=== PATIENT | female | born 1935 | race Caucasian/White ===

== ENCOUNTER → 2016-10-17 | Outpatient (CLI) | payer OTHER ==
[2016-10-17 13:06] LABS: URINE APPEARANCE CLEAR (CLEAR); URINE BILIRUBIN NEG (NEG); URINE COLOR YELLOW; URINE NITRITE POS (NEG); URINE PH 7.5 (4.5-7.5); URINE SPECIFIC GRAVITY 1.011 (1.000-1.030); UROBILINOGEN NEG (NEG)
[2016-10-17 13:13] LABS: MANUAL MICROSCOPIC REQUIRED? NO; REVIEW REQ? NO
[2016-10-17 13:14] LABS: SULFASALICYLIC ACID POS (NEG)
== END | disposition home or self-care (01) ==
LOC: C.LABOAKS 13:21
PROVIDERS: ATTEND Nurse Practitioner
DX: R30.0 Dysuria (principal)

== ENCOUNTER → 2016-11-21 | Outpatient (CLI) | payer OTHER ==
--- NOTE | 2016-11-29 08:48 | CODING QUERY MEDICAL NECESSITY ---
SUPPORTING DIAGNOSIS NEEDED A supporting diagnosis is required for the test/procedure performed on this patient in order for us to be reimbursed by the patient's insurance. Please provide a supporting diagnosis for the following test/procedure listed below next to the test name along with your signature. *If there is no additional diagnosis for this patient that would support the following test/procedure please document that below next to the test/procedure. Test(s)/Procedure(s) that require a supporting diagnosis: * VITAMIN B12 DIAGNOSIS: Provider Signature: Date: Thank you Barbara [place] [employer] Once completed, please kindly fax back to [phone] For questions please call [phone]
== END | disposition home or self-care (01) ==
LOC: C.LABOAKS 10:34
PROVIDERS: ATTEND Nurse Practitioner
DX: D64.9 Anemia, unspecified (principal); E53.8 Deficiency of other specified B group vitamins

== ENCOUNTER → 2017-03-21 | Outpatient (CLI) | payer OTHER ==
--- NOTE | 2017-03-21 11:24 | DIAGNOSTIC IMAGING REPORT ---
THORACIC SPINE 3 VIEWS ROUTINE CLINICAL HISTORY: 82 years-old Female presenting with M81.0 [id number], mid back pain. TECHNIQUE: 3 views of the thoracic spine were obtained. COMPARISON: None. FINDINGS: Dextrocurvature of the thoracolumbar junction. Normal thoracic kyphosis. Vertebral bodies maintain normal height and alignment. Intervertebral disc spaces preserved. No radiographic evidence of a compression fracture or subluxation. No advanced degenerative change in the thoracic spine. Atherosclerosis of the aorta. Visualized portion of the lungs clear. IMPRESSION: No radiographic evidence of a compression deformity or subluxation. No advanced degenerative change. Mild scoliosis. Electronically signed by: Zacarias Jain M.D. 03/21/2017 11:22 AM Dictated Date/Time: 03/21/2017 11:21 AM
[2017-03-22 17:53] LABS: ALBUMIN 4.1 G/DL (3.8-4.8); GAMMA GLOBULIN 1.2 G/DL (0.8-1.7); TOTAL PROTEIN 7.1 G/DL (6.2-8.3)
== END | disposition home or self-care (01) ==
LOC: C.LAB1850 10:40
PROVIDERS: ATTEND Internal Medicine Rheumatology
DX: M81.0 Age-related osteoporosis without current pathological fracture (principal); E55.9 Vitamin D deficiency, unspecified; E61.8 Deficiency of other specified nutrient elements

== ENCOUNTER → 2017-05-08 | Outpatient (CLI) | payer OTHER ==
[~2017-05-08] MED LIST: ACET-1311 PO; TRAM-10 PO
== END | disposition home or self-care (01) ==
LOC: C.LAB1850 11:55
PROVIDERS: ATTEND Internal Medicine Rheumatology
DX: E55.9 Vitamin D deficiency, unspecified (principal)

== ENCOUNTER 2017-05-10 17:48 | Emergency (ER) | payer OTHER ==
[~2017-05-10] VITALS: Ht 162.6 cm; Wt 58.1 kg
[2017-05-10 18:00] VITALS: TEMP 36.5; Ht 162.6 cm; Wt 58.1 kg
[2017-05-10] MEDS ORDERED: HYDROCODONE/ACETAMOPHEN 5/325MG TAB PO STA (18:18)
[2017-05-10] MEDS ORDERED: ACET-1311 PO (18:30)
[2017-05-10] MEDS ORDERED: TRAM-10 PO (18:30)
--- NOTE | 2017-05-10 19:30 | DIAGNOSTIC IMAGING REPORT ---
RIGHT HUMERUS 2 VIEWS CLINICAL HISTORY: Fall with right arm pain. FINDINGS: AP and lateral views of the right humerus are obtained. No prior studies are available for comparison at the time of dictation. The skeletal structures are osteopenic. There is an impacted fracture of the humeral head and neck. Small posteriorly distracted fragments are identified. Overlying soft tissue edema is noted. The remainder of the humerus appears intact. There is no evidence of shoulder dislocation. The elbow joint is grossly maintained. IMPRESSION: Osteopenia noting an impacted fracture of the right humeral head and neck. Electronically signed by: Raul Gramajo M.D. 05/10/2017 7:28 PM Dictated Date/Time: 05/10/2017 7:27 PM
--- NOTE | 2017-05-10 19:30 | DIAGNOSTIC IMAGING REPORT ---
CT SCAN OF THE LUMBAR SPINE WITHOUT IV CONTRAST CLINICAL HISTORY: Fall with low back pain. COMPARISON STUDY: No priors. TECHNIQUE: CT scan of the lumbar spine is performed from the lower thoracic spine to the sacrum. Images are reviewed in the axial, sagittal, and coronal planes. IV contrast was not administered for this examination. A dose lowering technique was utilized adhering to the principles of ALARA. The examination is degraded by scoliosis. CT DOSE: 752.89 mGy.cm FINDINGS: The skeletal structures are osteopenic. There is no evidence of fracture or malalignment involving the lumbar spine. Vertebral body height is maintained. Minimal anterolisthesis is seen at L4-L5. Alignment is otherwise preserved. There is moderate lumbar levocurvature centered at L3. The transverse and spinous processes are intact. There is no evidence of spondylolysis. No lytic or blastic lesion is seen. Anterior and lateral marginal osteophytes are seen throughout. Moderate facet arthropathy is seen in the lower lumbar region. There is moderate to advanced disc space narrowing seen at L1-L2, L2-L3, and L5-S1. Mild disc space narrowing is seen at the remaining lumbar levels. Posterior disc osteophyte complexes are seen at L1-L2, L2-L3, and L3-L4. These may contribute to multilevel acquired compromise of the central canal. There is no CT evidence of large disc herniation. The visualized sacrum and bony pelvis appear intact. There is fatty atrophy of the paraspinous musculature. There is asymmetric atrophy of the right iliopsoas musculature as compared to the left. Advanced atherosclerotic calcification is seen in the abdominal aorta. IMPRESSION: 1. There is no evidence of fracture or malalignment involving the lumbar spine. 2. Osteopenia with advanced spondylotic change and scoliosis as above. Dictated: 05/10/2017 7:13 PM Transcribed: 05/10/2017 7:29 PM [email or web address] Electronically signed by: Raul Gramajo M.D. 05/10/2017 7:29 PM Dictated Date/Time: 05/10/2017 7:13 PM
--- NOTE | 2017-05-10 19:50 | EMERGENCY ROOM VISIT NOTE ---
ED Visit Note First contact with patient: 18:08 The patient was seen and examined with Julianna Valles PA-C. I agree with the history, physical and findings. Please see the note for disposition and details.
--- NOTE | 2017-05-10 20:01 | EMERGENCY ROOM VISIT NOTE ---
History First contact with patient: 18:08 Chief Complaint: FALL Stated Complaint: FALL/ BACK & R ARM PAIN / OAKS History of Present Illness The patient is a 82 year old female who presents to the Emergency Room via ambulance from the [facility] with complaints of falling and injuring her right arm and low back. The patient states that she got her feet caught in the carpet and fell landing on her low back and on her right arm. The patient denies any head injury or loss of consciousness. The patient denies any dizziness or visual changes. The patient is not on any blood thinners. The patient denies any neck or upper back pain. The patient denies any known stone tingling in her lower legs. Patient denies a loss of bowel or bladder control. The patient denies any saddle anesthesia. The patient points to the mid upper arm as he area pain. The patient denies any elbow or wrist pain. Review of Systems 10 system review was performed and was negative unless stated otherwise history of present illness. Past Medical/Surgical History Alzheimer's dementia, GERD, carotid artery disease, osteoporosis, osteoarthritis , acute glaucoma, hypertension Social History Smoking Status: Never Smoker Housing Status: [facility] Current/Historical Medications Scheduled PRN Tramadol (Ultram), 1 TAB PO TID PRN for Pain Miscellaneous Medications Acetaminophen (Tylenol), 325 MG PO Physical Exam Vital Signs Date Time Temp Pulse Resp B/P (MAP) Pulse Ox O2 Delivery O2 Flow Rate FiO2 05/10/17 18:28 82 05/10/17 18:00 36.5 77 22 170/82 96 Room Air Physical Exam GENERAL: 82-year-old white female appears in no acute distress. MENTAL Status: Patient is alert. The patient appears to be demented. She asked the same questions repeatedly. She does not remember what we tell her. HEAD: Atraumatic, nontender to palpation. EYES: PERRLA. EOMs intact. EARS: Canals clear. TMs without hemotympanum a.m. NECK: Supple, no lymphadenopathy noted. No carotid bruits noted. LUNGS: Clear auscultation without wheezes rales or rhonchi. CARDIAC: Regular rate and rhythm without murmur. Pulses is full and equal throughout. NEURO: Grossly intact LUMBAR SPINE: No gross bony deformity noted. The patient is tender to palpation over the lower lumbar spinous processes. She is also tender to palpation in the paravertebral region at this level. Range of motion was not assessed. Muscle strength is 5 out of 5 bilateral lower extremities and symmetrical. RIGHT HUMERUS: No gross bony deformity noted. The patient is tender to palpation over the mid to proximal humerus. She is non-tender to palpation over the shoulder joint as well as the elbow joint. Elbow has full range of motion. Computer Forensic Examiner strength is 5 out of 5 as compared to the left. Medical Decision & Procedures ER Provider Diagnostic Interpretation: CT SCAN OF THE LUMBAR SPINE WITHOUT IV CONTRAST CLINICAL HISTORY: Fall with low back pain. COMPARISON STUDY: No priors. TECHNIQUE: CT scan of the lumbar spine is performed from the lower thoracic spine to the sacrum. Images are reviewed in the axial, sagittal, and coronal planes. IV contrast was not administered for this examination. A dose lowering technique was utilized adhering to the principles of ALARA. The examination is degraded by scoliosis. CT DOSE: 752.89 mGy.cm FINDINGS: The skeletal structures are osteopenic. There is no evidence of fracture or malalignment involving the lumbar spine. Vertebral body height is maintained. Minimal anterolisthesis is seen at L4-L5. Alignment is otherwise preserved. There is moderate lumbar levocurvature centered at L3. The transverse and spinous processes are intact. There is no evidence of spondylolysis. No lytic or blastic lesion is seen. Anterior and lateral marginal osteophytes are seen throughout. Moderate facet arthropathy is seen in the lower lumbar region. There is moderate to advanced disc space narrowing seen at L1-L2, L2-L3, and L5-S1. Mild disc space narrowing is seen at the remaining lumbar levels. Posterior disc osteophyte complexes are seen at L1-L2, L2-L3, and L3-L4. These may contribute to multilevel acquired compromise of the central canal. There is no CT evidence of large disc herniation. The visualized sacrum and bony pelvis appear intact. There is fatty atrophy of the paraspinous musculature. There is asymmetric atrophy of the right iliopsoas musculature as compared to the left. Advanced atherosclerotic calcification is seen in the abdominal aorta. IMPRESSION: 1. There is no evidence of fracture or malalignment involving the lumbar spine. 2. Osteopenia with advanced spondylotic change and scoliosis as above. Dictated: 05/10/2017 7:13 PM Transcribed: 05/10/2017 7:29 PM [email or web address] Electronically signed by: Raul Gramajo M.D. 05/10/2017 7:29 PM Dictated Date/Time: 05/10/2017 7:13 PM The status of this report is Signed. Draft = Not yet reviewed or approved by Radiologist. Signed = Reviewed and approved by Radiologist. <AttendingPhy></AttendingPhy> <FamilyPhy>Zacarias Almanza M.D.</FamilyPhy> < PrimaryPhy>Zacarias Almanza M.D.</PrimaryPhy> <UnitNumber>[id number]</UnitNumber> < VisitNumber>[id number]</VisitNumber> <PatientName>CURT BEDOLLA</PatientName > <DateOfBirth>1935</DateOfBirth> <Location>[facility]</Location> <ServiceDate> 05/10/17</ServiceDate> <MNE>ESINDI</MNE> <OrderingPhy>Patsy Chavez PA-C</ OrderingPhy> <OrderingPhyMNE>f rep ord dr fontaine</OrderingPhyMNE> <DictatingPhyMNE> f rep dict dr fontaine</DictatingPhyMNE> <CCListMNE>f rep ct zhen</CCListMNE> < AdmittingPhyMNE>f pt admit dr fontaine</AdmittingPhyMNE> <AttendingPhyMNE>f pt attend dr fontaine</AttendingPhyMNE> <ConsultingPhyMNE>f pt consult dr fontaine</ConsultingPhyMNE> <FamilyPhyMNE>f pt fam dr fontaine</FamilyPhyMNE> <OtherPhyMNE>f pt other dr fontaine</OtherPhyMNE> < PrimaryPhyMNE>f pt prim care dr fontaine</PrimaryPhyMNE> <ReferringPhyMNE>f pt referring dr fontaine</ReferringPhyMNE> RIGHT HUMERUS 2 VIEWS CLINICAL HISTORY: Fall with right arm pain. FINDINGS: AP and lateral views of the right humerus are obtained. No prior studies are available for comparison at the time of dictation. The skeletal structures are osteopenic. There is an impacted fracture of the humeral head and neck. Small posteriorly distracted fragments are identified. Overlying soft tissue edema is noted. The remainder of the humerus appears intact. There is no evidence of shoulder dislocation. The elbow joint is grossly maintained. IMPRESSION: Osteopenia noting an impacted fracture of the right humeral head and neck. Electronically signed by: Raul Gramajo M.D. 05/10/2017 7:28 PM Dictated Date/Time: 05/10/2017 7:27 PM The status of this report is Signed. Draft = Not yet reviewed or approved by Radiologist. Signed = Reviewed and approved by Radiologist. Medications Administered Medications (Trade) Dose Ordered Sig/[place] Route Start Time Stop Time Status Last Admin Dose Admin Acetaminophen/ Hydrocodone Bitart (Ayr 5/325 Tab) 1 tab NOW STAT PO 05/10/17 18:18 05/10/17 18:22 DC 05/10/17 18:30 1 TAB ED Course The patient was evaluated. The patient was given Ayr 5/325 mg one tablet by mouth for pain. CT of the lumbar spine was ordered and interpreted by the radiologist as above without any acute fractures.. X-ray of the right humerus was ordered and interpreted by the radiologist as above with impacted fracture of the humeral neck and head. The patient was independently evaluated by Dr Garay who agreed with treatment plan. The patient was placed in an arm sling and discharged back to the [facility] in stable condition.. Medical Decision The patient had a ground-level fall and did not strike her head and did not complain of any head pain or neck pain therefore CT of the head and neck were not performed. The patient pointed directly to her right humerus as the area of pain into her lower back. Therefore x-rays of the humerus was ordered as well as a CT of the low back due to the patient's history of osteoporosis. The patient will be placed in an arm sling and will follow-up with orthopedics on an outpatient basis. [place] Drug Monitoring Program Search Results: patient reviewed within database Medication Reconcilliation Current Medication List: was personally reviewed by pa Blood Pressure Screening Patient's blood pressure: Elevated blood pressure Blood pressure disposition: Elevated BP felt to be situational Impression Primary Impression: Fall Additional Impressions: Fracture, humerus, anatomical neck Lumbar contusion Departure Information Dispostion Home / Self-Care Condition GOOD Referrals Zacarias Almanza M.D. (PCP) Forms HOME CARE DOCUMENTATION FORM, IMPORTANT VISIT INFORMATION Patient Instructions Humerus , [email or web address] Additional Instructions Keep arm in sling until evaluated by orthopedics. Call [facility] tomorrow for follow-up appointment. Tylenol as needed for pain. Take the tramadol the ER already prescribed on an as-needed basis for more severe pain. Problem Qualifiers Primary Impression: Fall Encounter type: initial encounter Qualified Codes: W19.XXXA - Unspecified fall, initial encounter
[2017-05-10 20:54] VITALS: BP 149/71; PULSE 82; O2SAT 100
== END 2017-05-10 20:57 | disposition home or self-care (01) ==
LOC: EDBD 17:48 → C.EDA 17:50
DX: S49.91XA Unspecified injury of right shoulder and upper arm, initial encounter (principal); S42.291A Other displaced fracture of upper end of right humerus, initial encounter for closed fracture; S30.0XXA Contusion of lower back and pelvis, initial encounter; Y92.129 Unspecified place in nursing home as the place of occurrence of the external cause; W18.09XA Striking against other object with subsequent fall, initial encounter; G30.9 Alzheimer's disease, unspecified; F02.80 Dementia in other diseases classified elsewhere, unspecified severity, without behavioral disturbance, psychotic disturbance, mood disturbance, and anxiety; K21.9 Gastro-esophageal reflux disease without esophagitis; I25.10 Atherosclerotic heart disease of native coronary artery without angina pectoris; M81.0 Age-related osteoporosis without current pathological fracture; I10 Essential (primary) hypertension; M19.90 Unspecified osteoarthritis, unspecified site

== ENCOUNTER 2017-05-31 07:49 | Emergency (ER) | payer OTHER ==
[~2017-05-31] VITALS: Ht 162.6 cm; Wt 52.3 kg
[2017-05-31 08:06] VITALS: Ht 162.6 cm; Wt 52.3 kg
[2017-05-31] MEDS ORDERED: ACET-1256 PO (08:18)
[2017-05-31] MEDS ORDERED: ERGO500037 PO (08:18)
[2017-05-31] MEDS ORDERED: AMLO-114 PO (08:18)
[2017-05-31] MEDS ORDERED: MCRK/10 PO (08:18)
[2017-05-31] MEDS ORDERED: DONE10TA12 PO (08:18)
[2017-05-31] MEDS ORDERED: ASPI81TA28 PO (08:18)
[2017-05-31] MEDS ORDERED: SENN-91 PO (08:18)
[2017-05-31] MEDS ORDERED: TRAM-10 PO (08:18)
[2017-05-31] MEDS ORDERED: CALC500T67 PO (08:18)
[2017-05-31] MEDS ORDERED: CYAN10005 PO (08:18)
[2017-05-31] MEDS ORDERED: CHOLCAP5 PO (08:18)
[2017-05-31] MEDS ORDERED: DOCU100C31 PO (08:18)
[2017-05-31 08:45] LABS: BASO % 0.2 %; BASO ABS # 0.02 K/uL (0-0.2); EOS % 0.3 %; EOS ABS # 0.04 K/uL (0-0.5); HEMATOCRIT 38.9 % (37-47); HEMOGLOBIN 13.5 g/dL (12.0-16.0); IG# 0.06 K/uL (0.00-0.02); LYMPH % 10.7 %; LYMPH ABS # 1.23 K/uL (1.2-3.4); MEAN CELL VOLUME 96.5 fL (80-100); MEAN CORPUSCULAR HEMOGLOBIN 33.5 pg (25-34); MEAN CORPUSCULAR HGB CONC 34.7 g/dl (32-36); MEAN PLATELET VOLUME 8.6 fL (7.4-10.4); MONO % 13.1 %; MONO ABS # 1.51 K/uL (0.11-0.59); NEUT % 75.2 %; NEUT ABS # 8.67 K/uL (1.4-6.5); PLATELET COUNT 410 K/uL (130-400); RED CELL DISTRIBUTION WIDTH CV 13.5 % (11.5-14.5); RED CELL DISTRIBUTION WIDTH SD 47.4 fL (36.4-46.3); WHITE BLOOD COUNT 11.53 K/uL (4.8-10.8)
[2017-05-31 08:52] LABS: INR 1.1 (0.9-1.1); PTT PATIENT 34.9 SECONDS (21.0-31.0)
--- NOTE | 2017-05-31 08:53 | DIAGNOSTIC IMAGING REPORT ---
R HAND MIN 3 VIEWS ROUTINE HISTORY: 82 years-old Female hand swelling/pain acute right hand pain and swelling COMPARISON: None available TECHNIQUE: 4 views of the right hand FINDINGS: The bones appear very demineralized. Chondrocalcinosis is noted about several of the metacarpophalangeal joints and also within the region of the TFCC. Scapholunate interval measures in the upper limits of normal, 3 mm. There is no acute fracture or dislocation identified. Remote fracture deformity of the mid shaft fifth metacarpal. There is mild to moderate soft tissue swelling about the hand, notably seen within the dorsal hand and also about the wrist volarly. No opaque foreign body identified. Multifocal degenerative changes are noted with severe first carpometacarpal, triscaphe and moderate to severe metacarpophalangeal and interphalangeal degenerative changes throughout. Chronic remodeling changes are seen most notably within the DIP and PIP joints. No evidence of erosive arthropathy. IMPRESSION: 1. No acute fracture or dislocation. 2. Osteoporotic appearance of the bones with multifocal degenerative changes and chondrocalcinosis as above. 3. Scapholunate interval measures in the upper limits of normal. 4. Mild to moderate soft tissue swelling about the hand and wrist. 5. Remote fracture deformity of the fifth metacarpal. The above report was generated using voice recognition software. It may contain grammatical, syntax or spelling errors. Electronically signed by: Alex Carlson M.D. 05/31/2017 8:51 AM Dictated Date/Time: 05/31/2017 8:47 AM
--- NOTE | 2017-05-31 09:04 | DIAGNOSTIC IMAGING REPORT ---
CHEST ONE VIEW PORTABLE CLINICAL HISTORY: EVALUATE WEAKNESS dyspnea COMPARISON STUDY: None FINDINGS: Prominent parenchymal markings primarily in the upper lobe regions and left base. Diaphragms are smooth. No significant cardiac enlargement. Mild ectasia of the thoracic aorta. Old fracture right humeral neck. 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 Mild superimposed inflammatory process is not entirely excluded in the absence of prior exams. The above report was generated using voice recognition software. It may contain grammatical, syntax or spelling errors. Electronically signed by: Jacob Chavez M.D. 05/31/2017 9:03 AM Dictated Date/Time: 05/31/2017 9:02 AM
--- NOTE | 2017-05-31 09:05 | DIAGNOSTIC IMAGING REPORT ---
HEAD WITHOUT CONTRAST (CT) CLINICAL HISTORY: 82 years-old Female with EVALUATE WEAKNESS. Acute weakness status post fall TECHNIQUE: Multiple axial CT images of the head were obtained without contrast. A dose lowering technique was utilized adhering to the principles of ALARA. CT DOSE: 614.27 mGy.cm COMPARISON: None. FINDINGS: No acute intracranial hemorrhage, midline shift, intracranial mass, hydrocephalus, territorial ischemia or abnormal extra-axial collection. Moderate atrophy with ex vacuo ventriculomegaly. Multifocal patchy and confluent areas of decreased attenuation are seen within the subcortical, deep and periventricular white matter suggesting chronic microvascular ischemic changes. The calvarium is intact. The mastoid air cells, and middle ear cavities are clear. Small air-fluid level of the left sphenoid sinus compatible with acute sinusitis. Remaining paranasal sinuses appear generally clear. Soft tissues and orbits are unremarkable. IMPRESSION: 1. No acute intracranial abnormality or calvarial fracture. 2. Mild acute left sphenoid sinus disease. The above report was generated using voice recognition software. It may contain grammatical, syntax or spelling errors. Electronically signed by: Alex Carlson M.D. 05/31/2017 9:03 AM Dictated Date/Time: 05/31/2017 9:00 AM
[2017-05-31 09:16] LABS: ALBUMIN 2.8 gm/dl (3.4-5.0); ALT/SGPT 26 U/L (12-78); BLOOD UREA NITROGEN 8 mg/dl (7-18); CALCIUM 8.1 mg/dl (8.5-10.1); CARBON DIOXIDE 26 mmol/L (21-32); CREATININE 0.38 mg/dl (0.60-1.20); GLUCOSE 93 mg/dl (70-99); LIPASE 144 U/L (73-393); SODIUM 126 mmol/L (136-145)
[2017-05-31 09:24] LABS: ALKALINE PHOSPHATASE 110 U/L (45-117); AST/SGOT 21 U/L (15-37); TOTAL PROTEIN 6.4 gm/dl (6.4-8.2)
[2017-05-31] MEDS ORDERED: CEFTRIAXONE SOD INJ 1 GM ADDVIAL IV STA (09:26)
[2017-05-31 10:35] VITALS: O2SAT 92
[2017-05-31] MEDS ORDERED: CEPH500C PO (11:07)
--- NOTE | 2017-05-31 11:07 | EMERGENCY ROOM VISIT NOTE ---
History Report prepared by Maria Del Carmen: Blanka Guerrero Under the Supervision of: Dr. Freddie Garay M.D. 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 She presents to the ED by EMS. The fall was not witnessed. Positive right hand pain. Negative chest pain, SOB, neck pain, back pain, arm pain, leg pain. The history is somewhat limited secondary to the patient's Alzheimer's. 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 Review of Systems Limited secondary to patient's Alzheimer's. Past Medical & Surgical Medical Problems: (1) Acute glaucoma (2) Alzheimer's dementia (3) Carotid artery disease (4) GERD (gastroesophageal reflux disease) (5) Hypertension (6) Osteoarthritis (7) Osteoporosis Family History Noncontributory secondary to age. Social History Smoking Status: Never Smoker Housing Status: custodial Current/Historical Medications Scheduled Amlodipine (Norvasc), 10 MG PO QAM Aspirin (Aspirin Ec), 81 MG PO QAM Calcium Carbonate-Vitamin D (Oyst-Juan Diego-D 500), 1 TAB PO QAM Cephalexin Monohydrate (Keflex), 500 MG PO QID Cholecalciferol (Vitamin D3), 5,000 UNITS PO QAM Cyanocobalamin (Vitamin B-12), 1,000 MCG PO QAM Donepezil Hydrochloride (Aricept), 10 MG PO HS Ergocalciferol (Vitamin D 04151 Unit), 50,000 UNIT PO WK Potassium Chloride (K-Tabs), 10 MEQ PO BID Sennosides-Docusate Sodium (Senna S), 1 TAB PO DAILY Scheduled PRN Acetaminophen (Tylenol), 500 MG PO Q4H PRN for Pain or Fever Docusate Sodium (Docusate Sodium), 100 MG PO BID PRN for Constipation Tramadol (Ultram), 50 MG PO Q6H PRN for Pain Allergies Coded Allergies: SHO Inhibitors (Unverified Allergy, Mild, unknown, 05/10/17) Alendronate (Unverified Allergy, Mild, unknown, 05/10/17) Amoxicillin (Unverified Allergy, Mild, unknown, 05/10/17) Clavulanic Acid (Unverified Allergy, Mild, unknown, 05/10/17) Diclofenac (Unverified Allergy, Mild, unknown, 05/10/17) Pravastatin (Unverified Allergy, Mild, unknown, 05/10/17) Rosuvastatin (Unverified Allergy, Mild, unknown, 05/10/17) Statins (Unverified Allergy, Mild, unknown, 05/10/17) Ezetimibe (Unverified Allergy, Unknown, unknown, 05/10/17) Physical Exam Vital Signs Date Time Temp Pulse Resp B/P (MAP) Pulse Ox O2 Delivery O2 Flow Rate FiO2 05/31/17 11:37 36.8 91 24 122/93 95 05/31/17 11:06 91 24 95 05/31/17 11:01 122/93 05/31/17 10:36 87 20 91 05/31/17 10:35 92 Nasal Cannula 2.0 05/31/17 10:31 123/72 05/31/17 10:29 86 19 92 05/31/17 10:01 127/73 05/31/17 09:59 81 21 93 05/31/17 09:31 109/59 05/31/17 09:29 64 18 91 05/31/17 09:24 93 19 93 05/31/17 09:00 121/67 05/31/17 08:59 127/68 05/31/17 08:30 117/78 05/31/17 08:24 90 15 91 05/31/17 08:19 89 17 93 Room Air 05/31/17 08:06 94 Room Air 05/31/17 08:04 97 05/31/17 08:00 123/70 05/31/17 07:57 36.8 90 18 130/69 94 Room Air Physical Exam GENERAL: Awake, alert, well-appearing, NAD HENT: Normocephalic, atraumatic. EYES: Anisocoria right greater than left. Normal conjunctiva. Sclera non- icteric. NECK: Supple. No nuchal rigidity. FROM. RESPIRATORY: CTAB, no rhonchi, wheezing, crackles CARDIAC: RRR, no MRG ABDOMEN: Soft, NTND, BS+ MSK: RUE hand exam is limited secondary to pain. Patient has some swelling and redness over the dorsum of the right hand. Sensation intact. Blanching erythema over that area. No pain in the neck, back, chest, abdomen, LUE, and b/l LE. NEURO: GCS 15, CN 2-12 intact, moves all 4s on command SKIN: No rash or jaundice noted. Medical Decision & Procedures ER Provider Diagnostic Interpretation: Xray results as stated below per my and radiologist interpretation. Radiology results as stated below per my review and radiologist interpretation: CHEST ONE VIEW PORTABLE CLINICAL HISTORY: EVALUATE WEAKNESS dyspnea COMPARISON STUDY: None FINDINGS: Prominent parenchymal markings primarily in the upper lobe regions and left base. Diaphragms are smooth. No significant cardiac enlargement. Mild ectasia of the thoracic aorta. Old fracture right humeral neck. 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 Mild superimposed inflammatory process is not entirely excluded in the absence of prior exams. The above report was generated using voice recognition software. It may contain grammatical, syntax or spelling errors. Electronically signed by: Jacob Chavez M.D. 05/31/2017 9:03 AM Dictated Date/Time: 05/31/2017 9:02 AM R HAND MIN 3 VIEWS ROUTINE HISTORY: 82 years-old Female hand swelling/pain acute right hand pain and swelling COMPARISON: None available TECHNIQUE: 4 views of the right hand FINDINGS: The bones appear very demineralized. Chondrocalcinosis is noted about several of the metacarpophalangeal joints and also within the region of the TFCC. Scapholunate interval measures in the upper limits of normal, 3 mm. There is no acute fracture or dislocation identified. Remote fracture deformity of the mid shaft fifth metacarpal. There is mild to moderate soft tissue swelling about the hand, notably seen within the dorsal hand and also about the wrist volarly. No opaque foreign body identified. Multifocal degenerative changes are noted with severe first carpometacarpal, triscaphe and moderate to severe metacarpophalangeal and interphalangeal degenerative changes throughout. Chronic remodeling changes are seen most notably within the DIP and PIP joints. No evidence of erosive arthropathy. IMPRESSION: 1. No acute fracture or dislocation. 2. Osteoporotic appearance of the bones with multifocal degenerative changes and chondrocalcinosis as above. 3. Scapholunate interval measures in the upper limits of normal. 4. Mild to moderate soft tissue swelling about the hand and wrist. 5. Remote fracture deformity of the fifth metacarpal. The above report was generated using voice recognition software. It may contain grammatical, syntax or spelling errors. Electronically signed by: Alex Carlson M.D. 05/31/2017 8:51 AM Dictated Date/Time: 05/31/2017 8:47 AM HEAD WITHOUT CONTRAST (CT) CLINICAL HISTORY: 82 years-old Female with EVALUATE WEAKNESS. Acute weakness status post fall TECHNIQUE: Multiple axial CT images of the head were obtained without contrast. A dose lowering technique was utilized adhering to the principles of ALARA. CT DOSE: 614.27 mGy.cm COMPARISON: None. FINDINGS: No acute intracranial hemorrhage, midline shift, intracranial mass, hydrocephalus, territorial ischemia or abnormal extra-axial collection. Moderate atrophy with ex vacuo ventriculomegaly. Multifocal patchy and confluent areas of decreased attenuation are seen within the subcortical, deep and periventricular white matter suggesting chronic microvascular ischemic changes. The calvarium is intact. The mastoid air cells, and middle ear cavities are clear. Small air-fluid level of the left sphenoid sinus compatible with acute sinusitis. Remaining paranasal sinuses appear generally clear. Soft tissues and orbits are unremarkable. IMPRESSION: 1. No acute intracranial abnormality or calvarial fracture. 2. Mild acute left sphenoid sinus disease. The above report was generated using voice recognition software. It may contain grammatical, syntax or spelling errors. Electronically signed by: Alex Carlson M.D. 05/31/2017 9:03 AM Dictated Date/Time: 05/31/2017 9:00 AM Laboratory Results 05/31/17 08:30 Red Blood Count 4.03, Mean Corpuscular Volume 96.5, Mean Corpuscular Hemoglobin 33.5, Mean Corpuscular Hemoglobin Concent 34.7, Mean Platelet Volume 8.6, Neutrophils (%) (Auto) 75.2, Lymphocytes (%) (Auto) 10.7, Monocytes (%) (Auto) 13.1, Eosinophils (%) (Auto) 0.3, Basophils (%) (Auto) 0.2, Neutrophils # (Auto ) 8.67, Lymphocytes # (Auto) 1.23, Monocytes # (Auto) 1.51, Eosinophils # (Auto ) 0.04, Basophils # (Auto) 0.02 05/31/17 08:30 Test 05/31/17 08:30 White Blood Count 11.53 K/uL (4.8-10.8) Red Blood Count 4.03 M/uL (4.2-5.4) Hemoglobin 13.5 g/dL (12.0-16.0) Hematocrit 38.9 % (37-47) Mean Corpuscular Volume 96.5 fL (80-100) Mean Corpuscular Hemoglobin 33.5 pg (25-34) Mean Corpuscular Hemoglobin Concent 34.7 g/dl (32-36) Platelet Count 410 K/uL (130-400) Mean Platelet Volume 8.6 fL (7.4-10.4) Neutrophils (%) (Auto) 75.2 % Lymphocytes (%) (Auto) 10.7 % Monocytes (%) (Auto) 13.1 % Eosinophils (%) (Auto) 0.3 % Basophils (%) (Auto) 0.2 % Neutrophils # (Auto) 8.67 K/uL (1.4-6.5) Lymphocytes # (Auto) 1.23 K/uL (1.2-3.4) Monocytes # (Auto) 1.51 K/uL (0.11-0.59) Eosinophils # (Auto) 0.04 K/uL (0-0.5) Basophils # (Auto) 0.02 K/uL (0-0.2) RDW Standard Deviation 47.4 fL (36.4-46.3) RDW Coefficient of Variation 13.5 % (11.5-14.5) Immature Granulocyte % (Auto) 0.5 % Immature Granulocyte # (Auto) 0.06 K/uL (0.00-0.02) Prothrombin Time 11.2 SECONDS (9.0-12.0) Prothromb Time International Ratio 1.1 (0.9-1.1) Activated Partial Thromboplast Time 34.9 SECONDS (21.0-31.0) Partial Thromboplastin Ratio 1.3 Anion Gap 11.0 mmol/L (3-11) Est Creatinine Clear Calc Drug Dose 94.2 ml/min Estimated GFR () 114.3 Estimated GFR (Non- 98.7 BUN/Creatinine Ratio 21.1 (10-20) Calcium Level 8.1 mg/dl (8.5-10.1) Magnesium Level 2.5 mg/dl (1.8-2.4) Total Bilirubin 0.7 mg/dl (0.2-1) Direct Bilirubin 0.2 mg/dl (0-0.2) Aspartate Amino Transf (AST/SGOT) 21 U/L (15-37) Alanine Aminotransferase (ALT/SGPT) 26 U/L (12-78) Alkaline Phosphatase 110 U/L (45-117) Total Creatine Kinase 33 U/L (26-192) Troponin I < 0.015 ng/ml (0-0.045) Pro-B-Type Natriuretic Peptide 232 pg/ml (0-1800) Total Protein 6.4 gm/dl (6.4-8.2) Albumin 2.8 gm/dl (3.4-5.0) Lipase 144 U/L (73-393) Thyroid Stimulating Hormone (TSH) 1.130 uIu/ml (0.300-4.500) Laboratory results reviewed by me Medications Administered Medications (Trade) Dose Ordered Sig/[place] Route Start Time Stop Time Status Last Admin Dose Admin Ceftriaxone Sodium (Rocephin Inj) 1 gm NOW STAT IV 05/31/17 09:26 05/31/17 09:28 DC 05/31/17 09:38 1 GM ECG Indication: other (fall) Rate (beats per minute): 92 Rhythm: sinus rhythm Findings: 1st degree AV block, Q waves (Anterior, Inferior), left axis deviation, other (prolonged NV, normal QRS) Comparison ECG Date: no prior available Change: Patient's electrocardiogram interpreted by me. ED Course 0753: The patient was evaluated in room A2. A complete history and physical exam was performed. 0959: I reevaluated the patient. I updated her son-in-law on the results. manager of application development will speak with them. 1119: I reevaluated the patient. Discussed results and discharge instructions: He verbalized understanding and agreement. The patient is ready for discharge. 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 Differential diagnosis: Etiologies such as vasovagal event, infection, hypoglycemia, electrolyte abnormalities, cardiac sources, intracerebral event, toxicologic, neurologic, cellulitis, sprain, strain, fracture as well as others were entertained. Patient seen and evaluated at bedside. Concern for fall at shelter. Patient h/ o Alzheimer's so somewhat limited hx. Patient has had two falls in last month or two. Recent humerus frx. Patient w/ mild hand swelling and pain. Unsure if related to fall. Patient had blood work, EKG, trop, CT brain, CXR, UA completed. WBC 11. Kidney function WNL. Patient w/ mild hyponatremia. Not volume overloaded. Do not believe related to HF, ARF, or liver dysfunction. Less likely primary polydispia. Patient CXR neg acute. Hand film neg acute for frx/d/l. CT brain neg. EKG w/o overt abnormality. Trop neg. Patient likely UTI and given hand cellulitis will place on Keflex QID which should cover for both. Patient had family member at bedside. Concern about recent falls. They discussed additional care. Sounds as though the shelter recommends 24H care, which they cannot provide. Son in law and shelter pending discussion for increased care. Patient looks and feels well. No acute complaints. Given Rocephin for UTI and should help w/ cellulitis given same class of abx. Deemed suitable and safe for outpatient f/u and trx. Did state she should have repeat blood work to review Na. Patient d/c'ed to home. Medication Reconcilliation Current Medication List: was personally reviewed by me Blood Pressure Screening Patient's blood pressure: Elevated blood pressure Blood pressure disposition: Referred to PCP Impression Primary Impression: UTI (urinary tract infection) Additional Impressions: Cellulitis of hand Fall Hyponatremia Scribe Attestation The scribe's documentation has been prepared under my direction and personally reviewed by me in its entirety. I confirm that the note above accurately reflects all work, treatment, procedures, and medical decision making performed by me. Departure Information Dispostion Home / Self-Care Prescriptions Cephalexin Monohydrate (Keflex) 500 Mg Cap 500 MG PO QID for 7 Days, #28 CAP Prov: Freddie Garay M.D. 05/31/17 Referrals Zacarias Almanza M.D. (PCP) Patient Instructions Cellulitis - [facility], ED Mechanical Fall, ED UTI Cystitis Female, My [facility] Additional Instructions Please return to the emergency department if you have worsening or recurrent symptoms not amenable to at-home treatment. Please call for a follow-up appointment with her primary care physician. Please take your medications as prescribed. If you have other concerns and/or complaints please feel free to also call your primary care physician's office or return the ED for further evaluation, management, and treatment. You were found to have an elevated blood pressure today (>120 sytolic or >90 diastolic). Per medicare guidelines, you need to follow up with this blood pressure screening with your Primary Care Physician (PCP). For a new PCP call [phone]. You received narcotic or benzodiazepene medication while in the emergency room today. This is an addictive medication that may cause drowziness as well as constipation. Do not drive, operate heavy machinery, or drink alcohol under the influence of this medication. You may take 200 mg Ibuprofen every 6 hours as needed for pain with food for no more than 2 consecutive days. You may take tylenol 650 mg every 6 hours as needed for pain. You may take motrin and tylenol separately or at the same time. Take your medications as prescribed. If taking an antibiotic consider taking a probiotic and/or eating yogurt, but at the least, please take with food as it can cause upset stomach. If culture results are not available at discharge, if they are positive for concern of infection, you will be informed of the results as soon as they are available. You have been examined and treated today on an emergency basis only. This is not a substitute for, or an effort to provide, complete comprehensive medical care. It is impossible to recognize and treat all injuries or illnesses in a single emergency department visit. It is therefore important that you follow up closely with [facility], your PCP, and/or your specialist(s). Call as soon as possible for an appointment. Thank you for your time and consideration. I look forward to speaking with you again soon. Please don't hesitate to call us if you have any questions. Problem Qualifiers Primary Impression: UTI (urinary tract infection) Urinary tract infection type: acute cystitis Hematuria presence: with hematuria Qualified Codes: N30.01 - Acute cystitis with hematuria Additional Impressions: Fall Encounter type: initial encounter Qualified Codes: W19.XXXA - Unspecified fall, initial encounter
[2017-05-31 11:37] VITALS: BP 122/93; PULSE 91; TEMP 36.8; O2SAT 95
== END 2017-05-31 11:39 | disposition home or self-care (01) ==
LOC: EDBD 07:49 → C.EDA 07:51
DX: N39.0 Urinary tract infection, site not specified (principal); L03.113 Cellulitis of right upper limb; E87.1 Hypo-osmolality and hyponatremia; W19.XXXA Unspecified fall, initial encounter; G30.9 Alzheimer's disease, unspecified; F02.80 Dementia in other diseases classified elsewhere, unspecified severity, without behavioral disturbance, psychotic disturbance, mood disturbance, and anxiety; K21.9 Gastro-esophageal reflux disease without esophagitis; I25.10 Atherosclerotic heart disease of native coronary artery without angina pectoris; M81.0 Age-related osteoporosis without current pathological fracture; M19.90 Unspecified osteoarthritis, unspecified site; H40.9 Unspecified glaucoma; I10 Essential (primary) hypertension; Z79.899 Other long term (current) drug therapy; Z79.82 Long term (current) use of aspirin

== ENCOUNTER → 2017-06-05 | Outpatient (CLI) | payer OTHER ==
[~2017-06-05] MED LIST changes: +ACET-1256 PO; -ACET-1311 PO; +AMLO-114 PO; +ASPI81TA28 PO; +CALC500T67 PO; +CEPH500C PO; +CHOLCAP5 PO; +CYAN10005 PO; +DOCU100C31 PO; +DONE10TA12 PO; +ERGO500037 PO; +MCRK/10 PO; +SENN-91 PO
[2017-06-05 13:05] LABS: BLOOD UREA NITROGEN 6 mg/dl (7-18); CALCIUM 8.5 mg/dl (8.5-10.1); CARBON DIOXIDE 29 mmol/L (21-32); CREATININE 0.46 mg/dl (0.60-1.20); GLUCOSE 88 mg/dl (70-99); POTASSIUM 3.8 mmol/L (3.5-5.1); SODIUM 134 mmol/L (136-145)
== END | disposition home or self-care (01) ==
LOC: C.LABOAKS 15:13
PROVIDERS: ATTEND Nurse Practitioner
DX: E87.1 Hypo-osmolality and hyponatremia (principal)

== ENCOUNTER → 2017-06-07 | Outpatient (CLI) | payer OTHER | END | disposition home or self-care (01) | LOC: C.MAMM 10:35 | PROVIDERS: ATTEND Internal Medicine Rheumatology | DX: M81.0 Age-related osteoporosis without current pathological fracture (principal); S32.030A Wedge compression fracture of third lumbar vertebra, initial encounter for closed fracture; X58.XXXA Exposure to other specified factors, initial encounter ==

== ENCOUNTER 2017-11-25 04:06 | Emergency (ER) | payer OTHER ==
[~2017-11-25] VITALS: Ht 165.1 cm; Wt 50.5 kg
[2017-11-25 04:06] VITALS: Ht 165.1 cm; Wt 50.5 kg
[~2017-11-25 04:06] MED LIST changes: -AMLO-114 PO; +AMLO10TA3 PO; -CEPH500C PO
[2017-11-25] MEDS ORDERED: POTA1CAP53 PO (04:29)
[2017-11-25] MEDS ORDERED: DICL1GEL12 TD (04:33)
--- NOTE | 2017-11-25 05:53 | EMERGENCY ROOM VISIT NOTE ---
History Report prepared by Maria Del Carmen: Cheri Acuña Under the Supervision of: Dr. Onel Alicia M.D. First contact with patient: 04:39 Chief Complaint: BACK PAIN Stated Complaint: BACK PAIN History of Present Illness The patient is an 82 year old female who presents to the Emergency Room with complaints of intermittent back pain starting this morning. Per nursing staff, the patient is unsure why she is here, but she has dementia. The patient states that she has pain when she moves. She notes that she doesn't remember hurting it. The patient denies leg pain and abdominal pain. Source of History: patient Onset: this morning Position: back Timing: intermittent Modifying Factors (Worsening): movement Associated Symptoms: No abdominal pain Note: The patient denies leg pain. Review of Systems See HPI for pertinent positives & negatives. A total of 10 systems reviewed and were otherwise negative. Past Medical & Surgical Medical Problems: (1) Acute glaucoma (2) Alzheimer's dementia (3) Carotid artery disease (4) GERD (gastroesophageal reflux disease) (5) Hypertension (6) Osteoarthritis (7) Osteoporosis Family History No pertinent family history Social History Smoking Status: Former Smoker Marital Status: Housing Status: longterm Occupation Status: retired Current/Historical Medications Scheduled Amlodipine (Norvasc), 10 MG PO QAM Aspirin (Aspirin Ec), 81 MG PO QAM Calcium Carbonate-Vitamin D (Oyst-Juan Diego-D 500), 1 TAB PO QAM Cholecalciferol (Vitamin D3), 5,000 UNITS PO QAM Cyanocobalamin (Vitamin B-12), 1,000 MCG PO QAM Donepezil Hydrochloride (Aricept), 10 MG PO HS Potassium Chloride (Klor-Con Sprinkle), 10 MEQ PO AMHS Sennosides-Docusate Sodium (Senna S), 1 TAB PO DAILY Scheduled PRN Acetaminophen (Tylenol), 500 MG PO Q4H PRN for Pain or Fever Diclofenac Sodium (Topical) (Voltaren 1% Top Gel), 1 APPLN TD Q6H PRN for Pain Allergies Coded Allergies: SHO Inhibitors (Unverified Allergy, Mild, unknown, 05/10/17) Alendronate (Unverified Allergy, Mild, unknown, 05/10/17) Amoxicillin (Unverified Allergy, Mild, unknown, 05/10/17) Clavulanic Acid (Unverified Allergy, Mild, unknown, 05/10/17) Diclofenac (Unverified Allergy, Mild, unknown, 05/10/17) Pravastatin (Unverified Allergy, Mild, unknown, 05/10/17) Rosuvastatin (Unverified Allergy, Mild, unknown, 05/10/17) Statins (Unverified Allergy, Mild, unknown, 05/10/17) Ezetimibe (Unverified Allergy, Unknown, unknown, 05/10/17) Physical Exam Vital Signs Date Time Temp Pulse Resp B/P (MAP) Pulse Ox O2 Delivery O2 Flow Rate FiO2 11/25/17 06:10 72 20 157/83 98 11/25/17 04:06 36.6 59 20 143/74 98 Room Air Physical Exam GENERAL: Patient is elderly appearing and severely demented. EYES: No scleral icterus, unremarkable pupils. ENT: Mucous membranes moist, no nasal congestion. NECK: No masses appreciated, no meningismus, trachea is midline. RESPIRATORY: No dyspnea. Clear to auscultation and equal bilaterally. No wheeze , no rhonchi. CARDIOVASCULAR: Regular rate and rhythm. No murmurs, rubs, gallops appreciated. GASTROINTESTINAL: Abdomen soft, nontender, no peritonitis. Bowel sounds positive. No masses appreciated. BACK: No midline tenderness, vague pain with palpation of the left CVA and lower lumbar. Pain with sitting up. EXTREMITIES: Normal motion all extremities, no cyanosis, no edema. NEUROLOGIC: Alert and oriented, no acute motor or sensory deficits, no focal weakness, cranial nerves grossly intact. SKIN: No rash, no jaundice, no diaphoresis. Medical Decision & Procedures ER Provider Diagnostic Interpretation: Radiology results and stated below per my review and radiologist interpretation: LUMBAR SPINE WITHOUT CT DOSE: HISTORY: Pain low back pain TECHNIQUE: Multiaxial CT images of the lumbar spine were performed and reformatted in the sagittal and coronal plane without the use of contrast. A dose lowering technique was utilized adhering to the principles of ALARA. COMPARISON: None. FINDINGS: Considerable degenerative disc change throughout. No evidence for an acute compression deformity. Degenerative change posterior elements. Osteopenia. IMPRESSION: Considerable degenerative change of the entire lumbar region. No acute bony abnormality. Mild scoliosis. The above report was generated using voice recognition software. It may contain grammatical, syntax or spelling errors. Electronically signed by: Jacob Chavez M.D. 11/25/2017 6:50 AM Dictated Date/Time: 11/25/2017 6:47 AM ABD/PELVIS WITHOUT FOR STONE CT DOSE: 297.71 mGy.cm HISTORY: Pain left flank pain TECHNIQUE: Multiaxial CT images of the abdomen and pelvis were performed without the use of intravenous and oral contrast according to the standard department stone protocol. A dose lowering technique was utilized adhering to the principles of ALARA. COMPARISON STUDY: None. FINDINGS: The lung bases are clear. The unenhanced liver, gallbladder, spleen, pancreas, and adrenal glands are unremarkable. No renal stones or hydronephrosis. No bowel wall thickening or obstruction. The pelvic organs are unremarkable. No suspicious lytic or blastic osseous lesions. No evidence for an obstructing urinary tract calculus. Nonobstructive bowel pattern. IMPRESSION: No acute process. The above report was generated using voice recognition software. It may contain grammatical, syntax or spelling errors. Electronically signed by: Jacob Chavez M.D. 11/25/2017 6:51 AM Dictated Date/Time: 11/25/2017 6:50 AM ED Course 0439: The patient was evaluated in room B12B. A complete history and physical exam was performed. 0507: I reevaluated the patient and she is back from CT. 0611: Reevaluated the patient. Discussed results and discharge instructions: She verbalized understanding and agreement. The patient is ready for discharge. Medical Decision Differential: Musculoskeletal, Disc Herniation, Fracture, Cord Compression, Discitis, Infectious, Aortic Pathology, Renal Colic, UTI/Pyelonephritis, Acute Exacerbation of Chronic Pain, Sciatica, Cauda Equina, amongst other pathologies entertained. 82 yr old female arrives for evaluation of left back pain. Vague TTP but does seem to bother her with movement. She is severely demented and thus story is quite limited other than what was passed on by EMS from longterm. UA clear. CT abdo/pelvis/lumbar without acute findings. No evidence rash on examination. She is stable, comfortable and in no distress. Discharged back to longterm as patient looks very well and I do not feel that she requires further work-up and to do so would require sedating patient given her agitation when she gets evaluated, but happy otherwise. Medication Reconcilliation Current Medication List: was personally reviewed by me Blood Pressure Screening Patient's blood pressure: Elevated blood pressure Blood pressure disposition: Elevated BP felt to be situational Impression Primary Impression: Left-sided back pain Additional Impression: Left low back pain Scribe Attestation The scribe's documentation has been prepared under my direction and personally reviewed by me in its entirety. I confirm that the note above accurately reflects all work, treatment, procedures, and medical decision making performed by me. Departure Information Dispostion Home / Self-Care Referrals Ena Wolfe, C.R.N.P. (PCP) Forms HOME CARE DOCUMENTATION FORM, IMPORTANT VISIT INFORMATION Patient Instructions My [facility] Additional Instructions CT Scanning of Abdomen, Pelvic, and Lumbar spine reveals no acute findings nor fractures. There is no evidence of kidney stone. Monitor for worsening pain, rashes, fevers, vomiting or other concerns. Follow up with Primary Care Provider in the next few days. Problem Qualifiers
[2017-11-25 06:10] VITALS: BP 157/83; PULSE 72; O2SAT 98
--- NOTE | 2017-11-25 06:51 | DIAGNOSTIC IMAGING REPORT ---
LUMBAR SPINE WITHOUT CT DOSE: HISTORY: Pain low back pain TECHNIQUE: Multiaxial CT images of the lumbar spine were performed and reformatted in the sagittal and coronal plane without the use of contrast. A dose lowering technique was utilized adhering to the principles of ALARA. COMPARISON: None. FINDINGS: Considerable degenerative disc change throughout. No evidence for an acute compression deformity. Degenerative change posterior elements. Osteopenia. IMPRESSION: Considerable degenerative change of the entire lumbar region. No acute bony abnormality. Mild scoliosis. The above report was generated using voice recognition software. It may contain grammatical, syntax or spelling errors. Electronically signed by: Jacob Chavez M.D. 11/25/2017 6:50 AM Dictated Date/Time: 11/25/2017 6:47 AM
--- NOTE | 2017-11-25 06:53 | DIAGNOSTIC IMAGING REPORT ---
ABD/PELVIS WITHOUT FOR STONE CT DOSE: 297.71 mGy.cm HISTORY: Pain left flank pain TECHNIQUE: Multiaxial CT images of the abdomen and pelvis were performed without the use of intravenous and oral contrast according to the standard department stone protocol. A dose lowering technique was utilized adhering to the principles of ALARA. COMPARISON STUDY: None. FINDINGS: The lung bases are clear. The unenhanced liver, gallbladder, spleen, pancreas, and adrenal glands are unremarkable. No renal stones or hydronephrosis. No bowel wall thickening or obstruction. The pelvic organs are unremarkable. No suspicious lytic or blastic osseous lesions. No evidence for an obstructing urinary tract calculus. Nonobstructive bowel pattern. IMPRESSION: No acute process. The above report was generated using voice recognition software. It may contain grammatical, syntax or spelling errors. Electronically signed by: Jacob Chavez M.D. 11/25/2017 6:51 AM Dictated Date/Time: 11/25/2017 6:50 AM
== END 2017-11-25 06:46 | disposition home or self-care (01) ==
LOC: EDBD 04:06 → C.EDB 04:07
DX: M54.5 Low back pain (principal); G30.9 Alzheimer's disease, unspecified; F02.80 Dementia in other diseases classified elsewhere, unspecified severity, without behavioral disturbance, psychotic disturbance, mood disturbance, and anxiety; I10 Essential (primary) hypertension; Z87.891 Personal history of nicotine dependence; Z79.82 Long term (current) use of aspirin; Z79.899 Other long term (current) drug therapy; Z88.0 Allergy status to penicillin; Z88.6 Allergy status to analgesic agent; Z88.1 Allergy status to other antibiotic agents; Z88.8 Allergy status to other drugs, medicaments and biological substances

== ENCOUNTER 2020-06-09 11:20 | Inpatient (IN) ==
[2020-06-09] MEDS ORDERED: MoRPHine SULFATE 2 MG/ML CARP IV PRN (11:27)
[2020-06-09] MEDS ORDERED: SODIUM CHLORIDE 0.9% 1000ML 1,000 ML IV SCH (11:30)
[2020-06-09 11:48] LABS: Basophils # (auto) 0.02 K/uL (0-0.2); Basophils % (auto) 0.1 %; Eosinophils # (auto) 0.01 K/uL (0-0.5); Eosinophils % (auto) 0.1 %; Hemoglobin 15.7 g/dL (12.0-16.0); Immature Granulocytes # (auto) 0.04 K/uL (0.00-0.02); Immature Granulocytes % (auto) 0.2 %; Mean Corpuscular Hemoglobin 33.5 pg (25-34); Mean Corpuscular Hgb Conc 34.1 g/dL (32-36); Mean Corpuscular Volume 98.3 fL (80-100); Mean Platelet Volume 9.9 fL (7.4-10.4); Monocytes # (auto) 1.03 K/uL (0.11-0.59); Neutrophils % (auto) 86.6 %; Platelet Count 259 K/uL (130-400); RDW Coefficient of Variation 13.4 % (11.5-14.5); RDW Standard Deviation 48.4 fL (36.4-46.3); Red Blood Count 4.68 M/uL (4.2-5.4)
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
[2020-06-09 12:01] LABS: Partial Thromboplastin Time 26.6 Seconds (21.0-31.0); Prothrombin Time 10.3 Seconds (9.0-12.0)
[2020-06-09 12:04] LABS: Albumin Level 3.7 gm/dl (3.4-5.0); BUN Creatinine Ratio 19.9 (10-20); Calcium 9.6 mg/dl (8.5-10.1); Creatinine Clr Calc Pharmacy 48.5 ml/min; Est GFR (African American) 94.3; Est GFR (Non-African American) 81.4; Potassium 3.8 mmol/L (3.5-5.1)
[2020-06-09 12:06] LABS: Albumin Globulin Ratio 0.8 (0.9-2); Bilirubin,Total 1.2 mg/dl (0.2-1); Globulin 4.5 gm/dl (2.5-4.0); Total Protein 8.2 gm/dl (6.4-8.2)
--- NOTE | 2020-06-09 12:11 | XRay Report ---
XR hip LT min 2V CLINICAL HISTORY: Fall. COMPARISON: Pelvis radiograph December 27, 2018. FINDINGS: Note is made of an acute displaced left femoral neck fracture. Superior displacement of th e distal component is noted. IMPRESSION: Acute displaced left femoral neck fracture. ACT 112: Negative or not required by law. Electronically signed by: Pola Newton M.D. 06/09/2020 12:09 PM
--- NOTE | 2020-06-09 12:28 | XRay Report ---
XR chest 1V portable HISTORY: Fall. Hip fracture. Preop. COMPARISON: Chest 12/27/2018. FINDINGS: No pneumothorax. No pleural effusions. Old, healed right humeral neck fracture. There are f ew old, healed right lower rib fractures. No acute fractures identified. The heart remains top normal in size. Diffuse interstitial thickening and biapical pleural thickening remains unchanged. This is likely chronic. No evidence for pulmonary edema. There is mild elevation the right hemidiaphragm, unc hanged. IMPRESSION: No change in the diffuse interstitial thickening and biapical pleural thickening. This is consistent with chronic fibrotic change. ACT 112: Negative or not required by law. Electronically signed by: Andrea Rosario M.D. 06/09/2020 12:27 PM
[2020-06-09 13:09] LABS: Appearance Urine Turbid (Clear); Bacteria Urine Automated 4+ (Negative); Bilirubin Urine Negative (Negative); Blood Urine 3+ (Negative); Color Urine Yellow; Epithelial Cell Urine Auto >30 /lpf (0-5); Glucose Urine UA Negative (Negative); Ketones Urine Trace (Negative); Leukocyte Esterase Urine Trace (Negative); Nitrite Urine Negative (Negative); Protein Urine Negative (Negative); RBC Urine Automated >30 /hpf (0-4); Urobilinogen Urine Negative (Negative)
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
[2020-06-09] MEDS ORDERED: NALOXONE HCL 0.4 MG/1 ML VIAL/CARP IV PRN (15:16)
[2020-06-09] MEDS ORDERED: bisacodyL 10 MG SUPP PR PRN (15:16)
[2020-06-09] MEDS ORDERED: IBUPROFEN 200 MG TAB PO PRN (15:16)
[2020-06-09] MEDS ORDERED: MAGNESIUM HYDROXIDE SUSP 30 ML UDC PO PRN (15:16)
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
[2020-06-09] MEDS: ACETAMINOPHEN 500 MG TAB PO SCH ×2 (15:42→20:21)
[2020-06-09] MEDS: HYDROmorphone INJ 0.5 MG/0.5 ML SYR IV PRN (16:09)
[2020-06-09] MEDS: NYSTATIN POWDER 15GM BTL EXT SCH ×2 (16:56→23:17)
--- NOTE | 2020-06-09 19:41 | Progress Notes ---
DATE: 06/09/2020 The patient was seen in conjunction with Barrera Wong. For further details, refer to his dictation. He and I saw and evaluated this patient and I am in agreement with plan. Lizeth is 85 and unfortunately fell down. I have noted her past medical history. This includes dementia. She does not provide any useful historical information. Her left leg is shortened and externally rotated. She cannot move her left leg. Log rolling is painful. There is no bruising or swelling. Posterior tibial is trace palpable. She can wiggle her toes and move her ankle slightly, but does not comply with a detailed neuromuscular exam. She can move both arms and her right knee without difficulty. Radiographs show a displaced transverse mid cervical fracture of the left femoral neck. I have reviewed her labs. Her white count is likely elevated due to stress response. I spoke with her son-in-law who has power of disability attorney. I discussed with him the treatment options, the risks, benefits, alternatives and recovery. We talked about operative and nonoperative methods of management. It is the family's wishes that the patient have surgery. We will plan on a cemented bipolar hemiarthroplasty tomorrow. She will be n.p.o. after midnight. We will need outpatient workup for osteoporosis. We will need to give her vitamin D. Hold any anticoagulation at this point. A telephone consent was obtained.
[2020-06-09] MEDS: DOCUSATE SODIUM/SENNA 50/8.6MG TAB PO SCH (20:21)
[2020-06-09] MEDS: DONEPEZIL HCL 10 MG TAB PO SCH (20:21)
[2020-06-10] MEDS: SODIUM CHLORIDE 0.9% 1000ML 1,000 ML IV SCH ×2 (03:53→18:27)
[2020-06-10] MEDS ORDERED: ceFAZolin 1000MG 1,000 MG/7.5 ML SYR IV SCH (06:00)
[2020-06-10] MEDS ORDERED: INFLUENZA ADMINISTRATION CHARGE ONE (06:00)
[2020-06-10] MEDS ORDERED: INFLUENZA VACCINE HIGH DOSE 65+ 0.7 ML SYR IM ONE (06:00)
--- NOTE | 2020-06-10 06:16 | Electrocardiogram Report ---
Test Reason : Blood Pressure : / mmHG Vent. Rate : 079 BPM Atrial Rate : 079 BPM P-R Int : 222 ms QRS Dur : 074 ms QT Int : 414 ms P-R-T Axes : 035 -34 065 degrees QTc Int : 474 ms Sinus rhythm with 1st degree A-V block Possible Left atrial enlargement Left axis deviation Inferior infarct (cited on or before 31-MAY-2017) Anteroseptal infarct (cited on or before 31-MAY-2017) Abnormal ECG When compared with ECG of 31-MAY-2017 08:16, Premature supraventricular complexes are no longer Present Confirmed by Aman Hardy ([id number]) on 06/10/2020 6:15:36 AM Referred By: REFERRED SELF Confirmed By:Aman Hardy
[2020-06-10 06:43] LABS: Basophils # (auto) 0.03 K/uL (0-0.2); Basophils % (auto) 0.2 %; Eosinophils # (auto) 0.47 K/uL (0-0.5); Eosinophils % (auto) 3.8 %; Hematocrit (blood only) 40.2 % (37-47); Hemoglobin 13.5 g/dL (12.0-16.0); Immature Granulocytes # (auto) 0.03 K/uL (0.00-0.02); Immature Granulocytes % (auto) 0.2 %; Lymphocytes # (auto) 1.81 K/uL (1.2-3.4); Lymphocytes % (auto) 14.8 %; Mean Corpuscular Hemoglobin 32.8 pg (25-34); Mean Corpuscular Hgb Conc 33.6 g/dL (32-36); Mean Corpuscular Volume 97.8 fL (80-100); Monocytes # (auto) 0.92 K/uL (0.11-0.59); Monocytes % (auto) 7.5 %; Neutrophils # (auto) 9.01 K/uL (1.4-6.5); Neutrophils % (auto) 73.5 %; Platelet Count 218 K/uL (130-400); RDW Coefficient of Variation 13.4 % (11.5-14.5); RDW Standard Deviation 48.2 fL (36.4-46.3); Red Blood Count 4.11 M/uL (4.2-5.4); White Blood Count 12.27 K/uL (4.8-10.8)
[2020-06-10 07:09] LABS: BUN Creatinine Ratio 19.2 (10-20); Calcium 8.8 mg/dl (8.5-10.1); Creatinine Clr Calc Pharmacy 72.2 ml/min; Est GFR (African American) 107.5; Est GFR (Non-African American) 92.7; Potassium 3.3 mmol/L (3.5-5.1)
[2020-06-10] MEDS: NYSTATIN POWDER 15GM BTL EXT SCH ×2 (09:57→18:11)
[2020-06-10] MEDS: ESCITALOPRAM OXALATE 10 MG TAB PO SCH (09:58)
[2020-06-10] MEDS: CALCIUM 600MG + VIT D 400 IU TAB PO SCH (09:58)
[2020-06-10] MEDS: ACETAMINOPHEN 500 MG TAB PO SCH ×3 (09:58→22:03)
[2020-06-10] MEDS: CHOLECALCIFEROL 1,000 UNITS 25 MCG TAB PO SCH (09:58)
[2020-06-10] MEDS: amLODIPine BESYLATE 5 MG TAB PO SCH (09:58)
[2020-06-10] MEDS: ASPIRIN 81 MG ECTAB PO SCH (09:58)
--- NOTE | 2020-06-10 13:13 | History & Physical Bridge Note ---
Date of Service June 10, 2020 History & Physical Bridge Note I have examined the patient, reviewed the History & Physical and in the interval since the performance of the History & Physical I have noted the following changes of clinical significance: no changes noted
--- NOTE | 2020-06-10 13:24 | Progress Notes ---
DATE: 06/10/2020 Lizeth is resting comfortably in bed. She denies anything is wrong with her and wants me to leave the room. She is awake and alert but not oriented. She is afebrile and her vital signs are stable. Her labs are noted. White count trending downward to 12,000. Hemoglobin is 13.5. She has a left femoral neck fracture, which is displaced. She is scheduled for a hemiarthroplasty later today. I marked her operative site. She has a 2+ dorsalis pedis pulse and could flex and extend her ankle and toes, although she did not comply with the strength exam. This was on the left foot.
[2020-06-10] MEDS ORDERED: ONDANSETRON INJ 2 MG/ML 2 ML VIAL IV PRN (13:32)
[2020-06-10] MEDS ORDERED: ePHEDrine sulfate 50 MG/ML AMP IV PRN (13:32)
[2020-06-10] MEDS ORDERED: fentaNYL citrate 100 MCG/2 ML VIAL IV PRN (13:32)
[2020-06-10] MEDS ORDERED: ATROPINE SULFATE 0.1 MG/ML 10ML SYR IV PRN (13:32)
--- NOTE | 2020-06-10 13:35 | Anesthesiology Consultation ---
Date of Service June 10, 2020 Assessment & Plan (1) Encounter for pre-operative examination: Chart Review Chart Review: Acceptable Risk for Surgery and Patient NOT seen in Pre Admission Testing Consults Requested none History Surgery Operation Date: 06/10/20 09:20 Proposed Procedures p Left Hip Saman Arthroplasty - Zacarias Lyons MD Height/Weight Height: 5 ft 3 in Weight: 47.8 kg Allergies Allergy/AdvReac Type Severity Reaction Status Date / Time SHO Inhibitors Allergy Mild unknown Unverified 06/09/20 13:14 alendronate sodium Allergy Mild unknown Unverified 04/14/19 14:50 amoxicillin Allergy Mild unknown Unverified 04/14/19 14:50 capsaicin Allergy Mild unknown Unverified 04/14/19 14:50 clavulanic acid Allergy Mild unknown Unverified 04/14/19 14:50 diclofenac Allergy Mild unknown Unverified 04/14/19 14:50 Diclopak Allergy Mild unknown Unverified 05/10/17 18:33 pravastatin Allergy Mild unknown Unverified 06/09/20 13:14 rosuvastatin Allergy Mild unknown Unverified 06/09/20 13:14 Ngweraq-Tsg-Yty Reductase Allergy Mild unknown Unverified 06/09/20 13:14 Inhibitor ezetimibe Allergy Unknown unknown Unverified 04/14/19 14:50 metronidazole [From Flagyl] Allergy Verified 08/06/19 11:18 Medications Home Medications Medication Instructions Recorded Confirmed Last Taken acetaminophen 500 mg PO Q4H PRN 12/27/18 06/09/20 Unknown aspirin 81 mg PO DAILY 12/27/18 06/09/20 Unknown donepezil 10 mg PO HS 12/27/18 06/09/20 Unknown ibuprofen 200 mg PO Q6H PRN 12/27/18 06/09/20 Unknown amlodipine 5 mg tablet 5 mg PO DAILY #90 tab 04/14/19 06/09/20 Unknown nystatin 100,000 unit/gram topical 1 appln TOP Q8H #60 gm 07/23/19 06/09/20 Unknown powder calcium citrate-vitamin D3 1 tab PO DAILY 06/09/20 06/09/20 Unknown [Calcium Citrate + D] cholecalciferol (vitamin D3) 50 mcg PO DAILY 06/09/20 06/09/20 Unknown [Vitamin D3] escitalopram oxalate [Lexapro] 7.5 mg PO DAILY 06/09/20 06/09/20 Unknown Active Medications Generic Name Dose Route Start Last Admin Trade Name Freq PRN Reason Stop Dose Admin Acetaminophen 1,000 mg 06/09/20 16:00 06/10/20 09:58 Acetaminophen 500 Mg Tab PO 07/09/20 15:59 Not Given TID PRISCILLA Amlodipine Besylate 5 mg 06/10/20 09:00 06/10/20 09:58 Amlodipine Besylate 5 Mg Tab PO 07/10/20 08:59 Not Given DAILY PRISCILLA Aspirin 81 mg 06/10/20 09:00 06/10/20 09:58 Aspirin 81 Mg Ectab PO 07/10/20 08:59 Not Given DAILY PRISCILLA Donepezil HCl 10 mg 06/09/20 21:00 06/09/20 20:21 Donepezil Hcl 10 Mg Tab PO 07/09/20 20:59 10 mg HS PRISCILLA Administration Escitalopram Oxalate 7.5 mg 06/10/20 09:00 06/10/20 09:58 Escitalopram Oxalate 10 Mg Tab PO 07/10/20 08:59 Not Given DAILY PRISCILLA Hydromorphone HCl 0.5 mg 06/09/20 15:16 06/09/20 16:09 Hydromorphone Inj 0.5 Mg/0.5 Ml Syr IV 06/23/20 15:15 0.5 mg Q3H PRN Administration Pain (6,7,8,9,10) Sodium Chloride 1,000 mls @ 80 mls/hr 06/10/20 02:15 06/10/20 03:53 Nss 1000ml IV 07/10/20 02:14 80 mls/hr .[id number] PRISCILLA Administration Multivitamins/Minerals 1 tab 06/10/20 09:00 06/10/20 09:58 Calcium 600mg + Vit D 400 Iu Tab PO 07/10/20 08:59 Not Given DAILY PRISCILLA Nystatin 1 appln 06/09/20 16:00 06/10/20 09:57 Nystatin Powder 15gm Btl EXT 07/09/20 15:59 1 appln Q8H PRISCILLA Administration Senna/Docusate Sodium 2 tab 06/09/20 21:00 06/09/20 20:21 Docusate Sodium/Senna 50/8.6mg Tab PO 07/09/20 20:59 2 tab HS PRISCILLA Administration Vitamin D 2,000 units 06/10/20 09:00 06/10/20 09:58 Cholecalciferol 1,000 Units 25 Mcg Tab PO 07/10/20 08:59 Not Given DAILY PRISCILLA Past Medical History Medical History Acute angle-closure glaucoma Alzheimer's dementia Anxiety Arthritis Bladder prolapse Carotid artery disease Closed wedge compression fracture of L3 vertebra GERD (gastroesophageal reflux disease) Headache, migraine History of recurrent UTIs Hypertension Osteoarthritis Osteoporosis with fracture Exercise / Class Metabolic Activity IV < 2 Limit ADL/Bedbound Past Family History Family History Father Lung cancer Daughter Non Hodgkin's lymphoma Mother , in her mid 40s secondary to acute cerebral hemorrhage Cerebral hemorrhage Other Family history non-contributory Denies family history of Ovarian cancer Prostate cancer Myocardial infarction Breast cancer Colorectal cancer Past Surgical History Surgical History H/O eye surgery H/O: hysterectomy History of bunionectomy S/P bladder repair S/P eye surgery Correction of acute angle glaucoma S/P hysterectomy Secondary to uterine prolapse. Questionable oophorectomy Status post bunionectomy Past Anesthesia History No Hx of Anesthesia Complications and No Family Hx of Anesthesia Complications History of PONV No Hx of PONV and No Hx of Motion Sickness Social History Smoking Status: Unknown if ever smoked Do You Dip or Chew Tobacco: No Hx Alcohol Use: No Hx Substance Use: No Physical Exam Vital Signs Last Vital Signs Temp 36.7 C 06/10/20 10:45 Pulse 80 06/10/20 10:45 Resp 18 06/10/20 10:45 BP 162/80 H 06/10/20 10:45 Pulse Ox 96 06/10/20 10:45 Testing Laboratory Results 06/10/20 06:20 06/10/20 06:20 PT 10.3 Seconds (9.0-12.0) 06/09/20 11:33 INR 1.0 (0.9-1.1) 06/09/20 11:33 APTT 26.6 Seconds (21.0-31.0) 06/09/20 11:33 Urine Color Yellow 06/09/20 12:45 Urine Appearance Turbid (Clear) A 06/09/20 12:45 Urine pH 7.0 (4.5-7.5) 06/09/20 12:45 Ur Specific Brinkley 1.020 (1.000-1.030) 06/09/20 12:45 Urine Protein Negative (Negative) 06/09/20 12:45 Urine Glucose (UA) Negative (Negative) 06/09/20 12:45 Urine Ketones Trace (Negative) H 06/09/20 12:45 Urine Nitrite Negative (Negative) 06/09/20 12:45 Ur Leukocyte Esterase Trace (Negative) H 06/09/20 12:45 Urine WBC (Auto) 5-10 /hpf (0-5) H 06/09/20 12:45 Urine RBC (Auto) >30 /hpf (0-4) H 06/09/20 12:45 U Hyaline Cast (Auto) 5-10 /lpf (0-5) H 06/09/20 12:45 U Epithel Cells (Auto) >30 /lpf (0-5) H 06/09/20 12:45 Urine Bacteria (Auto) 4+ (Negative) H 06/09/20 12:45 Blood Type O Positive 06/09/20 11:40 Antibody Screen NEGATIVE 06/09/20 11:40 06/09/20 12:45 Urine Culture - Preliminary Urine,Straight Cath Pin-point growth present, reincubating. Electrocardiogram Date: 06/09/20 Findings: + NSR @ (79) DICTATED BY: Aman Hardy MD Test Reason : Blood Pressure : / mmHG Vent. Rate : 079 BPM Atrial Rate : 079 BPM P-R Int : 222 ms QRS Dur : 074 ms QT Int : 414 ms P-R-T Axes : 035 -34 065 degrees QTc Int : 474 ms Sinus rhythm with 1st degree A-V block Possible Left atrial enlargement Left axis deviation Inferior infarct (cited on or before 31-MAY-2017) Anteroseptal infarct (cited on or before 31-MAY-2017) Abnormal ECG When compared with ECG of 31-MAY-2017 08:16, Premature supraventricular complexes are no longer Present Confirmed by Aman Hardy ([id number]) on 06/10/2020 6:15:36 AM
[2020-06-10] MEDS ORDERED: fentaNYL citrate 100 MCG/2 ML VIAL ONE (13:44)
[2020-06-10] MEDS ORDERED: MIDAZOLAM HCL 1 MG/ML 2ML VIAL ONE (13:44)
[2020-06-10] MEDS ORDERED: BACITRACIN INJ 50,000 UNIT VIAL ONE (13:55)
[2020-06-10] MEDS ORDERED: THROMBIN FOR SOLN 20000 UNIT KIT ONE (13:55)
[2020-06-10] MEDS ORDERED: ALBUMIN HUMAN 5% 12.5 GM/250 ML VIAL IV ONE (14:03)
[2020-06-10] MEDS ORDERED: PROPOFOL IV EMULSION 10 MG/ML 100 ML VIAL IV ONE (14:04)
[2020-06-10] MEDS ORDERED: PROPOFOL IV EMULSION 10 MG/ML 20 ML VIAL IV ONE (14:04)
[2020-06-10] MEDS ORDERED: BUPIVACAINE 0.5 % 5 MG/1 ML PF 10ML VIAL ONE (14:12)
[2020-06-10] MEDS ORDERED: BUPIVACAINE/EPINEPHRINE 0.5% MPF 1:200,000 30 ML VIAL ONE (15:50)
[2020-06-10] MEDS ORDERED: TRANEXAMIC ACID / 0.7% NACL 1,000 MG/100 ML BAG IV ONE ×2 (16:04→16:13)
[2020-06-10] MEDS ORDERED: ePHEDrine sulfate 50 MG/ML AMP ONE (16:07)
[2020-06-10] MEDS ORDERED: PHENYLEPHRINE HCL 10 MG/ML VIAL ONE (16:07)
[2020-06-10] MEDS ORDERED: ONDANSETRON INJ 2 MG/ML 2 ML VIAL ONE (16:22)
--- NOTE | 2020-06-10 16:33 | Operative Report ---
Post Operative Report Pre & Post Diagnosis Operation Date: 06/10/20 09:20 Pre-Op Diagnosis: Left hip fracture Post-Op Diagnosis: Left hip fracture I identified the patient and participated in the time-out.: Yes Procedure Operation Date: 06/10/20 09:20 Actual Procedures p Left Hip Saman Arthroplasty(Left) - Zacarias Lyons MD Surgeon Zacarias Lyons MD It Risk Analyst Fatemeh Gallegos physicians primary teaching assistant. No resident or fellow available Estimated Blood Loss 50 Findings Consistent with Post-Op Diagnosis Specimens Femoral head Anesthesia Type Spinal MAC Complications none Disposition Accompanied Patient To Recovery: No Disposition: Recovery Room Indications Lizeth is an 85-year-old female with dementia who fell and fractured her left hip. Her family has elected to proceed with operative intervention. Description of Procedure Informed consent obtained. Patient identified. The left hip was identified as the operative site and I marked it with my initials. A preoperative surgical timeout was performed and a preop dose of IV antibiotics were given. She was taken to the operating room positioned supine on the OR table and the spinal anesthetic was administered. She was turned decubitus with the left side up. Axillary roll inserted. Stolberg positioner utilized. Bony prominences of the lower extremity inspected and padded. SCDs for DVT prophylaxis intraoperatively. Postoperatively she will have mechanical devices, mobility, teds and Lovenox. The leg was prescrubbed and prepped and draped in the usual sterile fashion. Patient's body habitus was very small. Half percent Marcaine with epinephrine was injected into the skin at the conclusion of the procedure. Towards the end of the procedure she received a dose of intravenous dose of TXA. Posterior approach to the hip was made with 15 cm incision. Electrocautery down through the skin subcutaneous tissues. One third of the incision below the trochanter two thirds above. The iliotibial band and fascia were in incised in line with the incision using cautery. Charnley retractor inserted. The short external rotators were elevated up off of the proximal femur. They were tagged for later repair. A posterior capsulotomy was performed and preserved for later repair. The femoral head was removed using tenaculum and skid. It was difficult to get the trial in. The trials of 45. I then went ahead and made a provisional neck cut 1 fingerbreadth up above the lesser trochanter. Template used. I was then able to insert the 45 mm diameter trial which fit and fill well with good stability in the acetabulum. She had a degenerative large labrum. There was redundancy of the labrum which folded in upon itself and some of this was removed. Superiorly there was degenerative labral maceration. The acetabulum otherwise was fine. The inferior and anterior capsule were released in order to help with visualization. Box osteotome utilized followed by the canal finder and lateralizing reamer. Broaching began at 11 proceeded up to size 14 with good fit and fill and stability. 30 degrees of anteversion were built into the broaching. Trialing was performed and the +35 gave good stability. The broach was removed and the canal was plugged 2 cm distal to the implant. Pulsatile lavage was performed followed by a thrombin soaked tampon to dry. 2 bags of Simplex P was mixed and injected in a retrograde fashion. The cement was pressurized and the implant was inserted taking care to avoid varus alignment laterally and inserted in 25 to 30 degrees of anteversion which was the apparent anteversion of her femoral neck. After the cement had hardened the trialing again was performed with 0 and +35. The +35 gave the best stability. Final head liner and shell were inserted. Copious pulsatile lavage was performed. The hip could be internally rotated 45 degrees in maximum abduction before there was any instability. There was no shock in full extension mid position or flexion. The short external rotators and posterior joint capsule were repaired back to the greater trochanter using #1 Ethibond sutures through the bone. The iliotibial band was closed with interrupted #1 Vicryl's. The gluteal fascia was closed with running #1 Vicryl. The skin was closed in layers using 0 and 2-0 Vicryl and jason on the skin. The local anesthetic injection was performed. Xeroform 4 x 4's ABD were applied. Foam tape. Patient was awake from anesthesia without difficulty and taken to the recovery room in stable condition. There were no complications. Counts were correct. The femoral head was sent for specimen. Blood loss is estimated to be 50 cc. At the conclusion of the operation spoke patient's family and informed him my findings. Plan will be to allow her to weight-bear as tolerated with assistance. She will likely need ongoing fdc care. Total hip precautions. The components inserted were the Raisa LD fracture size 14 stem with a 45 mm shell 45 mm liner 28 mm +3.5 mm head and a 12 mm distal cementralizer. I attest to the content of the Intraoperative Record and any orders documented therein. Any exceptions are noted below.
--- NOTE | 2020-06-10 16:49 | Anesthesiology Progress Note ---
Date of Service June 10, 2020 Anesthesia Post Procedure Vital Signs Vital Signs: Temp Pulse Pulse Resp BP Pulse Ox 06/10/20 13:43 37.1 C 72 20 170/93 H 99 06/10/20 10:45 36.7 C 80 18 162/80 H 96 06/10/20 07:34 36.4 C L 80 18 159/83 H 92 06/09/20 23:17 37.1 C 78 18 152/69 H 95 06/09/20 20:27 192/93 H Pain Intensity Left Hip: Pain Intensity: 10 Transfer of Care Handoff Completed per policy Notes Mental Status: alert / awake / arousable and participated in evaluation Patient Amnestic to Procedure: Yes Nausea / Vomiting: adequately controlled Pain: adequately controlled Airway Patency, RR, SpO2: stable & adequate BP & HR: stable & adequate Hydration State: stable & adequate Neuraxial Anesthesia: was administered and sensory block is resolving Anesthetic Complications: no major complications apparent and Pt Satisfied with anesthetic care
--- NOTE | 2020-06-10 16:51 | Operative Report ---
Post Operative Report Pre & Post Diagnosis Operation Date: 06/10/20 09:20 Pre-Op Diagnosis: Left hip fracture Post-Op Diagnosis: Left hip fracture I identified the patient and participated in the time-out.: Yes Procedure Operation Date: 06/10/20 09:20 Actual Procedures p Left Hip Saman Arthroplasty(Left) - Zacarias Lyons MD Surgeon Zacarias Lyons M.D. Shake Packer Fatemeh Gallegos physicians assistant housekeeping manager. No resident or fellow available Estimated Blood Loss 50 Findings Consistent with Post-Op Diagnosis Specimens Femoral head Drains None Anesthesia Type Spinal MAC Complications none Disposition Accompanied Patient To Recovery: Yes Disposition: Recovery Room Description of Procedure Patient was taken to the operating room, placed under spinal anesthesia. She was given 1gm IV Ancef for surgical prophylaxis. Time out performed, prepped and draped in routine sterile fashion. I was present during the entire case and assisted with positioning, tissue retraction, implantation of hardware, closure and dressings. Please see Dr. Lyons's operative report for further detail. Patient was awakened and transferred to recovery room in stable condition.
--- NOTE | 2020-06-10 17:34 | XRay Report ---
XR hip LT min 2V CLINICAL HISTORY: Post-Operative implant position COMPARISON: Left hip radiographs 06/09/2020. FINDINGS: Alignment of the left hip arthroplasty is anatomic. There is no periprosthetic fracture or unexpected radiopaque foreign body. There are skin jason. IMPRESSION: Expected findings following left hip arthroplasty. ACT 112: Negative or not required by law. Electronically signed by: Pola Newton M.D. 06/10/2020 5:33 PM
[2020-06-10] MEDS ORDERED: NALOXONE HCL 0.4 MG/1 ML VIAL/CARP IV PRN (18:08)
[2020-06-10] MEDS: HYDROmorphone INJ 0.5 MG/0.5 ML SYR IV PRN (19:52)
--- NOTE | 2020-06-10 21:26 | Hospitalist Progress Note ---
Date of Service June 10, 2020 Assessment & Plan (1) Closed fracture of left hip: Scheduled acetaminophen and as needed Dilaudid for pain relief Revised cardiac risk index 0, 3.9% 30 day risk of , [place] or cardiac arrest, likely underestimate given nutritional status and advanced dementia. Patient is medically optimized for surgery at this time. Patient had surgical repair today. will monitor overnight (2) Osteoporosis with fracture: Patient on Prolia as an outpatient. Follows with rheumatology therefore will defer repeating vitamin D level. (3) Vitamin D deficiency: Continue usual supplementation. (4) Hematuria: s/p catheterization, full UA pending at this time (5) Alzheimer's dementia: Continue donepezil 10 mg p.o. at bedtime (6) Hypertension: Continue amlodipine 5 mg p.o. daily (7) Anxiety: Continue Lexapro 7.5 mg p.o. daily (8) DVT prophylaxis: Chemical prophylaxis deferred to orthopedics postoperatively Admission and Anticipated Discharge Date Admission Date: June 09, 2020 Subjective Patient is drowsy after surgery. Review of Systems Review of Systems: All systems reviewed & are unremarkable except as noted in HPI & below Physical Exam Physical Exam: Constitutional: well developed and + frail appearing; no acute distress Eyes: PERRL, conjunctivae normal, anicteric sclerae ENMT: external ear and nose normal, oropharynx normal Neck: trachea midline Respiratory: normal respiratory effort, lungs clear to auscultation Cardiovascular: Rate/Rhythm: regular rate and regular rhythm Heart Sounds: no murmur Extremities: normal capillary refill; no calf tenderness and no pedal edema Gastrointestinal (Abdomen): normal bowel sounds, soft, nontender, no he patosplenomegaly Musculoskeletal: DP/PT pulses intact. Skin: no rashes, warm and dry Neurologic: awake and + confused Psychiatric: Orientation: alert; Eye Contact: good eye contact Genitourinary: no CVA tenderness Results & Data Results & Data ([facility]) Vital Signs (Past 12 Hours) Vital Signs Temp Pulse Pulse Pulse Resp BP Pulse Ox 06/10/20 19:40 36.5 C 74 18 126/70 97 06/10/20 18:50 36.6 C 86 16 133/78 93 06/10/20 18:23 87 06/10/20 17:30 81 18 134/76 97 06/10/20 17:20 83 19 131/78 97 06/10/20 17:10 36.8 C 83 19 142/77 H 97 06/10/20 17:00 82 18 145/78 H 98 06/10/20 16:50 79 19 146/72 H 98 06/10/20 16:42 36.2 C L 98 H 20 128/72 98 06/10/20 13:43 37.1 C 72 20 170/93 H 99 06/10/20 10:45 36.7 C 80 18 162/80 H 96 PG Care Time/CCT Total # of Minutes Spent Total Time Spent with Patient: Total time spent is greater than 50% in coordination of care (as documented) at patient's floor/unit and/or counseling patient: Coding Level of Care Code 96084 Subseq Hosp Care Lvl 2 Diagnoses Closed fracture of left hip S72.002A Encounter type: initial encounter Osteoporosis with fracture M80.80XA Vitamin D deficiency E55.9 Hematuria R31.9 Alzheimer's dementia G30.9; F02.80 Hypertension I10 Anxiety F41.9 DVT prophylaxis Z29.9 Time Spent (min) 25 (1) Closed fracture of left hip Encounter type: initial encounter Qualified Code(s): S72.002A - Fracture of unspecified part of neck of left femur, initial encounter for closed fracture
[2020-06-10] MEDS: ceFAZolin 1000MG 1,000 MG/7.5 ML SYR IV SCH (22:03)
[2020-06-10] MEDS: DOCUSATE SODIUM/SENNA 50/8.6MG TAB PO SCH (22:03)
[2020-06-10] MEDS: DONEPEZIL HCL 10 MG TAB PO SCH (22:03)
[2020-06-11] MEDS: NYSTATIN POWDER 15GM BTL EXT SCH ×3 (00:56→17:18)
[2020-06-11] MEDS: HYDROmorphone INJ 0.5 MG/0.5 ML SYR IV PRN (02:09)
[2020-06-11] MEDS: SODIUM CHLORIDE 0.9% 1000ML 1,000 ML IV SCH ×2 (06:38→20:57)
[2020-06-11] MEDS: ceFAZolin 1000MG 1,000 MG/7.5 ML SYR IV SCH ×2 (06:39→14:29)
[2020-06-11 07:34] LABS: BUN Creatinine Ratio 22.4 (10-20); Calcium 8.3 mg/dl (8.5-10.1); Est GFR (Non-African American) 79.4; Potassium 3.7 mmol/L (3.5-5.1)
[2020-06-11 07:46] LABS: Basophils # (auto) 0.03 K/uL (0-0.2); Basophils % (auto) 0.3 %; Eosinophils # (auto) 0.17 K/uL (0-0.5); Eosinophils % (auto) 1.6 %; Hematocrit (blood only) 31.3 % (37-47); Hemoglobin 9.9 g/dL (12.0-16.0); Immature Granulocytes # (auto) 0.02 K/uL (0.00-0.02); Immature Granulocytes % (auto) 0.2 %; Lymphocytes # (auto) 1.58 K/uL (1.2-3.4); Lymphocytes % (auto) 14.6 %; Mean Corpuscular Hemoglobin 31.9 pg (25-34); Mean Corpuscular Hgb Conc 31.6 g/dL (32-36); Mean Platelet Volume 10.1 fL (7.4-10.4); Monocytes # (auto) 1.05 K/uL (0.11-0.59); Monocytes % (auto) 9.7 %; Neutrophils # (auto) 7.94 K/uL (1.4-6.5); Neutrophils % (auto) 73.6 %; Platelet Count 194 K/uL (130-400); RDW Coefficient of Variation 13.6 % (11.5-14.5); RDW Standard Deviation 49.9 fL (36.4-46.3); White Blood Count 10.79 K/uL (4.8-10.8)
[2020-06-11] MEDS: ASPIRIN 81 MG ECTAB PO SCH (08:53)
[2020-06-11] MEDS: CALCIUM 600MG + VIT D 400 IU TAB PO SCH (08:53)
[2020-06-11] MEDS: ESCITALOPRAM OXALATE 10 MG TAB PO SCH (08:53)
[2020-06-11] MEDS: amLODIPine BESYLATE 5 MG TAB PO SCH (08:55)
[2020-06-11] MEDS: CHOLECALCIFEROL 1,000 UNITS 25 MCG TAB PO SCH (08:55)
[2020-06-11] MEDS: ACETAMINOPHEN 500 MG TAB PO SCH ×3 (08:55→21:20)
[2020-06-11] MEDS: ENOXAPARIN INJ 30 MG/0.3 ML SYR SQ SCH (10:00)
--- NOTE | 2020-06-11 10:45 | Orthopedic Progress Note ---
Date of Service June 11, 2020 Assessment & Plan (1) Status post hip hemiarthroplasty: PT/OT Total hip precautions Abduction pillow use Pain control with p.o. medication Will most likely need placement for rehab (case management assessment) Continue DVT prophylaxis with SQ Lovenox Primary care per medicine service We will continue to follow orthopedically while inpatient Admission and Anticipated Discharge Date Admission Date: June 09, 2020 Subjective This 85-year-old female is day 1 status post left hip hemiarthroplasty. She is currently lying in bed with abduction pillow placed between her legs. She seems to be comfortable. She is alert and oriented x1. She does complain of pain in her left leg but is not sure why she is in the hospital. It is very difficult to obtain other information due to her cognitive status and severe dementia. Review of Systems Review of Systems: Unobtainable due to cognitive status Physical Exam Physical Exam: Left hip: Dressing was clean dry and intact. Patient had tenderness to palpation around the dressing site. She was able to depict light sensation to touch around the dressing. Her calf is soft and supple nontender to palpation. She was able to actively dorsi and plantar flex her foot. Peripheral pulses were 2+. Capillary refill is less 2 seconds. Patient is neurovascularly intact in left lower extremity. Results & Data ([facility]) Vital Signs (Past 12 Hours) Vital Signs Temp Pulse Pulse Resp BP Pulse Ox 06/11/20 10:39 83 06/11/20 07:31 36.6 C 81 20 123/73 99 06/11/20 03:27 86 06/11/20 03:04 36.7 C 90 18 93/58 L 94 06/10/20 23:40 36.8 C 81 18 103/64 98 Laboratory Results 06/11/20 06/11/20 06/11/20 Range/Units 06:39 06:39 06:39 WBC 10.79 (4.8-10.8) K/uL RBC 3.10 L (4.2-5.4) M/uL Hgb 9.9 L D (12.0-16.0) g/dL Hct 31.3 L (37-47) % MCV 101.0 H (80-100) fL MCH 31.9 (25-34) pg MCHC 31.6 L (32-36) g/dL RDW Std Deviation 49.9 H (36.4-46.3) fL RDW Coeff of Toñito 13.6 (11.5-14.5) % Plt Count 194 (130-400) K/uL MPV 10.1 (7.4-10.4) fL Immature Gran % (Auto) 0.2 % Neut % (Auto) 73.6 % Lymph % (Auto) 14.6 % [place] % (Auto) 9.7 % Eos % (Auto) 1.6 % Baso % (Auto) 0.3 % Neut # (Auto) 7.94 H (1.4-6.5) K/uL Lymph # (Auto) 1.58 (1.2-3.4) K/uL [place] # (Auto) 1.05 H (0.11-0.59) K/uL Eos # (Auto) 0.17 (0-0.5) K/uL Baso # (Auto) 0.03 (0-0.2) K/uL Immature Gran # (Auto) 0.02 (0.00-0.02) K/uL Sodium 140 (136-145) mmol/L Potassium 3.7 (3.5-5.1) mmol/L Chloride 107 (98-107) mmol/L Carbon Dioxide 25 (21-32) mmol/L Anion Gap 8.0 (3-11) BUN 16 D (7-18) mg/dl Creatinine 0.69 (0.6-1.2) mg/dl Est Cr Clr Drug Dosing 45.0 ml/min Est GFR ( Amer) 92.0 Est GFR (Non-Af Amer) 79.4 BUN/Creatinine Ratio 22.4 H (10-20) Glucose 93 (70-99) mg/dl Calcium 8.3 L (8.5-10.1) mg/dl 25-OH Vitamin D Total 31.8 (30-100) ng/ml
--- NOTE | 2020-06-11 15:29 | Progress Notes ---
DATE: 06/11/2020 The patient was seen in conjunction with Zaid Nix PA-C. For further details, refer to his dictation. He and I saw the patient, I am in agreement with the plan. She is awake and alert but not oriented. She can wiggle her toes up and down and has a trace palpable posterior tibial pulse. Her dressing is clean and dry. Afebrile, stable vital signs, and her labs are noted. Her H and H is okay. She will continue on Lovenox. Continue total hip precautions and an abduction pillow. She will need placement. I will continue to follow up with her and monitor her. She can weightbear as tolerated with physical therapy.
[2020-06-11] MEDS: DONEPEZIL HCL 10 MG TAB PO SCH (21:20)
[2020-06-11] MEDS: DOCUSATE SODIUM/SENNA 50/8.6MG TAB PO SCH (21:20)
--- NOTE | 2020-06-11 22:17 | Hospitalist Progress Note ---
Date of Service June 11, 2020 Assessment & Plan (1) Closed fracture of left hip: Scheduled acetaminophen and as needed Dilaudid for pain relief Revised cardiac risk index 0, 3.9% 30 day risk of , [place] or cardiac arrest, likely underestimate given nutritional status and advanced dementia. Patient is medically optimized for surgery at this time. S/P repair. (2) Osteoporosis with fracture: Patient on Prolia as an outpatient. Follows with rheumatology therefore will defer repeating vitamin D level. (3) Vitamin D deficiency: Continue usual supplementation. (4) Hematuria: s/p catheterization, will monitor. (5) Alzheimer's dementia: Continue donepezil 10 mg p.o. at bedtime (6) Hypertension: Continue amlodipine 5 mg p.o. daily (7) Anxiety: Continue Lexapro 7.5 mg p.o. daily (8) DVT prophylaxis: Chemical prophylaxis deferred to orthopedics postoperatively Admission and Anticipated Discharge Date Admission Date: June 09, 2020 Subjective Patient is confused. Review of Systems Review of Systems: All systems reviewed & are unremarkable except as noted in HPI & below Physical Exam Physical Exam: Constitutional: well developed and + frail appearing; no acute distress Eyes: PERRL, conjunctivae normal, anicteric sclerae ENMT: external ear and nose normal, oropharynx normal Neck: trachea midline Respiratory: normal respiratory effort, lungs clear to auscultation Cardiovascular: Rate/Rhythm: regular rate and regular rhythm Heart Sounds: no murmur Extremities: normal capillary refill; no calf tenderness and no pedal edema Gastrointestinal (Abdomen): normal bowel sounds, soft, nontender, no hepatosplenomegaly Musculoskeletal: DP/PT pulses intact. Skin: no rashes, warm and dry Neurologic: awake and + confused Psychiatric: Orientation: alert; Eye Contact: good eye contact Genitourinary: no CVA tenderness Results & Data Results & Data ([facility] [place]) Vital Signs (Past 12 Hours) Vital Signs Temp Pulse Pulse Resp BP Pulse Ox 06/11/20 19:05 36.6 C 89 19 115/68 96 06/11/20 16:28 88 06/11/20 15:00 36.4 C L 85 19 129/73 97 06/11/20 11:14 36.4 C L 82 18 122/74 100 06/11/20 10:39 83 PG Care Time/CCT Total # of Minutes Spent Total Time Spent with Patient: Total time spent is greater than 50% in coord ination of care (as documented) at patient's floor/unit and/or counseling patient: Coding Level of Care Code 77445 Subseq Hosp Care Lvl 2 Diagnoses Closed fracture of left hip S72.002A Encounter type: initial encounter Osteoporosis with fracture M80.80XA Vitamin D deficiency E55.9 Hematuria R31.9 Alzheimer's dementia G30.9; F02.80 Hypertension I10 Anxiety F41.9 DVT prophylaxis Z29.9 Time Spent (min) 25 (1) Closed fracture of left hip Encounter type: initial encounter Qualified Code(s): S72.002A - Fracture of unspecified part of neck of left femur, initial encounter for closed fracture
[2020-06-12] MEDS: HYDROmorphone INJ 0.5 MG/0.5 ML SYR IV PRN ×3 (00:18→19:27)
[2020-06-12] MEDS: NYSTATIN POWDER 15GM BTL EXT SCH ×4 (00:19→22:36)
[2020-06-12] MEDS: ESCITALOPRAM OXALATE 10 MG TAB PO SCH (07:45)
[2020-06-12] MEDS: CHOLECALCIFEROL 1,000 UNITS 25 MCG TAB PO SCH (07:46)
[2020-06-12] MEDS: amLODIPine BESYLATE 5 MG TAB PO SCH (07:46)
[2020-06-12] MEDS: ASPIRIN 81 MG ECTAB PO SCH (07:47)
[2020-06-12] MEDS: CALCIUM 600MG + VIT D 400 IU TAB PO SCH (07:47)
[2020-06-12] MEDS: ENOXAPARIN INJ 30 MG/0.3 ML SYR SQ SCH (07:47)
[2020-06-12] MEDS: ACETAMINOPHEN 500 MG TAB PO SCH ×3 (07:48→19:38)
[2020-06-12] MEDS: SODIUM CHLORIDE 0.9% 1000ML 1,000 ML IV SCH ×3 (09:44→22:35)
--- NOTE | 2020-06-12 11:49 | Progress Notes ---
DATE: 06/12/2020 She is resting comfortably in bed. We will try to get her out of bed to chair today. Total hip precautions. We will try to mobilize her with physical therapy as well. She is on her Lovenox. Her distal neurovascular function is grossly intact. She will wiggle her toes and ankle, but does not comply with a detailed neurovascular exam. Her foot is warm. Capillary refill less than 2 seconds and she has a trace palpable posterior tibial pulse. Her dressing is changed. The wound is benign. There is some minor bruising but no fluid accumulation. No drainage. New dressing applied. She has a little bit of breakdown on her sacral area. She is afebrile. Her vital signs are stable. She has no labs today. PLAN: According to case management is for her to return to [facility] possibly tomorrow. She will need followup with me in my office 2 weeks postsurgery. She may weightbear as tolerated on the left leg, using a walker. She will need PT and OT. She will need an abduction pillow as well. Total hip precautions. She will continue on her Lovenox until further notice.
[2020-06-12 18:32] LABS: Hematocrit (blood only) 29.9 % (37-47); Hemoglobin 9.8 g/dL (12.0-16.0)
[2020-06-12] MEDS: DOCUSATE SODIUM/SENNA 50/8.6MG TAB PO SCH (19:36)
[2020-06-12] MEDS: DONEPEZIL HCL 10 MG TAB PO SCH (19:37)
--- NOTE | 2020-06-12 21:53 | Hospitalist Progress Note ---
Date of Service June 12, 2020 Assessment & Plan (1) Closed fracture of left hip: Scheduled acetaminophen and as needed Dilaudid for pain relief Revised cardiac risk index 0, 3.9% 30 day risk of , [place] or cardiac arrest, likely underestimate given nutritional status and advanced dementia. Patient is medically optimized for surgery at this time. S/P repair. (2) Osteoporosis with fracture: Patient on Prolia as an outpatient. Follows with rheumatology therefore will defer repeating vitamin D level. (3) Acute blood loss anemia: hemoglobin trending down after surgery. No signs of active blood loss will monitor hemoglobin (4) Vitamin D deficiency: Continue usual supplementation. (5) Hematuria: s/p catheterization, will monitor. (6) Alzheimer's dementia: Continue donepezil 10 mg p.o. at bedtime Patient remains confused. (7) Hypertension: Continue amlodipine 5 mg p.o. daily (8) Anxiety: Continue Lexapro 7.5 mg p.o. daily (9) DVT prophylaxis: Chemical prophylaxis deferred to orthopedics postoperatively Admission and Anticipated Discharge Date Admission Date: June 09, 2020 Subjective Updated family. Patient remains confused and is a poor historian. Review of Systems Review of Systems: All systems reviewed & are unremarkable except as noted in HPI & below Physical Exam Physical Exam: Constitutional: well developed and + frail appearing; no acute distress Eyes: PERRL, conjunctivae normal, anicteric sclerae ENMT: external ear and nose normal, oropharynx normal Neck: trachea midline Respiratory: normal respiratory effort, lungs clear to auscultation Cardiovascular: Rate/Rhythm: regular rate and regular rhythm Heart Sounds: no murmur Extremities: normal capillary refill; no calf tenderness and no pedal edema Gastrointestinal (Abdomen): normal bowel sounds, soft, nontender, no hepatosplenomegaly Musculoskeletal: DP/PT pulses intact. Skin: no rashes, warm and dry Neurologic: awake and + confused Psychiatric: Orientation: alert; Eye Contact: good eye contact Genitourinary: no CVA tenderness Results & Data Results & Data ([facility]) Vital Signs (Past 12 Hours) Vital Signs Temp Pulse Pulse Resp BP Pulse Ox 06/12/20 19:28 113 H 20 96/60 L 93 06/12/20 15:42 37.5 C 112 H 20 103/68 96 06/12/20 15:21 112 H 06/12/20 11:14 36.4 C L 91 H 19 130/71 98 PG Care Time/CCT Total # of Minutes Spent Total Time Spent with Patient: Total time spent is greater than 50% in coordination of care (as documented) at patient's floor/unit and/or counseling patient: Coding Level of Care Code 92576 Subseq Hosp Care Lvl 3 Diagnoses Closed fracture of left hip S72.002A Encounter type: initial encounter Osteoporosis with fracture M80.80XA Acute blood loss anemia D62 Vitamin D deficiency E55.9 Hematuria R31.9 Alzheimer's dementia G30.9; F02.80 Hypertension I10 Anxiety F41.9 DVT prophylaxis Z29.9 (1) Closed fracture of left hip Encounter type: initial encounter Qualified Code(s): S72.002A - Fracture of unspecified part of neck of left femur, initial encounter for closed fracture
[2020-06-12 22:59] LABS: Appearance Urine Clear (Clear); Bacteria Urine Automated Negative (Negative); Bilirubin Urine Negative (Negative); Blood Urine 2+ (Negative); Color Urine Yellow; Epithelial Cell Urine Auto 20-30 /lpf (0-5); Glucose Urine UA Negative (Negative); Ketones Urine 2+ (Negative); Leukocyte Esterase Urine Negative (Negative); Nitrite Urine Negative (Negative); Protein Urine Trace (Negative); Urobilinogen Urine Negative (Negative); pH Urine 5.5 (4.5-7.5)
[2020-06-12 23:09] LABS: Amorphous Sediment Urine Present (None Prsent)
[2020-06-13 06:06] LABS: Basophils # (auto) 0.02 K/uL (0-0.2); Basophils % (auto) 0.2 %; Eosinophils # (auto) 0.19 K/uL (0-0.5); Eosinophils % (auto) 1.5 %; Hematocrit (blood only) 27.2 % (37-47); Hemoglobin 8.8 g/dL (12.0-16.0); Immature Granulocytes # (auto) 0.03 K/uL (0.00-0.02); Immature Granulocytes % (auto) 0.2 %; Lymphocytes % (auto) 18.3 %; Mean Corpuscular Hemoglobin 32.4 pg (25-34); Mean Corpuscular Hgb Conc 32.4 g/dL (32-36); Mean Platelet Volume 9.9 fL (7.4-10.4); Monocytes # (auto) 1.26 K/uL (0.11-0.59); Neutrophils # (auto) 8.74 K/uL (1.4-6.5); Neutrophils % (auto) 69.8 %; Platelet Count 242 K/uL (130-400); RDW Coefficient of Variation 13.7 % (11.5-14.5); RDW Standard Deviation 49.5 fL (36.4-46.3); Red Blood Count 2.72 M/uL (4.2-5.4); White Blood Count 12.54 K/uL (4.8-10.8)
[2020-06-13 06:51] LABS: BUN Creatinine Ratio 46.8 (10-20); Creatinine Clr Calc Pharmacy 102.4 ml/min; Est GFR (African American) 118.5; Est GFR (Non-African American) 102.2; Potassium 3.6 mmol/L (3.5-5.1)
[2020-06-13] MEDS: CALCIUM 600MG + VIT D 400 IU TAB PO SCH (08:14)
[2020-06-13] MEDS: amLODIPine BESYLATE 5 MG TAB PO SCH (08:15)
[2020-06-13] MEDS: CHOLECALCIFEROL 1,000 UNITS 25 MCG TAB PO SCH (08:15)
[2020-06-13] MEDS: ENOXAPARIN INJ 30 MG/0.3 ML SYR SQ SCH (08:15)
[2020-06-13] MEDS: ESCITALOPRAM OXALATE 10 MG TAB PO SCH (08:15)
[2020-06-13] MEDS: ACETAMINOPHEN 500 MG TAB PO SCH ×3 (08:16→19:36)
[2020-06-13] MEDS: ASPIRIN 81 MG ECTAB PO SCH (08:16)
[2020-06-13] MEDS: HYDROmorphone INJ 0.5 MG/0.5 ML SYR IV PRN (08:28)
[2020-06-13] MEDS: NYSTATIN POWDER 15GM BTL EXT SCH ×2 (08:30→16:00)
--- NOTE | 2020-06-13 11:52 | Orthopedic Progress Note ---
Date of Service June 13, 2020 Assessment & Plan (1) Status post hip hemiarthroplasty: POD #3 Acute post-op anemia. Hgb dropped to 8.8 today. Recommend repeating in am. Continue to follow. Patient asymptomatic. Continue PT/OT, WBAT L LE with walker, SHP, hip abduction pillow at all times Pain control with p.o. medication, tramadol ordered Continue DVT prophylaxis with SQ Lovenox, SCDs Primary care per medicine service DC planning, likely SNF We will continue to follow orthopedically while inpatient Recommend follow-up 2wks post-op with Dr Lyons at office Admission and Anticipated Discharge Date Admission Date: June 09, [address] Lyons. Patient sitting up in bed. Pain at rest is controlled. Peer nurse no po narcotic ordered. Hasnt had PT yet today. Eating po diet. Urine cathater in place. Good appetite. Denies f,c,s, CP, SOB, light headedness, or dizziness. Seem mildy confused. Says doesnt like to be left alone. Physical Exam Physical Exam: Resting in bed. No abd pillow bw legs. Left hip dressing intact. Surrounding skin wnl. NV intact B LE. Able to wiggle toes and ankles. Palpable DP and PT pulses. Sensation is intact to light touch. Calves are soft. Neg homans. Mild discomfort with log rolling left hip. Results & Data ([facility]) Vital Signs (Past 12 Hours) Vital Signs Temp Pulse Resp BP Pulse Ox 06/13/20 08:35 36.4 C L 119 H 20 119/75 91 06/13/20 06:10 36.7 C 109 H 18 130/79 93 06/13/20 04:37 36.8 C 85 18 160/90 H 96 Laboratory Results 06/13/20 06/13/20 06/12/20 Range/Units 05:34 05:34 22:25 WBC 12.54 H (4.8-10.8) K/uL RBC 2.72 L (4.2-5.4) M/uL Hgb 8.8 L (12.0-16.0) g/dL Hct 27.2 L (37-47) % MCV 100.0 (80-100) fL MCH 32.4 (25-34) pg MCHC 32.4 (32-36) g/dL RDW Std Deviation 49.5 H (36.4-46.3) fL RDW Coeff of [place] 13.7 (11.5-14.5) % Plt Count 242 (130-400) K/uL MPV 9.9 (7.4-10.4) fL Immature Gran % (Auto) 0.2 % Neut % (Auto) 69.8 % Lymph % (Auto) 18.3 % [place] % (Auto) 10.0 % Eos % (Auto) 1.5 % Baso % (Auto) 0.2 % Neut # (Auto) 8.74 H (1.4-6.5) K/uL Lymph # (Auto) 2.30 (1.2-3.4) K/uL [place] # (Auto) 1.26 H (0.11-0.59) K/uL Eos # (Auto) 0.19 (0-0.5) K/uL Baso # (Auto) 0.02 (0-0.2) K/uL Immature Gran # (Auto) 0.03 H (0.00-0.02) K/uL Sodium 142 (136-145) mmol/L Potassium 3.6 (3.5-5.1) mmol/L Chloride 110 H (98-107) mmol/L Carbon Dioxide 26 (21-32) mmol/L Anion Gap 6.0 (3-11) BUN 15 (7-18) mg/dl Creatinine 0.32 L D (0.6-1.2) mg/dl Est Cr Clr Drug Dosing 102.4 ml/min Est GFR ( Amer) 118.5 Est GFR (Non-Af Amer) 102.2 BUN/Creatinine Ratio 46.8 H (10-20) Glucose 100 H (70-99) mg/dl Calcium 8.0 L (8.5-10.1) mg/dl Urine Color Yellow Urine Appearance Clear (Clear) Urine pH 5.5 (4.5-7.5) Ur Specific [place] 1.030 (1.000-1.030) Urine Protein Trace H (Negative) Urine Glucose (UA) Negative (Negative) Urine Ketones 2+ H (Negative) Urine Blood 2+ H (Negative) Urine Nitrite Negative (Negative) Urine Bilirubin Negative (Negative) Urine Urobilinogen Negative (Negative) Ur Leukocyte Esterase Negative (Negative) Urine WBC (Auto) 1-5 (0-5) /hpf Urine RBC (Auto) 10-30 H (0-4) /hpf U Hyaline Cast (Auto) 10-30 H (0-5) /lpf U Epithel Cells (Auto) 20-30 H (0-5) /lpf Urine Bacteria (Auto) Negative (Negative) Amorphous Sediment Present A (None Prsent) Urine Yeast Not Reportable 06/12/20 Range/Units 18:13 WBC (4.8-10.8) K/uL RBC (4.2-5.4) M/uL Hgb 9.8 L (12.0-16.0) g/dL Hct 29.9 L (37-47) % MCV (80-100) fL MCH (25-34) pg MCHC (32-36) g/dL RDW Std Deviation (36.4-46.3) fL RDW Coeff of [place] (11.5-14.5) % Plt Count (130-400) K/uL MPV (7.4-10.4) fL Immature Gran % (Auto) % Neut % (Auto) % Lymph % (Auto) % [place] % (Auto) % Eos % (Auto) % Baso % (Auto) % Neut # (Auto) (1.4-6.5) K/uL Lymph # (Auto) (1.2-3.4) K/uL [place] # (Auto) (0.11-0.59) K/uL Eos # (Auto) (0-0.5) K/uL Baso # (Auto) (0-0.2) K/uL Immature Gran # (Auto) (0.00-0.02) K/uL Sodium (136-145) mmol/L Potassium (3.5-5.1) mmol/L Chloride (98-107) mmol/L Carbon Dioxide (21-32) mmol/L Anion Gap (3-11) BUN (7-18) mg/dl Creatinine (0.6-1.2) mg/dl Est Cr Clr Drug Dosing ml/min Est GFR ( Amer) Est GFR (Non-Af Amer) BUN/Creatinine Ratio (10-20) Glucose (70-99) mg/dl Calcium (8.5-10.1) mg/dl Urine Color Urine Appearance (Clear) Urine pH (4.5-7.5) Ur Specific [place] (1.000-1.030) Urine Protein (Negative) Urine Glucose (UA) (Negative) Urine Ketones (Negative) Urine Blood (Negative) Urine Nitrite (Negative) Urine Bilirubin (Negative) Urine Urobilinogen (Negative) Ur Leukocyte Esterase (Negative) Urine WBC (Auto) (0-5) /hpf Urine RBC (Auto) (0-4) /hpf U Hyaline Cast (Auto) (0-5) /lpf U Epithel Cells (Auto) (0-5) /lpf Urine Bacteria (Auto) (Negative) Amorphous Sediment (None Prsent) Urine Yeast
--- NOTE | 2020-06-13 12:40 | Hospitalist Progress Note ---
Date of Service June 13, 2020 Assessment & Plan (1) Closed fracture of left hip: S/p Left Hip Saman Arthroplasty with Dr. Lyons on 06/10. - Continue acetaminophen and oxycodone PRN - Lovenox for DVT prophylaxis as per orthopedics team (2) Acute blood loss anemia: Hemoglobin trending down after surgery. - Hgb down to 8.8 on 06/13. - Give IV iron x 2 doses. (3) Osteoporosis with fracture: Patient on Prolia as an outpatient. Follows with rheumatology therefore will defer repeating vitamin D level. (4) Hypertension: BP is around 120/75. - Continue amlodipine 5 mg p.o. daily (5) Vitamin D deficiency: - Continue usual supplementation. (6) Hematuria: After bladder catheterization. - Monitor (7) Alzheimer's dementia: Patient remains confused, but I am unclear of her baseline. - Continue donepezil 10 mg p.o. at bedtime - Will discuss with family (8) Anxiety: Some anxious affect today. - Continue Lexapro 7.5 mg p.o. daily (9) DVT prophylaxis: Lovenox per orthopedic. Admission and Anticipated Discharge Date Admission Date: June 09, 2020 Subjective Somewhat dispirited today. She reports that she was left in her room for 2 days and not fed or visited at all. She then reports that her mother called her and was very upset and was crying. Reports no fevers/chills, chest pain, shortness of breath, abdominal pain, nausea, or vomiting. Physical Exam 2 Constitutional: WD/WN, vitals as above + frail appearing and + in distress Eyes: EOM intact bilaterally; no conjunctival abnormality ENMT: external ear and nose normal, oropharynx normal Neck: trachea midline, no thyromegaly normal visual inspection Respiratory: normal respiratory effort, lungs clear to auscultation no respiratory distress Cardiovascular: RRR, no murmur, no edema Gastrointestinal (Abdomen): Inspection/Auscultation: abdomen normal to inspection; abdomen not distended Musculoskeletal: no cyanosis or clubbing, extremities motor strength 5/5 Skin: no rashes, warm and dry Neurologic: moves all extremities and awake Psychiatric: Orientation: alert, oriented to person and cooperative Results & Data Results & Data ([facility]) Vital Signs (Past 12 Hours) Vital Signs Temp Pulse Resp BP Pulse Ox 06/13/20 08:35 36.4 C L 119 H 20 119/75 91 06/13/20 06:10 36.7 C 109 H 18 130/79 93 06/13/20 04:37 36.8 C 85 18 160/90 H 96 PG Care Time/CCT Total # of Minutes Spent Total Time Spent with Patient: Total time spent is greater than 50% in coordination of care (as documented) at patient's floor/unit and/or counseling patient: Coding Level of Care Code 25881 Subseq Hosp Care Lvl 2 Diagnoses Closed fracture of left hip S72.002A Encounter type: initial encounter Acute blood loss anemia D62 Osteoporosis with fracture M80.80XA Hypertension I10 Vitamin D deficiency E55.9 Hematuria R31.9 Alzheimer's dementia G30.9; F02.80 Anxiety F41.9 DVT prophylaxis Z29.9 (1) Closed fracture of left hip Encounter type: initial encounter Qualified Code(s): S72.002A - Fracture of unspecified part of neck of left femur, initial encounter for closed fracture
[2020-06-13] MEDS: IRON SUCROSE 300 MG in SODIUM CHLORIDE 0.9% 250 ML IV SCH (14:04)
[2020-06-13] MEDS: traMADol HCL 50 MG TABLET PO PRN (14:10)
[2020-06-13] MEDS: DOCUSATE SODIUM/SENNA 50/8.6MG TAB PO SCH (19:36)
[2020-06-13] MEDS: DONEPEZIL HCL 10 MG TAB PO SCH (19:36)
[2020-06-14] MEDS: NYSTATIN POWDER 15GM BTL EXT SCH ×4 (00:35→16:31)
[2020-06-14 06:49] LABS: Basophils # (auto) 0.03 K/uL (0-0.2); Basophils % (auto) 0.3 %; Eosinophils # (auto) 0.46 K/uL (0-0.5); Eosinophils % (auto) 3.8 %; Hematocrit (blood only) 28.4 % (37-47); Hemoglobin 9.2 g/dL (12.0-16.0); Immature Granulocytes # (auto) 0.04 K/uL (0.00-0.02); Immature Granulocytes % (auto) 0.3 %; Lymphocytes # (auto) 2.43 K/uL (1.2-3.4); Lymphocytes % (auto) 20.3 %; Mean Corpuscular Hemoglobin 32.5 pg (25-34); Mean Corpuscular Hgb Conc 32.4 g/dL (32-36); Mean Corpuscular Volume 100.4 fL (80-100); Mean Platelet Volume 9.5 fL (7.4-10.4); Monocytes # (auto) 1.16 K/uL (0.11-0.59); Monocytes % (auto) 9.7 %; Neutrophils # (auto) 7.83 K/uL (1.4-6.5); Neutrophils % (auto) 65.6 %; Platelet Count 276 K/uL (130-400); RDW Coefficient of Variation 13.7 % (11.5-14.5); RDW Standard Deviation 49.9 fL (36.4-46.3); Red Blood Count 2.83 M/uL (4.2-5.4); White Blood Count 11.95 K/uL (4.8-10.8)
[2020-06-14 07:21] LABS: BUN Creatinine Ratio 33.8 (10-20); Calcium 8.5 mg/dl (8.5-10.1); Creatinine Clr Calc Pharmacy 107.2 ml/min; Est GFR (African American) 119.7; Est GFR (Non-African American) 103.3; Potassium 3.1 mmol/L (3.5-5.1)
[2020-06-14] MEDS: ESCITALOPRAM OXALATE 10 MG TAB PO SCH (07:36)
[2020-06-14] MEDS: ACETAMINOPHEN 500 MG TAB PO SCH ×3 (07:36→21:32)
[2020-06-14] MEDS: CALCIUM 600MG + VIT D 400 IU TAB PO SCH (07:37)
[2020-06-14] MEDS: CHOLECALCIFEROL 1,000 UNITS 25 MCG TAB PO SCH (07:37)
[2020-06-14] MEDS: amLODIPine BESYLATE 5 MG TAB PO SCH (07:37)
[2020-06-14] MEDS: ASPIRIN 81 MG ECTAB PO SCH (07:37)
[2020-06-14] MEDS: ENOXAPARIN INJ 30 MG/0.3 ML SYR SQ SCH (07:37)
[2020-06-14] MEDS: IRON SUCROSE 300 MG in SODIUM CHLORIDE 0.9% 250 ML IV SCH (08:36)
[2020-06-14] MEDS: traMADol HCL 50 MG TABLET PO PRN ×2 (08:39→16:31)
[2020-06-14] MEDS ORDERED: POTASSIUM CHLORIDE CRTAB 20 MEQ TABCR PO STA (09:59)
--- NOTE | 2020-06-14 10:18 | Orthopedic Progress Note ---
Date of Service June 14, 2020 Assessment & Plan (1) Status post hip hemiarthroplasty: POD #3 Acute post-op anemia. Receiving Iron x 2 doses ordered by Medicine. R Continue PT/OT, WBAT L LE with walker, SHP, hip abduction pillow at all times Pain control with p.o. medication, tramadol ordered Continue DVT prophylaxis with SQ Lovenox, SCDs Dressing changed to ABD and tegaderm. Primary care per medicine service DC planning, likely SNF We will continue to follow orthopedically while inpatient Recommend follow-up 2wks post-op with Dr Lyons at office Admission and Anticipated Discharge Date Admission Date: June 09, 2020 Subjective Feeling down today. Says shes tired. She says shes lonely and misses her family. She has no pain at rest. Was temperamental with Dr Lyons. Denies fevers/chills, chest pain, shortness of breath, abdominal pain, nausea, or vomiting. Physical Exam Physical Exam: Resting in bed. No abd pillow bw legs. Left hip dressing intact. Upon removal, dressings dry. [place] intact. Surrounding skin wnl. NV intact B LE. Able to wiggle toes and ankles. Palpable DP and PT pulses. Sensation is intact to light touch. Calves are soft. Neg homans. Discomfort with log rolling left hip. Results & Data ([facility]) Vital Signs (Past 12 Hours) Vital Signs Temp Pulse Resp BP Pulse Ox 06/14/20 08:11 36.9 C 89 18 160/81 H 97 06/14/20 02:45 36.6 C 82 18 160/89 H 92 Laboratory Results 06/14/20 06/14/20 Range/Units 06:09 06:09 WBC 11.95 H (4.8-10.8) K/uL RBC 2.83 L (4.2-5.4) M/uL Hgb 9.2 L (12.0-16.0) g/dL Hct 28.4 L (37-47) % MCV 100.4 H (80-100) fL MCH 32.5 (25-34) pg MCHC 32.4 (32-36) g/dL RDW Std Deviation 49.9 H (36.4-46.3) fL RDW Coeff of [place] 13.7 (11.5-14.5) % Plt Count 276 (130-400) K/uL MPV 9.5 (7.4-10.4) fL Immature Gran % (Auto) 0.3 % Neut % (Auto) 65.6 % Lymph % (Auto) 20.3 % [place] % (Auto) 9.7 % Eos % (Auto) 3.8 % Baso % (Auto) 0.3 % Neut # (Auto) 7.83 H (1.4-6.5) K/uL Lymph # (Auto) 2.43 (1.2-3.4) K/uL [place] # (Auto) 1.16 H (0.11-0.59) K/uL Eos # (Auto) 0.46 (0-0.5) K/uL Baso # (Auto) 0.03 (0-0.2) K/uL Immature Gran # (Auto) 0.04 H (0.00-0.02) K/uL Sodium 141 (136-145) mmol/L Potassium 3.1 L (3.5-5.1) mmol/L Chloride 107 (98-107) mmol/L Carbon Dioxide 29 (21-32) mmol/L Anion Gap 6.0 (3-11) BUN 10 D (7-18) mg/dl Creatinine 0.31 L (0.6-1.2) mg/dl Est Cr Clr Drug Dosing 107.2 ml/min Est GFR ( Amer) 119.7 Est GFR (Non-Af Amer) 103.3 BUN/Creatinine Ratio 33.8 H (10-20) Glucose 89 (70-99) mg/dl Calcium 8.5 (8.5-10.1) mg/dl
--- NOTE | 2020-06-14 16:10 | Hospitalist Progress Note ---
Date of Service June 14, 2020 Assessment & Plan (1) Closed fracture of left hip: S/p Left Hip Saman Arthroplasty with Dr. Lyons on 06/10. - Continue acetaminophen scheduled and tramadol PRN; will dc ibuprofen prn - Lovenox for DVT prophylaxis as per orthopedics team -needs rehab placement -bowel regimen continues-no BM in 2 days (2) Acute blood loss anemia: Hemoglobin trending down after surgery. - Hgb down to 8.8 on 06/13 and now back up to 9.2 -received IV iron x 2 doses. MCV is macrocytic follow CBC, B12, folate, TSH in AM (3) Osteoporosis with fracture: Patient on Prolia as an outpatient. Follows with rheumatology therefore will defer repeating vitamin D level. (4) Hypertension: BP stable - Continue amlodipine 5 mg p.o. daily (5) Vitamin D deficiency: - Continue usual supplementation. (6) Hematuria: After bladder catheterization. - Monitor-no recurrence Perez in place--> need to remove prior to discharge once up and about more often (7) Alzheimer's dementia: - Continue donepezil 10 mg p.o. at bedtime - as per d/w previous hospitalist, her behavior here is her baseline (8) Anxiety: Some anxious affect intermittently - Continue Lexapro 7.5 mg p.o. daily (9) Hypokalemia: replace with KCl po follow BMP in AM encourage po intake (10) Leukocytosis: improving, likely secondary to stress response from surgery (11) DVT prophylaxis: Lovenox per orthopedic. Dispo-continued stay, dc to SNF tomorrow is earliest she can be accepted Admission and Anticipated Discharge Date Admission Date: June 09, 2020 Subjective RN reports pt having a good day, is eating/drinking, was out of bed to chair x 2.5 hours. Pt reports to me "I'm just taking the day off." Denies pain in hip, denies any other problems. Tele with NSR, PACs, rates 70-90s, small burst AT Review of Systems Review of Systems: All systems reviewed & are unremarkable except as noted in HPI & below Physical Exam Constitutional: WD/WN, vitals as above Eyes: + anicteric sclerae Neck: trachea midline, no thyromegaly Respiratory: normal respiratory effort Auscultation: + crackles (at bases bilat); no rhonchi and no wheezes Cardiovascular: RRR, no murmur, no edema Chest (Breasts): Chest: normal inspection of chest Gastrointestinal (Abdomen): normal bowel sounds, soft, nontender, no hepatosplenomegaly Musculoskeletal: Extremities: + extremities abnormal to inspection (left hip w/ dresing c/d/i), no cyanosis and no clubbing Skin: no rashes, warm and dry Neurologic: moves all extremities and awake; no focal motor deficits Psychiatric: Orientation: alert, oriented to person and cooperative Affect: euthymic affect Cognition: + recent memory not intact Lymphatic: no lymphedema Results & Data Results & Data ([facility]) Vital Signs (Past 12 Hours) Vital Signs Temp Pulse Pulse Resp BP Pulse Ox 06/14/20 14:42 36.9 C 81 20 103/66 94 06/14/20 11:50 83 06/14/20 11:19 36.4 C L 84 20 128/79 99 06/14/20 08:11 36.9 C 89 18 160/81 H 97 Laboratory Results 06/14/20 06/14/20 Range/Units 06:09 06:09 WBC 11.95 H (4.8-10.8) K/uL RBC 2.83 L (4.2-5.4) M/uL Hgb 9.2 L (12.0-16.0) g/dL Hct 28.4 L (37-47) % MCV 100.4 H (80-100) fL MCH 32.5 (25-34) pg MCHC 32.4 (32-36) g/dL RDW Std Deviation 49.9 H (36.4-46.3) fL RDW Coeff of [place] 13.7 (11.5-14.5) % Plt Count 276 (130-400) K/uL MPV 9.5 (7.4-10.4) fL Immature Gran % (Auto) 0.3 % Neut % (Auto) 65.6 % Lymph % (Auto) 20.3 % [place] % (Auto) 9.7 % Eos % (Auto) 3.8 % Baso % (Auto) 0.3 % Neut # (Auto) 7.83 H (1.4-6.5) K/uL Lymph # (Auto) 2.43 (1.2-3.4) K/uL [place] # (Auto) 1.16 H (0.11-0.59) K/uL Eos # (Auto) 0.46 (0-0.5) K/uL Baso # (Auto) 0.03 (0-0.2) K/uL Immature Gran # (Auto) 0.04 H (0.00-0.02) K/uL Sodium 141 (136-145) mmol/L Potassium 3.1 L (3.5-5.1) mmol/L Chloride 107 (98-107) mmol/L Carbon Dioxide 29 (21-32) mmol/L Anion Gap 6.0 (3-11) BUN 10 D (7-18) mg/dl Creatinine 0.31 L (0.6-1.2) mg/dl Est Cr Clr Drug Dosing 107.2 ml/min Est GFR ( Amer) 119.7 Est GFR (Non-Af Amer) 103.3 BUN/Creatinine Ratio 33.8 H (10-20) Glucose 89 (70-99) mg/dl Calcium 8.5 (8.5-10.1) mg/dl PG Care Time/CCT Total # of Minutes Spent Total Time Spent with Patient: Total time spent is greater than 50% in coordination of care (as documented) at patient's floor/unit and/or counseling patient: Coding Level of Care Code 57446 Subseq Hosp Care Lvl 2 Diagnoses Closed fracture of left hip S72.002A Encounter type: initial encounter Acute blood loss anemia D62 Osteoporosis with fracture M80.80XA Hypertension I10 Vitamin D deficiency E55.9 Hematuria R31.9 Alzheimer's dementia G30.9; F02.80 Anxiety F41.9 Hypokalemia E87.6 Leukocytosis D72.829 DVT prophylaxis Z29.9 (1) Closed fracture of left hip Encounter type: initial encounter Qualified Code(s): S72.002A - Fracture of unspecified part of neck of left femur, initial encounter for closed fracture
[2020-06-14] MEDS: DOCUSATE SODIUM/SENNA 50/8.6MG TAB PO SCH (21:32)
[2020-06-14] MEDS: DONEPEZIL HCL 10 MG TAB PO SCH (21:32)
[2020-06-15] MEDS: NYSTATIN POWDER 15GM BTL EXT SCH ×2 (01:04→08:47)
[2020-06-15 06:10] LABS: Basophils # (auto) 0.05 K/uL (0-0.2); Basophils % (auto) 0.4 %; Eosinophils # (auto) 0.51 K/uL (0-0.5); Eosinophils % (auto) 4.4 %; Hemoglobin 9.5 g/dL (12.0-16.0); Immature Granulocytes # (auto) 0.03 K/uL (0.00-0.02); Immature Granulocytes % (auto) 0.3 %; Lymphocytes # (auto) 2.81 K/uL (1.2-3.4); Mean Corpuscular Hgb Conc 32.8 g/dL (32-36); Mean Corpuscular Volume 100.7 fL (80-100); Mean Platelet Volume 9.2 fL (7.4-10.4); Monocytes # (auto) 1.19 K/uL (0.11-0.59); Monocytes % (auto) 10.2 %; Neutrophils # (auto) 7.12 K/uL (1.4-6.5); Neutrophils % (auto) 60.7 %; Platelet Count 311 K/uL (130-400); RDW Coefficient of Variation 13.9 % (11.5-14.5); RDW Standard Deviation 50.1 fL (36.4-46.3); Red Blood Count 2.88 M/uL (4.2-5.4); White Blood Count 11.71 K/uL (4.8-10.8)
[2020-06-15 06:52] LABS: BUN Creatinine Ratio 46.4 (10-20); Calcium 8.4 mg/dl (8.5-10.1); Creatinine Clr Calc Pharmacy 118.7 ml/min; Est GFR (African American) 123.8; Est GFR (Non-African American) 106.8; Potassium 3.6 mmol/L (3.5-5.1)
[2020-06-15 06:55] LABS: Folate (Folic Acid) 4.7 ng/ml (>5.38)
[2020-06-15 06:56] LABS: Thyroid Stimulating Hormone 3.15 uIu/ml (0.300-4.500)
[2020-06-15] MEDS: CALCIUM 600MG + VIT D 400 IU TAB PO SCH (08:48)
[2020-06-15] MEDS: ENOXAPARIN INJ 30 MG/0.3 ML SYR SQ SCH (08:48)
[2020-06-15] MEDS: ESCITALOPRAM OXALATE 10 MG TAB PO SCH (08:48)
[2020-06-15] MEDS: amLODIPine BESYLATE 5 MG TAB PO SCH (08:49)
[2020-06-15] MEDS: ASPIRIN 81 MG ECTAB PO SCH (08:49)
[2020-06-15] MEDS: ACETAMINOPHEN 500 MG TAB PO SCH (08:49)
[2020-06-15] MEDS: CHOLECALCIFEROL 1,000 UNITS 25 MCG TAB PO SCH (08:50)
[2020-06-15] MEDS ORDERED: CYANOCOBALAMIN 1000 MCG/ML VIAL IM ONE (09:36)
[2020-06-15] MEDS ORDERED: FOLIC ACID 1 MG TAB PO SCH (09:45)
--- NOTE | 2020-06-15 10:41 | Discharge Summary ---
Date of Service June 15, 2020 Admission HPI Per Admitting Provider Lizeth Stoddard is an 84-year-old female with osteoporosis and Alzheimer's dementia from the memory unit at [facility] who presents to the ER with a left hip fracture after a fall last night. Reportedly another resident fell into her and she landed on her left side. Hip x-ray at the facility this morning confirmed a hip fracture and therefore she was sent to the emergency room. Unable to get any history from the patient due to her dementia. In the ER x-ray confirmed acute displaced left femoral neck fracture. She was referred to medicine for admission and ongoing management. I discussed her care with power of privacy attorney, her daughter, Emilia Nunez. Patient is DNR/DNI. Principal Diagnosis Left hip fracture Discharge Exam Constitutional WD/WN, vitals as above Eyes + anicteric sclerae Neck trachea midline, no thyromegaly Respiratory normal respiratory effort, lungs clear to auscultation Cardiovascular RRR, no murmur, no edema Chest (Breasts) Chest: normal inspection of chest Gastrointestinal (Abdomen) normal bowel sounds, soft, nontender, no hepatosplenomegaly Musculoskeletal Extremities: + extremities abnormal to inspection (left hip w/ dresing c/d/i), no cyanosis and no clubbing Skin no rashes, warm and dry Neurologic moves all extremities and awake; no focal motor deficits Psychiatric Orientation: alert, oriented to person and cooperative Affect: euthymic affect Cognition: + recent memory not intact Lymphatic no lymphedema Discharge Data Allergies Allergy/AdvReac Type Severity Reaction Status Date / Time SHO Inhibitors Allergy Mild unknown Unverified 06/09/20 13:14 alendronate sodium Allergy Mild unknown Unverified 04/14/19 14:50 amoxicillin Allergy Mild unknown Unverified 04/14/19 14:50 capsaicin Allergy Mild unknown Unverified 04/14/19 14:50 clavulanic acid Allergy Mild unknown Unverified 04/14/19 14:50 diclofenac Allergy Mild unknown Unverified 04/14/19 14:50 Diclopak Allergy Mild unknown Unverified 05/10/17 18:33 pravastatin Allergy Mild unknown Unverified 06/09/20 13:14 rosuvastatin Allergy Mild unknown Unverified 06/09/20 13:14 Gjnejtn-Zed-Hra Reductase Allergy Mild unknown Unverified 06/09/20 13:14 Inhibitor ezetimibe Allergy Unknown unknown Unverified 04/14/19 14:50 metronidazole [From Flagyl] Allergy Verified 08/06/19 11:18 Consultations 06/09/20 13:30 ED Decision to Admit Stat 06/09/20 13:55 Consult Orthopedic Surgery Routine 06/09/20 15:16 Consult Case Management - Discharge Planning Routine 06/10/20 18:08 Consult Case Management - Discharge Planning Routine Procedures Performed Operation Date: 06/10/20 09:20 Actual Procedures p Left Hip Saman Arthroplasty(Left) - Zacarias Lyons MD Ordered Studies Hip x-ray x2 Chest x-ray Hospital Course (1) Closed fracture of left hip: S/p Left Hip Saman Arthroplasty with Dr. Lyons on 06/10. - Continue acetaminophen scheduled for pain - Lovenox for DVT prophylaxis as per orthopedics [id number] will prescribe enough to complete 3-week course -needs rehab placement today -bowel regimen continues with senna/docusate 2 tabs at bedtime (2) Acute blood loss anemia: Hemoglobin trended down after surgery. - Hgb down to 8.8 on 06/13 and now back up to 9.5 -received IV iron x 2 doses. MCV is macrocytic B12 borderline low at 330, folate low at 4, TSH normal -Added folic acid 1 mg p.o. once daily Added vitamin B12 1000 mcg IM x1 here now and then continue on 500 mcg p.o. once daily (3) Osteoporosis with fracture: Patient on Prolia as an outpatient. Follows with rheumatology therefore will defer repeating vitamin D level. Continue calcium and vitamin D supplementation (4) Hypertension: BP stable - Continue amlodipine 5 mg p.o. daily (5) Vitamin D deficiency: - Continue usual supplementation. (6) Hematuria: After bladder catheterization. - Monitor-no recurrence Perez in place-->remove prior to discharge (7) Alzheimer's dementia: - Continue donepezil 10 mg p.o. at bedtime - as per d/w previous hospitalist, her behavior here is her baseline (8) Anxiety: Some anxious affect intermittently - Continue Lexapro 7.5 mg p.o. daily (9) Hypokalemia: Replaced and resolved (10) Leukocytosis: improving, likely secondary to stress response from surgery (11) Vitamin B12 deficiency anemia: As above Continue supplementation (12) Folic acid deficiency anemia: As above Continue supplementation which was started here (13) DVT prophylaxis: Lovenox per orthopedic. Dispo-stable for discharge to SNF at [facility] Total Time Total Time Spent Total Time Spent (In Minutes): 35 minutes Total Time Includes: Examination of the Patient, Discharge Planning and Medication Reconciliation Discharge Plan Discharge Items Patient Disposition: Transfer [facility] Reason For Visit: LEFT HIP FRACTURE Discharge Diagnosis: Left hip fracture Condition on Discharge: Good Activity: As commented below Weightbearing: Left weightbearing Weightbearing Comment: with assistance of a walker Non-emergency contact: Primary Care Provider and Surgeon Call non-emergency contact if: your pain is not controlled, your temperature is above 101, your wound has increased redness, your wound has increased drainage and your wound pain has increased Follow-up/Referrals: Zacarias Lyons MD [Surgeon] - 06/28/20 1[facility] [place] [facility] - (Please follow-up within 1 week) Diet: Regular Addtl Attending Provider Instructions: You were found to have folate and vitamin B12 deficiency anemia-please continue on the supplements. Otherwise instructions as per orthopedics. Addtl Hog Pusher Provider Instructions: Pain: * The immediate post-operative period after hip replacement surgery is often quite painful. * You are given a prescription for pain medicine. You should take it, as directed, when you need it, especially before physical therapy and before going to bed. Pain that interferes with sleep is very common and can last several months. * You will likely need pain medicine for the first two to four weeks. It will not stop all of the pain. The pain will lessen and as you feel better, you may change to milder pain medicine such as Tylenol. * The most common side effects of pain medicine are nausea and constipation, so don't take more than you need. Physical Therapy: * Follow the "Hip Precautions Instructions." * In some cases, the clinical social worker at the hospital will arrange to have a therapist come to your house for the first couple of weeks to help you learn these skills. * You need to practice on your own or with the help of a family member as needed. * When you learn these skills, most of the therapy can be done on your own. Home Exercise: * You were shown a series of exercises in the hospital. Do these exercises three to four times each day including the exercises you were shown in physical therapy. Walking: * Get up and walk several times each day. For the first four weeks, try not to stand or walk for more than one hour at a time. If you do stand or walk for more than one hour, you will not hurt anything, but your leg will likely swell. * As you feel comfortable, you may change from the walker or crutches to a cane and then to independent walking. SELF CARE INSTRUCTIONS AFTER TOTAL HIP REPLACEMENT Until the incision and soft tissues around your hip have healed, there is a possibility that the hip prosthesis could dislocate. A. Observe the following precautions to prevent dislocation: 1. Don't bend your hip greater than 90 degrees. 2. Avoid crossing your legs or ankles while standing or lying. 3. Sit with your feet placed 6 inches apart. 4. When sitting, keep your knees below your hips. Sit on a firm surface, avoid deep, soft chairs and couches. Use an elevated toilet seat in the bathroom. 5. Don't bend over at the waist. Use a long handled shoehorn and a sock aid to help you put on your shoes and socks. A square shear operator can help you cook pickled meat objects that are too high or too low to reach. 6. Keep car riding to a minimum for at least one month after surgery. B. Your balance may be shaky for a while. Use crutches or a walker until directed by your doctor. C. Use hand rails when walking on stairs. D. Wear low heeled shoes with non-slip soles. E. Be sure that your floors are free of things that could trip you - throw rugs, electrical cords, small objects. Avoid wet and waxed floors, especially with crutches and canes. F. Try to walk several times a day with rest periods between. G. Continue with all the exercises taught to you in the hospital. Again, make walking a part of your daily routine. VERY IMPORTANT TO READ AND REVIEW A. Take Lovenox (blood thinning medications) as directed by your doctor. B. There are a few signs you need to watch for after you are home. If you notice any of the followin. Increased severe hip pain. Some pain is expected especially when you exercise. 2. Increased swelling in your leg or knee; pain or swelling of the calf muscle in either lower leg. 3. Any fluid drainage from the incision. 4. Shortness of breath or chest pain. TEDs/Elastic Stockings: * The white elastic stockings help limit swelling and prevent blood clots from forming in your legs. The more you wear them, the more they work. * Wear them for six weeks. Prevention of Infection: * Take antibiotics one hour before any dental cleaning, dental work, urological procedure, gastrointestinal procedure or any invasive surgery in order to prevent your new joint from getting infected. * You may get the antibiotics from the doctor performing the procedure or we will call in a prescription to the pharmacy of your choice. Call the office for a prescription at least 2 days prior to your appointment. Things to Watch For: * Drainage from the incision site that occurs more than one week after your surgery. * Severely increased leg pain or swelling. * Increased redness at the incision site. * Fever above 101 degrees Fahrenheit. * Unusual chest pain or shortness of breath. * Unusual pain or burning with urination. Dressings to left hip at all times. Change dressings daily and/or as needed Okay to shower and get incision wet, redress with light dressing or put on waterproof dressing. Ice to left hip as needed for pain/swelling. Posterior hip precautions left hip at all times. Use abduction pillow when in bed and when sitting in chair. Use walker to assist with ambulation. Pending Studies at Discharge: No Stand-Alone Forms: [facility] Skilled Items Patient informed of condition?: Yes DNR: Yes Discharge Level of Care: Skilled Communicable Disease: No Discharge Prognosis: Improving Lines: None Urinary Catheter: No Medications and DC Order Prescriptions: New enoxaparin [Lovenox] 30 mg/0.3 mL Syringe 30 mg subcut Q24H 16 Days Qty: 4.8 RF: 0 cyanocobalamin (vitamin B-12) [Vitamin B-12] 100 mcg Tablet 100 mcg PO QAM Qty: 30 RF: 0 sennosides-docusate sodium [Senokot-S] 8.6-50 mg Tablet 2 tab PO HS Qty: 60 RF: 0 acetaminophen 500 mg Tablet 1,000 mg PO TID Qty: 30 RF: 0 folic acid 1 mg Tablet 1 mg PO QAM Qty: 30 RF: 0 Continued nystatin [Nystop] 100,000 unit/gram powder 1 appln TOP Q8H Qty: 60 RF: 5 amlodipine 5 mg tablet 5 mg PO DAILY Qty: 90 RF: 1 aspirin 81 mg Tablet,Delayed Release (Dr/Ec) 81 mg PO DAILY RF: 0 donepezil 10 mg Tablet 10 mg PO HS RF: 0 escitalopram oxalate [Lexapro] 5 mg Tablet 7.5 mg PO DAILY RF: 0 calcium citrate-vitamin D3 [Calcium Citrate + D] 315 mg-5 mcg (200 unit) Tablet 1 tab PO DAILY RF: 0 cholecalciferol (vitamin D3) [Vitamin D3] 50 mcg (2,000 unit) Capsule 50 mcg PO DAILY RF: 0 Discontinued ibuprofen 200 mg Tablet 200 mg PO Q6H PRN (Reason: migraines) RF: 0 acetaminophen 500 mg Tablet 500 mg PO Q4H PRN (Reason: pain/fever) RF: 0 Discharge Orders: Discharge Order (Routine); Ordered 06/15/20 Ordered By: Melissa Hines Admission Data Admit Date/Time: 06/09/20 13:39 Attending Provider: Melissa Hines Admit Provider: Sloan Watson Primary Care Provider: Rajesh Hammer [place] Other Providers: Rajesh Hammer [facility] ; Favian Aguirre ; Sloan Watson ; Zacarias Lyons Coding Level of Care Code D/C Day Management >30 mins Diagnoses Closed fracture of left hip S72.002A Encounter type: initial encounter Acute blood loss anemia D62 Osteoporosis with fracture M80.80XA Hypertension I10 Vitamin D deficiency E55.9 Hematuria R31.9 Alzheimer's dementia G30.9; F02.80 Anxiety F41.9 Hypokalemia E87.6 Leukocytosis D72.829 Vitamin B12 deficiency anemia D51.9 Folic acid deficiency anemia D52.9 DVT prophylaxis Z29.9
[2020-06-16] MEDS ORDERED: CYANOCOBALAMIN (VITAMIN B-12) 100 MCG TABLET PO SCH (09:00)
== END 2020-06-15 11:56 | DRG 522 ==
LOC: ED 11:20 → SUATTDRO 13:39 → 3W 13:39 → 2W 06-10 18:14 → 3N 06-15 05:29

== ENCOUNTER 2021-02-06 14:18 | Inpatient (IN) ==
[2021-02-06 14:59] LABS: Basophils # (auto) 0.03 K/uL (0-0.2); Basophils % (auto) 0.2 %; Eosinophils # (auto) 0.32 K/uL (0-0.5); Eosinophils % (auto) 2.1 %; Hematocrit (blood only) 41.3 % (37-47); Hemoglobin 13.4 g/dL (12.0-16.0); Immature Granulocytes # (auto) 0.03 K/uL (0.00-0.02); Immature Granulocytes % (auto) 0.2 %; Lymphocytes # (auto) 1.24 K/uL (1.2-3.4); Mean Corpuscular Hemoglobin 33.5 pg (25-34); Mean Corpuscular Hgb Conc 32.4 g/dL (32-36); Mean Corpuscular Volume 103.3 fL (80-100); Mean Platelet Volume 9.9 fL (7.4-10.4); Monocytes # (auto) 1.25 K/uL (0.11-0.59); Neutrophils % (auto) 81.5 %; Platelet Count 292 K/uL (130-400); RDW Coefficient of Variation 13.4 % (11.5-14.5); RDW Standard Deviation 50.8 fL (36.4-46.3); White Blood Count 15.57 K/uL (4.8-10.8)
--- NOTE | 2021-02-06 15:05 | Emergency Department Note ---
History of Present Illness General Chief complaint: Chest Pain Stated complaint: CHEST PAIN Time Seen by Provider: 02/06/21 14:39 Source: EMS and RN notes reviewed History of Present Illness Provider complaint: Hypoxic chest pain Maximum Pain Intensity: 6 85-year-old female with history of Alzheimer's from intermediate presents emergency department via EMS. Per EMS they were called for the patient having chest pain. Patient was found to be hypoxic. Patient does have a history of CHF. No report of falls. Home Medications Medication Instructions Recorded Confirmed Type aspirin 81 mg tablet,delayed 81 mg PO QAM 12/27/18 02/06/21 History release calcium citrate 315 mg-vitamin D3 1 tab PO QAM 06/09/20 02/06/21 History 5 mcg (200 unit) tablet (Calcium Citrate + D) cholecalciferol (vitamin D3) 50 50 mcg PO QAM 06/09/20 02/06/21 History mcg (2,000 unit) capsule (Vitamin D3) folic acid 1 mg tablet 1 mg PO QAM #30 tab 06/15/20 02/06/21 Rx sennosides 8.6 mg-docusate sodium 2 tab PO HS #60 tab 06/15/20 02/06/21 Rx 50 mg tablet (Senokot-S) Barrier Cream 1 applic TOPICAL TID 02/06/21 02/06/21 History acetaminophen 500 mg tablet 1,000 mg PO BID 02/06/21 02/06/21 History amlodipine 5 mg tablet 5 mg PO QAM 02/06/21 02/06/21 History chlorhexidine gluconate 0.12 % 5 ml BUCCAL HS 02/06/21 02/06/21 History mouthwash (Peridex) dextromethorphan-guaifenesin 10 10 ml PO Q6H 02/06/21 02/06/21 History mg-100 mg/5 mL oral syrup escitalopram oxalate 10 mg tablet 10 mg PO QAM 02/06/21 02/06/21 History (Lexapro) furosemide 20 mg tablet (Lasix) 10 mg PO QAM 02/06/21 02/06/21 History mirtazapine 15 mg tablet (Remeron) 15 mg PO HS 02/06/21 02/06/21 History Allergies Allergy/AdvReac Type Severity Reaction Status Date / Time SHO Inhibitors Allergy Unknown ON JUNIPER Verified 02/06/21 15:11 MED LIST alendronate sodium Allergy Unknown ON JUNIPER Verified 02/06/21 15:11 MED LIST amoxicillin Allergy Unknown ON JUNIPER Verified 02/06/21 15:11 MED LIST capsaicin Allergy Unknown ON JUNIPER Verified 02/06/21 15:11 MED LIST clavulanic acid Allergy Unknown ON JUNIPER Verified 02/06/21 15:11 MED LIST diclofenac Allergy Unknown ON JUNIPER Verified 02/06/21 15:11 MED LIST ezetimibe Allergy Unknown ON JUNIPER Verified 02/06/21 15:11 MED LIST metronidazole [From Flagyl] Allergy Unknown ON JUNIPER Verified 02/06/21 15:11 MED LIST pravastatin Allergy Unknown ON JUNIPER Verified 02/06/21 15:11 MED LIST rosuvastatin Allergy Unknown ON JUNIPER Verified 02/06/21 15:11 MED LIST Pqvhzpj-AZY-CpZ Reductase Allergy Unknown ON JUNIPER Verified 02/06/21 15:11 Inhibitor MED LIST [Kldlsty-Zlz-Hlo Reductase Inhibitor] Past Med/Surg History Medical History (Updated 02/06/21 @ 17:49 by Tommy Henry) Acute angle-closure glaucoma Alzheimer's dementia Anxiety Arthritis Bladder prolapse Carotid artery disease CHF (congestive heart failure) Closed wedge compression fracture of L3 vertebra Folic acid deficiency anemia GERD (gastroesophageal reflux disease) Headache, migraine History of recurrent UTIs Hypertension Osteoarthritis Osteoporosis with fracture Vitamin B12 deficiency anemia Surgical History H/O eye surgery H/O: hysterectomy History of bunionectomy S/P bladder repair S/P eye surgery Correction of acute angle glaucoma S/P hysterectomy Secondary to uterine prolapse. Questionable oophorectomy Status post bunionectomy Family History Father Lung cancer Daughter Non Hodgkin's lymphoma Mother , in her mid 40s secondary to acute cerebral hemorrhage Cerebral hemorrhage Other Family history non-contributory Denies family history of Ovarian cancer Prostate cancer Myocardial infarction Breast cancer Colorectal cancer Social History Smoking Status: Smoker, status unknown Hx Alcohol Use: No Hx Substance Use: No Preferred Language: Chinese Communication Ability: Effective Visual Impairment: No Limitations Hearing Ability: Use of Hearing Aid Beliefs That Will Affect Care: None marital status: Current Living Situation: Custodial Current Living Situation Comment: [facility] current occupational status: retired 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 Feels Safe at Home: Yes Childhood Exposure to Second-Hand Smoke: No Dental Care, Regularly: Yes Physical Activity Frequency: Does not Exercise Seatbelt Use: always Sunscreen Use: Yes Assistive Devices: Oxygen - Continuous Review of Systems Unobtainable due to cognitive status Physical Exam Vital Signs Vital Signs - 24 hr 02/06/21 14:34 02/06/21 14:40 02/06/21 17:44 Pulse Rate 101 H Pulse Rate [Apical] 92 H 83 Pulse Rhythm [Apical] Regular Respiratory Rate 17 31 H 22 Respiratory Effort / Characteristics Non-Labored Respiratory Depth Normal Respiratory Pattern Tachypnea Blood Pressure 144/84 H Blood Pressure [Left Arm] 144/84 H 148/89 H Blood Pressure Mean 104 Blood Pressure Mean [Left Arm] 104 108 Pulse Oximetry 98 99 98 Oxygen Delivery Method Nasal Cannula Nasal Cannula Nasal Cannula Oxygen Flow Rate 3 3 4 Sepsis Recent Fever Within 48 Hours No Sepsis New/Unexplained Change in Mental Status No Sepsis Action Taken by Nursing No Action Required Physical Exam GENERAL: Patient is pleasantly demented. HENT: Exam performed. -Head: Normocephalic and atraumatic. -Right Ear: External ear normal. No mastoid tenderness. -Left Ear: External ear normal. No mastoid tenderness. -Mouth/Throat: The oropharynx is clear and moist. No trismus in the jaw. No dental abscesses or uvula swelling. No oropharyngeal exudate or tonsillar abscesses. EYES: Conjunctivae and EOM are normal. Pupils are equal, round, and reactive to light. Right eye exhibits no discharge. Left eye exhibits no discharge. No scleral icterus. NECK: Normal range of motion. Neck supple. No JVD present. No spinous process tenderness present. No carotid bruit present. No rigidity. No tracheal deviation and normal range of motion present. No Brudzinski's sign and no Kernig's sign noted. CV: Normal rate, regular rhythm, normal heart sounds and intact distal pulses. There is no peripheral edema. Palpable radial pulses bue. PULM/CHEST: Rhonchi and rales bilaterally. ABD: The abdomen is soft. NEURO: Motor and sensation grossly intact. Course Course 1439: The patient was evaluated in room A11. A complete history and physical exam was performed Cardiac monitoring: An order was placed for continuous cardiac monitoring. The monitor shows a rate of 100 with sinus rhythm Patient was found to be hypoxic on room air at 80%. Patient was placed on supplemental oxygen via nasal cannula which improved her oxygen saturation. 1615: Vital signs stable on supplemental oxygen. Labs show leukocytosis. Imaging shows pneumonia. Patient will be admitted to the [facility] team. EMR was reviewed and the patient has had Ancef in the past. Patient be treated with cefepime and vancomycin. Administered Medications Vancomycin HCl 1,000 mg/ (Sodium Chloride) 520 mls @ 200 mls/hr IV NOW ONE Stop: 02/06/21 18:33 Last Admin: 02/06/21 16:18 Dose: 200 mls/hr Documented by: [id number] Discontinued Medications Cefepime HCl (Maxipime) 2,000 mg in 20 mls @ 5 mls/min IV NOW STA; Protocol Stop: 02/06/21 16:01 Last Admin: 02/06/21 16:10 Dose: 5 mls/min Documented by: [id number] Critical Care Time Critical Care Time: Yes Total Critical Care Time: 49 I have personally spent greater than 49 minutes of critical care time in the direct management of this patient. This includes bedside care, interpretation of diagnostic studies, and testing, discussion with consultants, patient, and family members, and other required patient management activities. This 49 minutes is in excess of all separately billable procedures. Medical Decision Making Laboratory Data Result diagrams: 02/06/21 14:35 02/06/21 14:35 Lab Results 02/06/21 02/06/21 02/06/21 Range/Units 14:35 14:35 14:51 WBC 15.57 H (4.8-10.8) K/uL RBC 4.00 L (4.2-5.4) M/uL Hgb 13.4 (12.0-16.0) g/dL Hct 41.3 (37-47) % MCV 103.3 H (80-100) fL MCH 33.5 (25-34) pg MCHC 32.4 (32-36) g/dL RDW Std Deviation 50.8 H (36.4-46.3) fL RDW Coeff of Toñito 13.4 (11.5-14.5) % Plt Count 292 (130-400) K/uL MPV 9.9 (7.4-10.4) fL Immature Gran % (Auto) 0.2 % Neut % (Auto) 81.5 % Lymph % (Auto) 8.0 % [place] % (Auto) 8.0 % Eos % (Auto) 2.1 % Baso % (Auto) 0.2 % Neut # (Auto) 12.70 H (1.4-6.5) K/uL Lymph # (Auto) 1.24 (1.2-3.4) K/uL [place] # (Auto) 1.25 H (0.11-0.59) K/uL Eos # (Auto) 0.32 (0-0.5) K/uL Baso # (Auto) 0.03 (0-0.2) K/uL Immature Gran # (Auto) 0.03 H (0.00-0.02) K/uL Sodium 139 (136-145) mmol/L Potassium 3.8 (3.5-5.1) mmol/L Chloride 105 (98-107) mmol/L Carbon Dioxide 31 (21-32) mmol/L Anion Gap 3.0 (3-11) BUN 16 (7-18) mg/dl Creatinine 0.60 (0.6-1.2) mg/dl Est Cr Clr Drug Dosing Not Reportable Est GFR ( Amer) 96.3 ml/min Est GFR (Non-Af Amer) 83.1 ml/min BUN/Creatinine Ratio 27.5 H (10-20) Glucose 132 H (70-99) mg/dl Calcium 8.6 (8.5-10.1) mg/dl Troponin I < 0.015 (0-0.045) ng/ml NT-Pro-B Natriuret Pep 254 (0-1800) pg/ml COVID-19 Eval Order Covid19 at [facility] SARS-CoV-2 (PCR) (Negative) 02/06/21 Range/Units 14:51 WBC (4.8-10.8) K/uL RBC (4.2-5.4) M/uL Hgb (12.0-16.0) g/dL Hct (37-47) % MCV (80-100) fL MCH (25-34) pg MCHC (32-36) g/dL RDW Std Deviation (36.4-46.3) fL RDW Coeff of Toñito (11.5-14.5) % Plt Count (130-400) K/uL MPV (7.4-10.4) fL Immature Gran % (Auto) % Neut % (Auto) % Lymph % (Auto) % [place] % (Auto) % Eos % (Auto) % Baso % (Auto) % Neut # (Auto) (1.4-6.5) K/uL Lymph # (Auto) (1.2-3.4) K/uL [place] # (Auto) (0.11-0.59) K/uL Eos # (Auto) (0-0.5) K/uL Baso # (Auto) (0-0.2) K/uL Immature Gran # (Auto) (0.00-0.02) K/uL Sodium (136-145) mmol/L Potassium (3.5-5.1) mmol/L Chloride (98-107) mmol/L Carbon Dioxide (21-32) mmol/L Anion Gap (3-11) BUN (7-18) mg/dl Creatinine (0.6-1.2) mg/dl Est Cr Clr Drug Dosing Est GFR ( Amer) ml/min Est GFR (Non-Af Amer) ml/min BUN/Creatinine Ratio (10-20) Glucose (70-99) mg/dl Calcium (8.5-10.1) mg/dl Troponin I (0-0.045) ng/ml NT-Pro-B Natriuret Pep (0-1800) pg/ml COVID-19 Eval Order SARS-CoV-2 (PCR) NEGATIVE (Negative) Imaging Data Radiologist's Impression: Chest X-Ray 02/06/21 14:48 XR chest 1V portable CLINICAL HISTORY: Atypical chest pain. COMPARISON STUDY: Chest radiograph June 09, 2020. Chest CT December 27, 2018. FINDINGS: No pneumothorax or pleural effusion is noted. Cardiomediastinal silhouette is stable. Diffuse interstitial thickening is again noted. There may be mild superimposed left basilar opacity. There is no evidence for pulmonary edema. Old right rib fractures are incidentally noted. IMPRESSION: Diffuse interstitial thickening consistent with interstitial lung disease with pulmonary fibrosis. Mild superimposed left basilar opacity would be difficult to exclude. Radiographic follow-up is recommended. ACT 112: Negative or not required by law. Electronically signed by: Pola Newton M.D. 02/06/2021 3:19 PM ECG Data Indication: + chest pain Rate (beats per minute): 103 Rhythm: + sinus tachycardia ECG Intervals/blocks: + Normal QRS, + Normal CT and + Normal QT-c ECG ST segments: + Normal ST segments [facility] Narrative 1439: The patient was evaluated in room A11. A complete history and physical exam was performed Cardiac monitoring: An order was placed for continuous cardiac monitoring. The monitor shows a rate of 100 with sinus rhythm Patient was found to be hypoxic on room air at 80%. Patient was placed on supplemental oxygen via nasal cannula which improved her oxygen saturation. 1615: Vital signs stable on supplemental oxygen. Labs show leukocytosis. Imaging shows pneumonia. Patient will be admitted to the [facility] team. EMR was reviewed and the patient has had Ancef in the past. Patient be treated with cefepime and vancomycin. Impression & Plan Pneumonia, Hypoxia Discharge Plan Visit Data Chief Complaint: Chest Pain Stated Complaint: CHEST PAIN ED Provider: Tommy Henry Discharge Problem: Pneumonia, Hypoxia Patient Disposition: Admitted As Inpatient Forms Stand Alone Forms: [facility] Prescriptions Prescriptions: No Action aspirin 81 mg Tablet,Delayed Release (Dr/Ec) 81 mg PO QAM RF: 0 calcium citrate-vitamin D3 [Calcium Citrate + D] 315 mg-5 mcg (200 unit) Tablet 1 tab PO QAM RF: 0 cholecalciferol (vitamin D3) [Vitamin D3] 50 mcg (2,000 unit) Capsule 50 mcg PO QAM RF: 0 sennosides-docusate sodium [Senokot-S] 8.6-50 mg Tablet 2 tab PO HS Qty: 60 RF: 0 folic acid 1 mg Tablet 1 mg PO QAM Qty: 30 RF: 0 dextromethorphan-guaifenesin [Guaifenesin DM] 10-100 mg/5 mL Syrup 10 ml PO Q6H RF: 0 furosemide [Lasix] 20 mg Tablet 10 mg PO QAM RF: 0 mirtazapine [Remeron] 15 mg Tablet 15 mg PO HS RF: 0 escitalopram oxalate [Lexapro] 10 mg Tablet 10 mg PO QAM RF: 0 chlorhexidine gluconate [Peridex] 0.12 % Mouthwash 5 ml BUCCAL HS RF: 0 Barrier Cream 1 applic topical TID RF: 0 amlodipine 5 mg tablet 5 mg PO QAM RF: 0 acetaminophen 500 mg tablet 1,000 mg PO BID RF: 0 Referrals Referrals: Rajesh Ospina [place] [Primary Care Provider] -
--- NOTE | 2021-02-06 15:20 | XRay Report ---
XR chest 1V portable CLINICAL HISTORY: Atypical chest pain. COMPARISON STUDY: Chest radiograph June 09, 2020. Chest CT December 27, 2018. FINDINGS: No pneumothorax or pleural effusion is noted. Cardiomediastinal silhouette is stable. Diffu se interstitial thickening is again noted. There may be mild superimposed left basilar opacity. There is no evidence for pulmonary edema. Old right rib fractures are incidentally noted. IMPRESSION: Diffuse interstitial thickening consistent with interstitial lung disease with pulmonary fibrosis. Mild superimposed left basilar opacity would be difficult to exclude. Radiographic follow- up is recommended. ACT 112: Negative or not required by law. Electronically signed by: Pola Newton M.D. 02/06/2021 3:19 PM
[2021-02-06 15:21] LABS: BUN Creatinine Ratio 27.5 (10-20); Blood Urea Nitrogen 16 mg/dl (7-18); Calcium 8.6 mg/dl (8.5-10.1); Carbon Dioxide 31 mmol/L (21-32); Chloride 105 mmol/L (98-107); Est GFR (African American) 96.3 ml/min; Est GFR (Non-African American) 83.1 ml/min; Glucose 132 mg/dl (70-99); Potassium 3.8 mmol/L (3.5-5.1); Sodium 139 mmol/L (136-145)
[2021-02-06 15:25] LABS: NT Pro B Type Natriuretic Pept 254 pg/ml (0-1800); Troponin I < 0.015 ng/ml (0-0.045)
[2021-02-06] MEDS ORDERED: VANCOMYCIN HCL 1,000 MG in SODIUM CHLORIDE 0.9% 500 ML IV ONE (15:58)
[2021-02-06] MEDS ORDERED: VANCOMYCIN CONSULT ACTIVE PRN (15:58)
[2021-02-06] MEDS ORDERED: CEFEPIME 2,000 MG/20 ML VIAL IV STA (15:58)
[2021-02-06] MEDS ORDERED: CONSULT PHARMACY STA (16:33)
--- NOTE | 2021-02-06 16:40 | History & Physical Report ---
Date of Service February 06, 2021 Assessment & Plan (1) Pneumonia: Plan: Leukocytosis and reports of ?cough recentlly with rhonchi on prior lung exam. Also some ?chest pain reports this am which may have qualified for pleurisy. She is not septic and is not working to breathe. In setting of structural lung disease, I would cover her broadly for a pneumonia. Procalcitonin pending. Will deescalate pending cultures and clinical improvement over the next 1-2 days. (2) Chest pain: Plan: No history of CAD and initial troponin negative with nonischemic EKG. Doubt ACS, however, will trend troponin and EKG out of abundance of caution and monitor on telemetry overnight. (3) Alzheimer's dementia: Plan: High risk for delirium, reorient as needed. Daughter Emilia, also willing to try and speak to her to reorient if needed. (4) Hypertension: Plan: chronic, stable. Cont home meds including amlodipine. Lasix on hold until she is improved clinically. (5) Pulmonary fibrosis: Plan: Known history of this. Not on inhaler therapy. Will review outpatient notes/specialty notes if available. Cont current supplemental oxygen. (6) Chronic respiratory failure: Plan: likely 2/2 above. Will cont supplemental oxygen. (7) Depression: Plan: Chronically on lexapro and Remeron, continue this per home regimen. (8) Osteoarthritis: Plan: cont scheduled APAP per home regimen. (9) DVT prophylaxis: Plan: heparin DNR/SNI confirmed by chart and patient's Emilia rosales, by phone on admission. Dispo-to PCU DO Paula Rose Hospitalist History of Present Illness Chief Complaint: chest pain, SOB Primary Care Provider: [facility] 85 yo F with Alzheimer's dementia presents to the ER for evaluation of increased SOB and chest pain reported this morning. This patient reported only a few minutes of subxiphoid (she pointed) chest pain this morning brought on by "multiple people wanting to eat..." and then she went into a story that didn't make sense. She was upset because "the kids want to use this (pointing to the remote in the room) and eventually I guess I'm ok with it..." She is not oriented to self (can't tell me her name), place or time. She is an unreliable historian and began to become more flustered with an attempt at physican exam. She grabbed my hand and pushed me away, so this was not performed. She also turned to me and began bucking her teeth and making a mockery of what I was saying. We ended the interview at this point. I contacted her daughter by phone and updated her on the situation. Additionally, I reviewed the outpatient notes. The last evaluation on 02/02 states that she has had a cough, hoarse voice (not appreciated tonight), body aches, and fatigue which began on 02/01. No fevers or chills reported. She is on chronic oxygen and oxygen saturation was stable on her home settings. Exam at that time was uncooperative, however her pulmonary exam revealed expiratory rhonchi in the left mid field with noted poor inspiration and poor cooperation. CXR reviewed with possible pneumonia and she has been started on broad spectrum antibiotics. Urinalysis is pending. Procalcitonin is pending. BNP is normal and she doesn't appear fluid overloaded on exam. 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 Allergies Allergy/AdvReac Type Severity Reaction Status Date / Time SHO Inhibitors Allergy Unknown ON SEPIPER Verified 02/06/21 15:11 MED LIST alendronate sodium Allergy Unknown ON SEPIPER Verified 02/06/21 15:11 MED LIST amoxicillin Allergy Unknown ON SEPIPER Verified 02/06/21 15:11 MED LIST capsaicin Allergy Unknown ON SEPIPER Verified 02/06/21 15:11 MED LIST clavulanic acid Allergy Unknown ON JUNIPER Verified 02/06/21 15:11 MED LIST diclofenac Allergy Unknown ON JUNIPER Verified 02/06/21 15:11 MED LIST ezetimibe Allergy Unknown ON JUNIPER Verified 02/06/21 15:11 MED LIST metronidazole [From Flagyl] Allergy Unknown ON SEPIPER Verified 02/06/21 15:11 MED LIST pravastatin Allergy Unknown ON JUNIPER Verified 02/06/21 15:11 MED LIST rosuvastatin Allergy Unknown ON JUNIPER Verified 02/06/21 15:11 MED LIST Ictvhwy-FVI-UwW Reductase Allergy Unknown ON JUNIPER Verified 02/06/21 15:11 Inhibitor MED LIST [Ltwtxbb-Hek-Nls Reductase Inhibitor] Home Medications Medication Instructions Recorded Confirmed Type aspirin 81 mg tablet,delayed 81 mg PO QAM 12/27/18 02/06/21 History release calcium citrate 315 mg-vitamin D3 1 tab PO QAM 06/09/20 02/06/21 History 5 mcg (200 unit) tablet (Calcium Citrate + D) cholecalciferol (vitamin D3) 50 50 mcg PO QAM 06/09/20 02/06/21 History mcg (2,000 unit) capsule (Vitamin D3) folic acid 1 mg tablet 1 mg PO QAM #30 tab 06/15/20 02/06/21 Rx sennosides 8.6 mg-docusate sodium 2 tab PO HS #60 tab 06/15/20 02/06/21 Rx 50 mg tablet (Senokot-S) Barrier Cream 1 applic TOPICAL TID 02/06/21 02/06/21 History acetaminophen 500 mg tablet 1,000 mg PO BID 02/06/21 02/06/21 History amlodipine 5 mg tablet 5 mg PO QAM 02/06/21 02/06/21 History chlorhexidine gluconate 0.12 % 5 ml BUCCAL HS 02/06/21 02/06/21 History mouthwash (Peridex) dextromethorphan-guaifenesin 10 10 ml PO Q6H 02/06/21 02/06/21 History mg-100 mg/5 mL oral syrup escitalopram oxalate 10 mg tablet 10 mg PO QAM 02/06/21 02/06/21 History (Lexapro) furosemide 20 mg tablet (Lasix) 10 mg PO QAM 02/06/21 02/06/21 History mirtazapine 15 mg tablet (Remeron) 15 mg PO HS 02/06/21 02/06/21 History Past Med/Surg History Medical History Acute angle-closure glaucoma Alzheimer's dementia Anxiety Arthritis Bladder prolapse Carotid artery disease CHF (congestive heart failure) Closed wedge compression fracture of L3 vertebra Folic acid deficiency anemia GERD (gastroesophageal reflux disease) Headache, migraine History of recurrent UTIs Hypertension Osteoarthritis Osteoporosis with fracture Vitamin B12 deficiency anemia Surgical History H/O eye surgery H/O: hysterectomy History of bunionectomy S/P bladder repair S/P eye surgery Correction of acute angle glaucoma S/P hysterectomy Secondary to uterine prolapse. Questionable oophorectomy Status post bunionectomy Family History Father Lung cancer Daughter Non Hodgkin's lymphoma Mother , in her mid 40s secondary to acute cerebral hemorrhage Cerebral hemorrhage Other Family history non-contributory Denies family history of Ovarian cancer Prostate cancer Myocardial infarction Breast cancer Colorectal cancer Social History Smoking Status: Smoker, status unknown Hx Alcohol Use: No Hx Substance Use: No Preferred Language: Togolese Communication Ability: Effective Visual Impairment: No Limitations Hearing Ability: Use of Hearing Aid Beliefs That Will Affect Care: None marital status: Current Living Situation: [facility] Current Living Situation Comment: [facility] current occupational status: retired 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 Physical Exam Physical Exam: CONSTITUTIONAL: thin, frail, elderly, vitals as above, generally well-appearing and in NAD. EYES: normal conjunctivae, no scleral icterus ENT: external ear and nose normal, pt declined OP exam. NECK: trachea midline, declined neck exam for LAD check RESPIRATORY: normal respiratory effort, oxygenating 98% on 3LPM, declined pulmonary exam. CARDIOVASCULAR: no peripheral edema, declined cardiac exam. CHEST: inspection of chest was normal GASTROINTESTINAL: soft, nontender, nondistended, pushed me away during this part of the exam. MUSCULOSKELETAL: strength 5/5 throughout, head is normocephalic and atraumatic SKIN: warm and dry NEUROLOGIC: CN 2-12 grossly intact,normal cognition, normal speech, no tremor PSYCHIATRIC: alert, uncooperative, disoriented to seld, place and time. Results & Data Results & Data ([facility]) Vital Signs (Past 12 Hours) Vital Signs Pulse Pulse Resp BP BP Pulse Ox 02/06/21 14:40 92 H 31 H 144/84 H 99 02/06/21 14:34 101 H 17 144/84 H 98 Laboratory Results Short CBC 02/06/21 02/06/21 02/06/21 Range/Units 14:35 14:35 14:51 WBC 15.57 H (4.8-10.8) K/uL RBC 4.00 L (4.2-5.4) M/uL Hgb 13.4 (12.0-16.0) g/dL Hct 41.3 (37-47) % MCV 103.3 H (80-100) fL MCH 33.5 (25-34) pg MCHC 32.4 (32-36) g/dL RDW Std Deviation 50.8 H (36.4-46.3) fL RDW Coeff of [place] 13.4 (11.5-14.5) % Plt Count 292 (130-400) K/uL MPV 9.9 (7.4-10.4) fL Immature Gran % (Auto) 0.2 % Neut % (Auto) 81.5 % Lymph % (Auto) 8.0 % [place] % (Auto) 8.0 % Eos % (Auto) 2.1 % Baso % (Auto) 0.2 % Neut # (Auto) 12.70 H (1.4-6.5) K/uL Lymph # (Auto) 1.24 (1.2-3.4) K/uL [place] # (Auto) 1.25 H (0.11-0.59) K/uL Eos # (Auto) 0.32 (0-0.5) K/uL Baso # (Auto) 0.03 (0-0.2) K/uL Immature Gran # (Auto) 0.03 H (0.00-0.02) K/uL Sodium 139 (136-145) mmol/L Potassium 3.8 (3.5-5.1) mmol/L Chloride 105 (98-107) mmol/L Carbon Dioxide 31 (21-32) mmol/L Anion Gap 3.0 (3-11) BUN 16 (7-18) mg/dl Creatinine 0.60 (0.6-1.2) mg/dl Est Cr Clr Drug Dosing Not Reportable Est GFR ( Amer) 96.3 ml/min Est GFR (Non-Af Amer) 83.1 ml/min BUN/Creatinine Ratio 27.5 H (10-20) Glucose 132 H (70-99) mg/dl Calcium 8.6 (8.5-10.1) mg/dl Troponin I < 0.015 (0-0.045) ng/ml NT-Pro-B Natriuret Pep 254 (0-1800) pg/ml COVID-19 Eval Order Covid19 at [facility] SARS-CoV-2 (PCR) (Negative) 02/06/21 Range/Units 14:51 WBC (4.8-10.8) K/uL RBC (4.2-5.4) M/uL Hgb (12.0-16.0) g/dL Hct (37-47) % MCV (80-100) fL MCH (25-34) pg MCHC (32-36) g/dL RDW Std Deviation (36.4-46.3) fL RDW Coeff of [place] (11.5-14.5) % Plt Count (130-400) K/uL MPV (7.4-10.4) fL Immature Gran % (Auto) % Neut % (Auto) % Lymph % (Auto) % Victoria % (Auto) % Eos % (Auto) % Baso % (Auto) % Neut # (Auto) (1.4-6.5) K/uL Lymph # (Auto) (1.2-3.4) K/uL Victoria # (Auto) (0.11-0.59) K/uL Eos # (Auto) (0-0.5) K/uL Baso # (Auto) (0-0.2) K/uL Immature Gran # (Auto) (0.00-0.02) K/uL Sodium (136-145) mmol/L Potassium (3.5-5.1) mmol/L Chloride (98-107) mmol/L Carbon Dioxide (21-32) mmol/L Anion Gap (3-11) BUN (7-18) mg/dl Creatinine (0.6-1.2) mg/dl Est Cr Clr Drug Dosing Est GFR ( Amer) ml/min Est GFR (Non-Af Amer) ml/min BUN/Creatinine Ratio (10-20) Glucose (70-99) mg/dl Calcium (8.5-10.1) mg/dl Troponin I (0-0.045) ng/ml NT-Pro-B Natriuret Pep (0-1800) pg/ml COVID-19 Eval Order SARS-CoV-2 (PCR) NEGATIVE (Negative) BMP 02/06/21 14:35 Sodium 139 Potassium 3.8 Chloride 105 Carbon Dioxide 31 BUN 16 Creatinine 0.60 Glucose 132 H Calcium 8.6 Cardiac Enzymes 02/06/21 Range/Units 14:35 Troponin I < 0.015 (0-0.045) ng/ml Diagnostic Findings Chest X-Ray 02/06/21 14:48 XR chest 1V portable CLINICAL HISTORY: Atypical chest pain. COMPARISON STUDY: Chest radiograph June 09, 2020. Chest CT December 27, 2018. FINDINGS: No pneumothorax or pleural effusion is noted. Cardiomediastinal silho uette is stable. Diffuse interstitial thickening is again noted. There may be mild superimposed left basilar opacity. There is no evidence for pulmonary edema. Old right rib fractures are incidentally noted. IMPRESSION: Diffuse interstitial thickening consistent with interstitial lung disease with pulmonary fibrosis. Mild superimposed left basilar opacity would be difficult to exclude. Radiographic follow-up is recommended. ACT 112: Negative or not required by law. Electronically signed by: Pola Newton M.D. 02/06/2021 3:19 PM Medications Administered Vanc 1mg IV Cefepime 2gm IV Code Status & VTE Plan Code Status DNR per records, confirmed with daughter by phone.
[2021-02-06] MEDS ORDERED: ONDANSETRON INJ 2 MG/ML 2 ML VIAL IV PRN (20:24)
[2021-02-06] MEDS ORDERED: ACETAMINOPHEN 325 MG TAB PO PRN (20:24)
[2021-02-06] MEDS ORDERED: POLYETHYLENE (MIRALAX) 17 GM PACK PO PRN (20:24)
[2021-02-06] MEDS ORDERED: CEFEPIME CONSULT ACTIVE PRN (20:37)
[2021-02-06] MEDS: DOCUSATE SODIUM/SENNA 50/8.6MG TAB PO SCH (21:47)
[2021-02-06] MEDS: HEPARIN SOD 5,000 UNIT/0.5 ML VIAL SQ SCH (21:47)
[2021-02-06] MEDS: ACETAMINOPHEN 500 MG TAB PO SCH (21:47)
[2021-02-06] MEDS: MIRTAZAPINE TAB 15 MG TAB PO SCH (21:48)
[2021-02-06] MEDS ORDERED: INFLUENZA VACCINE HIGH DOSE PF 65+ 0.7 ML SYR IM ONE (23:13)
[2021-02-06] MEDS: PATIENT'S HEIGHT AND/OR WEIGHT NEEDED SCH (23:14)
[2021-02-07 02:46] LABS: Hematocrit (blood only) 38.9 % (37-47); Hemoglobin 12.5 g/dL (12.0-16.0); Mean Corpuscular Hgb Conc 32.1 g/dL (32-36); Mean Corpuscular Volume 102.6 fL (80-100); Mean Platelet Volume 9.7 fL (7.4-10.4); Platelet Count 285 K/uL (130-400); RDW Coefficient of Variation 13.5 % (11.5-14.5); RDW Standard Deviation 50.3 fL (36.4-46.3); Red Blood Count 3.79 M/uL (4.2-5.4); White Blood Count 11.91 K/uL (4.8-10.8)
[2021-02-07 03:23] LABS: Blood Urea Nitrogen 12 mg/dl (7-18); Calcium 8.1 mg/dl (8.5-10.1); Carbon Dioxide 26 mmol/L (21-32); Chloride 109 mmol/L (98-107); Creatinine Clr Calc Pharmacy 68.2 ml/min; Est GFR (African American) 110.1 ml/min; Glucose 103 mg/dl (70-99); Magnesium 2.6 mg/dl (1.8-2.4); Sodium 140 mmol/L (136-145); Triglycerides 60 mg/dl (0-150); VLDL Cholesterol 12 mg/dl
[2021-02-07 03:42] LABS: Chol HDL Ratio 3; Cholesterol 136 mg/dl (0-200); Creatine Kinase 29 U/L (26-192); HDL Cholesterol 46 mg/dl; LDL Cholesterol Calculated 78 mg/dl; Troponin I < 0.015 ng/ml (0-0.045)
[2021-02-07] MEDS ORDERED: CEFEPIME 2,000 MG in SYRINGE 0 ML IV SCH (04:00)
[2021-02-07 05:26] LABS: Appearance Urine Clear (Clear); Bacteria Urine Automated Negative (Negative); Bilirubin Urine Negative (Negative); Blood Urine Negative (Negative); Color Urine Dark Yellow; Epithelial Cell Urine Auto >30 /lpf (0-5); Glucose Urine UA Negative (Negative); Ketones Urine Trace (Negative); Leukocyte Esterase Urine Negative (Negative); Nitrite Urine Negative (Negative); Protein Urine Trace (Negative); RBC Urine Automated 0-4 /hpf (0-4); Specific Gravity Urine 1.032 (1.000-1.030); Urobilinogen Urine Negative (Negative); pH Urine 5.5 (4.5-7.5)
[2021-02-07] MEDS ORDERED: VANCOMYCIN HCL 500 MG in 0.9 % SODIUM CHLORIDE 100 ML IV SCH (06:00)
--- NOTE | 2021-02-07 06:21 | Pharmacy Report ---
Pharmacy Abx Initial Consult - Date of Service February 07, 2021 - Pharmacy Dosing Scope Date of Consult: 02/06/21 Consultation requested by: Dr. Todd Pharmacy is consulted to initiate VANCOMYCIN/CEFEPIME IV dosing therapy, order appropriate labs and adjust drug dose/frequency. - Subjective The patient is a 85 year old F admitted on 02/06/21 17:07. - Objective Height: 5 ft 1 in Weight: 40.5 kg Vital Signs (Past 12hrs): Vital Signs Temp Pulse Pulse Resp BP Pulse Ox 02/07/21 04:46 36.6 C 74 20 148/85 H 100 02/06/21 23:36 37.0 C 75 24 148/70 H 97 02/06/21 20:40 36.6 C 76 20 115/73 98 02/06/21 20:24 89 02/06/21 19:31 79 12 140/71 97 Lab Results (24hrs): Laboratory Tests (24 Hours) 02/07/21 02/07/21 02/06/21 02:24 02:24 14:35 WBC 11.91 H Neut # (Auto) Creatinine 0.40 L Est Cr Clr Drug Dosing 68.2 Total Creatine Kinase 29 Procalcitonin < 0.05 02/06/21 02/06/21 14:35 14:35 WBC 15.57 H Neut # (Auto) 12.70 H Creatinine 0.60 Est Cr Clr Drug Dosing Not Reportable Total Creatine Kinase Procalcitonin Micro Results: 02/07/21 05:05 Urine Culture - Pending Urine,Straight Cath - Risk Factors for Resistance * Resident in a half-way or extended-care facility - Assessment & Plan Assessment 85 year old F admitted with pna, ordered VANCOMYCIN and CEFEPIME Plan Vancomycin IV * Loading dose: 1000mg (~22 mg/kg) * Maintenance dose: 500mg IV (~12 mg/kg) every 12 hours * Trough level will be ordered if Vancomycin is continued. Pharmacy will continue to follow and will adjust dose/frequency as necessary. Thank you.
[2021-02-07] MEDS: PATIENT'S HEIGHT AND/OR WEIGHT NEEDED SCH ×4 (07:06→07:14)
[2021-02-07] MEDS: ESCITALOPRAM OXALATE 10 MG TAB PO SCH (08:32)
[2021-02-07] MEDS: ACETAMINOPHEN 500 MG TAB PO SCH ×2 (08:32→20:45)
[2021-02-07] MEDS: amLODIPine BESYLATE 5 MG TAB PO SCH (08:32)
[2021-02-07] MEDS: ASPIRIN 81 MG ECTAB PO SCH (08:32)
[2021-02-07] MEDS: HEPARIN SOD 5,000 UNIT/0.5 ML VIAL SQ SCH ×2 (08:33→20:46)
[2021-02-07] MEDS: CEFEPIME 2,000 MG in SYRINGE 0 ML IV SCH ×2 (13:18→22:26)
--- NOTE | 2021-02-07 16:36 | Hospitalist Progress Note ---
Date of Service February 07, 2021 Assessment & Plan (1) Pneumonia: Plan: Leukocytosis and reports of ?cough recentlly with rhonchi on prior lung exam. Also some ?chest pain reports this am which may have qualified for pleurisy. She appears improved wtih an improvement in leukocytosis on cefepime. Vanc stopped as MRSA screen negative. Will deescalate antibiotics pending cultures and clinical improvement over the next 1-2 days. (2) Chest pain: Plan: First off, patient insight into her disease processes is very poor and it is unclear if she actually ever had any chest pain of significance or if she just mentioned it in passing. She is not concerned about this. No history of CAD and serial troponins negative overnight with nonischemic EKG. (3) Alzheimer's dementia: Plan: High risk for delirium, reorient as needed. Daughter Emilia, also willing to try and speak to her to reorient if needed. (4) Hypertension: Plan: chronic, stable. Cont home meds including amlodipine. Lasix on hold until she is improved clinically. Will restart this now. (5) Pulmonary fibrosis: Plan: Known history of this. Not on inhaler therapy. Outpatient notes/specialty unavailable. Pulmonary outpatient follow-up recommended. Cont current supplemental oxygen. (6) Chronic respiratory failure: Plan: likely 2/2 above. Will cont supplemental oxygen. (7) Depression: Plan: Chronically on lexapro and Remeron, continue this per home regimen. (8) Osteoarthritis: Plan: cont scheduled APAP per home regimen. (9) DVT prophylaxis: Plan: heparin DNR/DNI Dispo-to med/surg and likely to [facility] by Sun. Trina Todd DO [facility] Hospitalist Admission and Anticipated Discharge Date Admission Date: February 06, 2021 Subjective 85 yo F presents with pneumonia. ROS is unavailable because of Alheimer's dementia. She is breathing well on baseline oxygen supplementation. h/o pulmonary fibrosis with ILD. Afebrile. Urine is contaminated and unreliable as it was drawn 12 hours after the antibiotics were started. Review of Systems Review of Systems: At least ten systems were reviewed and negative except as indicated in HPI above. Physical Exam Physical Exam: CONSTITUTIONAL: thin, frail, elderly, vitals as above, generally well-appearing and in NAD. EYES: normal conjunctivae, no scleral icterus ENT: external ear and nose normal, MMM NECK: trachea midline RESPIRATORY: normal respiratory effort, oxygenating 98% on 3LPM, crackles at bases bilaterally-limited exam as patient is moving and talking through the exam. CARDIOVASCULAR: no peripheral edema, S1/2 heard with no murmurs, gallops or rubs. CHEST: inspection of chest was normal GASTROINTESTINAL: soft, nontender, nondistended MUSCULOSKELETAL: strength 5/5 throughout, head is normocephalic and atraumatic SKIN: warm and dry NEUROLOGIC: CN 2-12 grossly intact,normal cognition, normal speech, no tremor PSYCHIATRIC: alert, more cooperative today, oriented to self only. Results & Data Results & Data ([facility]) Vital Signs (Past 12 Hours) Vital Signs Temp Pulse Pulse Resp BP Pulse Ox 02/07/21 15:45 36.3 C L 72 18 149/75 H 100 02/07/21 15:19 69 02/07/21 11:55 36.6 C 65 16 131/73 100 02/07/21 08:01 36.0 C L 75 18 143/81 H 96 02/07/21 07:31 64 02/07/21 04:46 36.6 C 74 20 148/85 H 100 Laboratory Results Short CBC 02/07/21 Range/Units 02:24 WBC 11.91 H (4.8-10.8) K/uL Hgb 12.5 (12.0-16.0) g/dL Hct 38.9 (37-47) % Plt Count 285 (130-400) K/uL BMP 02/07/21 02:24 Sodium 140 Potassium 4.0 Chloride 109 H Carbon Dioxide 26 BUN 12 Creatinine 0.40 L Glucose 103 H Calcium 8.1 L Cardiac Enzymes 02/06/21 02/07/21 Range/Units 20:46 02:24 Total Creatine Kinase 29 (26-192) U/L Troponin I < 0.015 < 0.015 (0-0.045) ng/ml Urine 02/07/21 Range/Units 05:05 Urine Color Dark Yellow Urine Appearance Clear (Clear) Urine pH 5.5 (4.5-7.5) Ur Specific [place] 1.032 H (1.000-1.030) Urine Protein Trace H (Negative) Urine Glucose (UA) Negative (Negative) Medications Administered Current Inpatient Medications Acetaminophen (Acetaminophen 325 Mg Tab) 650 mg PO Q4H PRN PRN Reason: Pain or Fever Stop: 03/08/21 20:23 Acetaminophen (Acetaminophen 500 Mg Tab) 500 mg PO BID [facility] Stop: 03/08/21 20:59 Last Admin: 02/07/21 08:32 Dose: 500 mg Documented by: Amlodipine Besylate (Amlodipine Besylate 5 Mg Tab) [facility] Stop: 03/09/21 08:59 Last Admin: 02/07/21 08:32 Dose: 5 mg Documented by: Aspirin (Aspirin 81 Mg Ectab) 81 [facility] Stop: 03/09/21 08:59 Last Admin: 02/07/21 08:32 Dose: 81 mg Documented by: Escitalopram Oxalate (Escitalopram Oxalate 10 Mg Tab) 10 mg PO [facility] Stop: 03/09/21 08:59 Last Admin: 02/07/21 08:32 Dose: 10 mg Documented by: Heparin Sodium (Porcine) (Heparin Sod 5,000 Unit/0.5 Ml Vial) 5,000 units SQ Q12 [facility] Stop: 03/08/21 20:59 Last Admin: 02/07/21 08:33 Dose: 5,000 units Documented by: Cefepime HCl 2,000 mg/ Syringe 20 mls @ 5 mls/min IV Q8 [facility]; Protocol Stop: 02/14/21 13:59 Last Admin: 02/07/21 13:18 Dose: 5 mls/min Documented by: Mirtazapine (Mirtazapine Tab 15 Mg Tab) 15 mg PO [facility] Stop: 03/08/21 20:59 Last Admin: 02/06/21 21:48 Dose: 15 mg Documented by: Miscellaneous Information (Cefepime Consult Active) 1 ea N/A UD PRN PRN Reason: Consult Stop: 03/08/21 20:36 Ondansetron HCl (Ondansetron Inj 2 Mg/Ml 2 Ml Vial) 4 mg IV Q6H PRN PRN Reason: Nausea Stop: 03/08/21 20:23 Polyethylene Glycol (Polyethylene (Miralax) 17 Gm Pack) 17 gm PO DAILY PRN PRN Reason: Constipation Stop: 03/08/21 20:23 Senna/Docusate Sodium (Docusate Sodium/Senna 50/8.6mg Tab) 2 tab PO [facility] Stop: 03/08/21 20:59 Last Admin: 02/06/21 21:47 Dose: 2 tab Documented by: (1) Pneumonia Laterality: unspecified laterality Lung location: unspecified part of lung Pneumonia type: due to unspecified organism Qualified Code(s): J18.9 - Pneumonia, unspecified organism
--- NOTE | 2021-02-07 16:58 | Electrocardiogram Report ---
Test Reason : Blood Pressure : / mmHG Vent. Rate : 103 BPM Atrial Rate : 103 BPM P-R Int : 192 ms QRS Dur : 080 ms QT Int : 356 ms P-R-T Axes : 021 -40 062 degrees QTc Int : 466 ms Sinus tachycardia Left axis deviation Inferior infarct (cited on or before 31-MAY-2017) Anteroseptal infarct (cited on or before 31-MAY-2017) Abnormal ECG When compared with ECG of 09-JUN-2020 11:35, SC interval has decreased T wave inversion more evident in Anterior leads Confirmed by Pardeep Nelson ([id number]) on 02/07/2021 4:58:46 PM Referred By: Confirmed By:Pardeep Nelson
[2021-02-07] MEDS: MIRTAZAPINE TAB 15 MG TAB PO SCH (20:44)
[2021-02-07] MEDS: DOCUSATE SODIUM/SENNA 50/8.6MG TAB PO SCH (20:44)
[2021-02-08] MEDS: CEFEPIME 2,000 MG in SYRINGE 0 ML IV SCH (06:14)
[2021-02-08 07:17] LABS: Creatinine Clr Calc Pharmacy 67.4 ml/min; Est GFR (Non-African American) 95.8 ml/min
[2021-02-08] MEDS: cefUROXime axetil 500 MG TAB PO SCH ×2 (09:07→20:47)
[2021-02-08] MEDS: FUROSEMIDE 20 MG TAB PO SCH (09:08)
[2021-02-08] MEDS: ACETAMINOPHEN 500 MG TAB PO SCH ×2 (09:09→20:55)
[2021-02-08] MEDS: ESCITALOPRAM OXALATE 10 MG TAB PO SCH (09:10)
[2021-02-08] MEDS: amLODIPine BESYLATE 5 MG TAB PO SCH (09:10)
[2021-02-08] MEDS: ASPIRIN 81 MG ECTAB PO SCH (09:10)
[2021-02-08] MEDS: HEPARIN SOD 5,000 UNIT/0.5 ML VIAL SQ SCH ×2 (09:12→20:46)
--- NOTE | 2021-02-08 09:40 | Hospitalist Progress Note ---
Date of Service February 08, 2021 Assessment & Plan (1) Pneumonia: Plan: -Presented from [facility] with reports of SOB and ?chest pain. WBC 15K, rhonci on exam, CXR ? pneumonia. -Received Vanco and Cefepime. WBC improved. Vanco d/c'd 02/07 due to negative MRSA screen. -currently on 4L (typically wears 2L), no documented hypoxia therefore will attempt to wean O2 -Will de-escalate to Cefepime to PO cefuroxime today. Monitor for one day on PO antibiotics. Likely d/c back to [facility] tomorrow. (2) Chest pain: Plan: -patient with poor insight to her diseases processes and unreliable historian -no hx of CAD, trops negative, EKG nonischemic (3) Alzheimer's dementia: Plan: -High risk for delirium, reorient as needed (4) Hypertension: Plan: -BP controlled, continue home amlodipine and Lasix (5) Chronic respiratory failure: (6) Pulmonary fibrosis: Plan: -Known history of this -Not on inhaler therapy, Outpatient notes/specialty unavailable -Pulmonary outpatient follow-up recommended -chronically on 2L (7) Depression: Plan: -Chronically on lexapro and Remeron, continue this per home regimen. (8) Osteoarthritis: Plan: -cont scheduled APAP per home regimen (9) DVT prophylaxis: Plan: -SQ heparin Dispo - likely d/c back to [facility] tomorrow, will update daughter today Admission and Anticipated Discharge Date Admission Date: February 06, 2021 Supervising Physician Co-Signing Physician Notes I have seen and examined the patient and have discussed the case with the provider above. I agree with the assessment and plan as stated with the following exceptions. Mrs. Stoddard is unable to give an accurate history and is oriented to self only. She is breathing normally and reports no coughing today. She won't allow me to listen to her lungs as when I do, she is talking the whole time. She is cachectic appearing but in no acute distress. Agree with de-escalation to oral medications. Added doxycycline to cefuroxime (increased QTc precludes addition of azithromycin). Cont for short 7 day course total. Flu swab ordered but not collected. At this point, as she is improved clinically on current therapy, this won't changer fixer. She is cleared from a medical standpoint to return back to [facility] in am. Perez, DO Subjective Patient seen and examined. Underlying Alzheimer's Dementia. Somewhat uncooperative with exam. Offers no complaints. Currently on 4L O2 (typically wears 2L) Review of Systems Review of Systems: ROS unobtainable 2/2 dementia Physical Exam Constitutional: + thin and + cachectic; no acute distress Respiratory: Auscultation: + crackles (BL - chronic pulmonary fibrosis lung sounds) Cardiovascular: Rate/Rhythm: regular rate and regular rhythm Vessels: normal peripheral pulses Extremities: no edema Gastrointestinal (Abdomen): Percussion/Palpation: abdomen soft; abdomen nontender Skin: no rashes, warm and dry Neurologic: no focal motor deficits Psychiatric: Orientation: alert and oriented to person; + not oriented to place and + not oriented to time Mood: + irritable mood Insight: + limited insight Results & Data Results & Data ([place]) Vital Signs (Past 12 Hours) Vital Signs Temp Pulse Resp BP Pulse Ox 02/08/21 07:50 36.6 C 67 20 163/72 H 99 02/07/21 22:45 36.5 C 67 20 146/77 H 99 Laboratory Results [facility] 02/08/21 06:13 Creatinine 0.39 L (1) Pneumonia Laterality: unspecified laterality Lung location: unspecified part of lung Pneumonia type: due to unspecified organism Qualified Code(s): J18.9 - Pneumonia, unspecified organism
--- NOTE | 2021-02-08 12:03 | Electrocardiogram Report ---
Test Reason : Blood Pressure : / mmHG Vent. Rate : 067 BPM Atrial Rate : 067 BPM P-R Int : 196 ms QRS Dur : 088 ms QT Int : 468 ms P-R-T Axes : 021 -29 045 degrees QTc Int : 494 ms Normal sinus rhythm Minimal voltage criteria for LVH, may be normal variant Septal infarct (cited on or before 31-MAY-2017) Abnormal ECG When compared with ECG of 06-FEB-2021 14:30, (unconfirmed) Vent. rate has decreased BY 36 BPM Confirmed by Pardeep Nelson ([id number]) on 02/08/2021 12:03:20 PM Referred By: Rajesh lowry [facility] Confirmed By:Pardeep Nelson
[2021-02-08] MEDS: DOCUSATE SODIUM/SENNA 50/8.6MG TAB PO SCH (20:47)
[2021-02-08] MEDS: MIRTAZAPINE TAB 15 MG TAB PO SCH (20:47)
[2021-02-08] MEDS: DOXYCYCLINE HYCLATE 100 MG CAP PO SCH (22:14)
[2021-02-09 07:08] LABS: Creatinine Clr Calc Pharmacy 77.3 ml/min; Est GFR (African American) 116.1 ml/min; Est GFR (Non-African American) 100.2 ml/min
[2021-02-09 07:44] LABS: Influenza A PCR Not Detected (NotDetected); Influenza B PCR Not Detected (NotDetected)
--- NOTE | 2021-02-09 08:22 | Discharge Summary ---
Date of Service February 09, 2021 Admission HPI Per Admitting Provider 85 yo F with Alzheimer's dementia presents to the ER for evaluation of increased SOB and chest pain reported this morning. This patient reported only a few minutes of subxiphoid (she pointed) chest pain this morning brought on by "multiple people wanting to eat..." and then she went into a story that didn't make sense. She was upset because "the kids want to use this (pointing to the remote in the room) and eventually I guess I'm ok with it..." She is not oriented to self (can't tell me her name), place or time. She is an unreliable historian and began to become more flustered with an attempt at physican exam. She grabbed my hand and pushed me away, so this was not performed. She also turned to me and began bucking her teeth and making a mockery of what I was saying. We ended the interview at this point. I contacted her daughter by phone and updated her on the situation. Additionally, I reviewed the outpatient notes. The last evaluation on 02/02 states that she has had a cough, hoarse voice (not appreciated tonight), body aches, and fatigue which began on 02/01. No fevers or chills reported. She is on chronic oxygen and oxygen saturation was stable on her home settings. Exam at that time was uncooperative, however her pulmonary exam revealed expiratory rhonchi in the left mid field with noted poor inspiration and poor cooperation. CXR reviewed with possible pneumonia and she has been started on broad spectrum antibiotics. Urinalysis is pending. Procalcitonin is pending. BNP is normal and she doesn't appear fluid overloaded on exam. 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 Admission Exam Per Admitting Provider CONSTITUTIONAL: thin, frail, elderly, vitals as above, generally well-appearing and in NAD. EYES: normal conjunctivae, no scleral icterus ENT: external ear and nose normal, pt declined OP exam. NECK: trachea midline, declined neck exam for LAD check RESPIRATORY: normal respiratory effort, oxygenating 98% on 3LPM, declined pulmonary exam. CARDIOVASCULAR: no peripheral edema, declined cardiac exam. CHEST: inspection of chest was normal GASTROINTESTINAL: soft, nontender, nondistended, pushed me away during this part of the exam. MUSCULOSKELETAL: strength 5/5 throughout, head is normocephalic and atraumatic SKIN: warm and dry NEUROLOGIC: CN 2-12 grossly intact,normal cognition, normal speech, no tremor PSYCHIATRIC: alert, uncooperative, disoriented to seld, place and time. Principal Diagnosis Pneumonia Discharge Exam Constitutional + ill appearing (chronically) and + cachectic; no acute distress Respiratory normal respiratory effort; no respiratory distress Auscultation: + diminished lung sounds and + crackles (BL - chronic pulmonary fibrosis lung sounds) Cardiovascular Rate/Rhythm: regular rate and regular rhythm Vessels: normal peripheral pulses Extremities: no edema Gastrointestinal (Abdomen) Percussion/Palpation: abdomen soft; abdomen nontender Skin no rashes, warm and dry Neurologic no focal motor deficits Psychiatric Orientation: alert and oriented to person; + not oriented to place and + not judy ented to time Insight: + limited insight Discharge Data Allergies Allergy/AdvReac Type Severity Reaction Status Date / Time SHO Inhibitors Allergy Unknown ON [facility] Verified 02/06/21 15:11 MED LIST alendronate sodium Allergy Unknown ON [facility] Verified 02/06/21 15:11 MED LIST amoxicillin Allergy Unknown ON [facility] Verified 02/06/21 15:11 MED LIST capsaicin Allergy Unknown ON [facility] Verified 02/06/21 15:11 MED LIST clavulanic acid Allergy Unknown ON [facility] Verified 02/06/21 15:11 MED LIST diclofenac Allergy Unknown ON [facility] Verified 02/06/21 15:11 MED LIST ezetimibe Allergy Unknown ON [facility] Verified 02/06/21 15:11 MED LIST metronidazole [From Flagyl] Allergy Unknown ON [facility] Verified 02/06/21 15:11 MED LIST pravastatin Allergy Unknown ON [facility] Verified 02/06/21 15:11 MED LIST rosuvastatin Allergy Unknown ON [facility] Verified 02/06/21 15:11 MED LIST Ecpethl-XHA-XlE Reductase Allergy Unknown ON [facility] Verified 02/06/21 15:11 Inhibitor MED LIST [Iqpchmv-Fkk-Rcb Reductase Inhibitor] Consultations none Ordered Studies CXR IMPRESSION: Diffuse interstitial thickening consistent with interstitial lung disease with pulmonary fibrosis. Mild superimposed left basilar opacity would be difficult to exclude. Radiographic follow-up is recommended. Hospital Course (1) Pneumonia: -Presented from [facility] with reports of SOB and ?chest pain. WBC 15K, rhonci on exam, CXR ? pneumonia. Patient poor historian. -Received Vanco and Cefepime. WBC improved. Vanco d/c'd 02/07 due to negative MRSA screen. -was on 4L (typically wears 2L), however no documented hypoxia. Patient was weaned to usual 2L without difficulty. -De-escalated Cefepime to PO cefuroxime/doxycycline. Continue to complete a short 7 day course. (2) Chest pain: -patient with poor insight to her diseases processes and unreliable historian -no hx of CAD, trops negative, EKG nonischemic (3) Alzheimer's dementia: -High risk for delirium, reorient as needed (4) Hypertension: -BP controlled, continue home amlodipine and Lasix (5) Chronic respiratory failure: (6) Pulmonary fibrosis: -Known history of this -Not on inhaler therapy, Outpatient notes/specialty unavailable -Pulmonary outpatient follow-up recommended -chronically on 2L (7) Depression: -Chronically on lexapro and Remeron, continue this per home regimen. (8) Osteoarthritis: -cont scheduled APAP per home regimen Total Time Total Time Spent Total Time Spent (In Minutes): 35 Discharge Plan Discharge Items Patient Disposition: Transfer Residential Fac Reason For Visit: Shortness of Breath, Chest Pain Discharge Diagnosis: Pneumonia Activity: Resume your previous activity Non-emergency contact: Primary Care Provider Call non-emergency contact if: you have any medication questions and you have a fever Follow-up/Referrals: Rajesh Hammer at [facility] [Primary Care Provider] - Diet: Regular Addtl Attending Provider Instructions: Patient presented to the hospital with worsening shortness of breath and ? chest pain. Symptoms felt to be due to pneumonia. Received IV ceftriaxone/Vanco which was de-escalated to PO cefuroxime and doxycycline. Patient should continue cefuroxime and doxycycline to complete 7 days of therapy. Patient did well on her chronic 2L of oxygen. Pending Studies at Discharge: No Stand-Alone Forms: My [facility] Skilled Items Patient informed of condition?: Yes DNR: Yes Discharge Level of Care: Skilled Communicable Disease: No Discharge Prognosis: Stable Lines: None Urinary Catheter: No Medications and DC Order Prescriptions: New doxycycline hyclate 100 mg Capsule 100 mg PO BID Qty: 7 RF: 0 cefuroxime axetil 500 mg Tablet 500 mg PO BID Qty: 7 RF: 0 Continued aspirin 81 mg Tablet,Delayed Release (Dr/Ec) 81 mg PO QAM RF: 0 calcium citrate-vitamin D3 [Calcium Citrate + D] 315 mg-5 mcg (200 unit) Tablet 1 tab PO QAM RF: 0 cholecalciferol (vitamin D3) [Vitamin D3] 50 mcg (2,000 unit) Capsule 50 mcg PO QAM RF: 0 sennosides-docusate sodium [Senokot-S] 8.6-50 mg Tablet 2 tab PO HS Qty: 60 RF: 0 folic acid 1 mg Tablet 1 mg PO QAM Qty: 30 RF: 0 dextromethorphan-guaifenesin 10-100 mg/5 mL Syrup 10 ml PO Q6H RF: 0 furosemide [Lasix] 20 mg Tablet 10 mg PO QAM RF: 0 mirtazapine [Remeron] 15 mg Tablet 15 mg PO HS RF: 0 escitalopram oxalate [Lexapro] 10 mg Tablet 10 mg PO QAM RF: 0 chlorhexidine gluconate [Peridex] 0.12 % Mouthwash 5 ml BUCCAL HS RF: 0 Barrier Cream 1 applic topical TID RF: 0 amlodipine 5 mg tablet 5 mg PO QAM RF: 0 acetaminophen 500 mg tablet 1,000 mg PO BID RF: 0 Discharge Orders: Discharge Order (Routine); Ordered 02/09/21 Ordered By: Pam Granger Admission Data Admit Date/Time: 02/06/21 17:07 Attending Provider: Elizabet Moncada Admit Provider: Trina Todd Primary Care Provider: Rajesh Hammer [facility] Other Providers: Trina Todd Other Interventions: Discharge Summary Assessment (RN) Last Done: 02/09/21 11:34 Supervising Physician Co-Signing Physician Notes I have seen and examined the patient and have discussed the case with the provider above. I agree with the assessment and plan as stated with the following exceptions. Mrs. Stoddard is unable to give an accurate history and is oriented to self only. She is breathing normally and reports no coughing today. She won't allow me to listen to her lungs as when I do, she seems more irritated and did not cooperate for exam. RN was present at bedside exam.. She is cachectic appearing but in no acute distress. Agree with the plan above. Cont for short 7 day course total antibiotic. At this point, as she has improved clinically on current therapy. Patient discharged to SNF. Patient to complete the course of antibiotic in the form of p.o. Patient to follow-up with PCP within a week time and follow-up CXR in 4 to 6 weeks time to document resolution of pneumonia.
[2021-02-09] MEDS: cefUROXime axetil 500 MG TAB PO SCH ×2 (09:19→11:34)
[2021-02-09] MEDS: ESCITALOPRAM OXALATE 10 MG TAB PO SCH ×2 (09:19→10:50)
[2021-02-09] MEDS: DOXYCYCLINE HYCLATE 100 MG CAP PO SCH ×2 (09:19→11:34)
[2021-02-09] MEDS: ASPIRIN 81 MG ECTAB PO SCH ×2 (09:19→10:49)
[2021-02-09] MEDS: amLODIPine BESYLATE 5 MG TAB PO SCH ×2 (09:19→11:34)
[2021-02-09] MEDS: FUROSEMIDE 20 MG TAB PO SCH ×2 (09:19→10:50)
[2021-02-09] MEDS: HEPARIN SOD 5,000 UNIT/0.5 ML VIAL SQ SCH ×2 (09:20→10:50)
[2021-02-09] MEDS: ACETAMINOPHEN 500 MG TAB PO SCH (09:32)
[2021-02-09 09:41] LABS: Adenovirus PCR Not Detected (NotDetected); Bordetella parapertussis PCR Not Detected (NotDetected); Bordetella pertussis PCR Not Detected (NotDetected); Chlamydia pneumoniae PCR Not Detected (NotDetected); Coronavirus 229E PCR Not Detected (NotDetected); Coronavirus CoV-2 (COVID19)PCR Not Detected (NotDetected); Coronavirus HKU1 PCR Not Detected (NotDetected); Coronavirus NL63 PCR Not Detected (NotDetected); Coronavirus OC43PCR Not Detected (NotDetected); Human Metapneumovirus PCR Not Detected (NotDetected); Influenza A PCR Not Detected (NotDetected); Influenza B PCR Not Detected (NotDetected); Mycoplasma pneumoniae PCR Not Detected (NotDetected); Parainfluenza Virus 1 PCR Not Detected (NotDetected); Parainfluenza Virus 2 PCR Not Detected (NotDetected); Parainfluenza Virus 3 PCR Not Detected (NotDetected); Parainfluenza Virus 4 PCR Not Detected (NotDetected); Respiratory Syncytial VirusPCR Not Detected (NotDetected)
[2021-02-09 09:43] LABS: Rhinovirus/Enterovirus PCR DETECTED (NotDetected)
== END 2021-02-09 12:30 | DRG 193 ==
LOC: ED 14:18 → 2S 17:07 → SUATTDRO 17:07 → 2S 20:47 → 3N 02-07 18:33
DX: M81.0 Age-related osteoporosis without current pathological fracture; Z68.1 Body mass index [BMI] 19.9 or less, adult; I50.9 Heart failure, unspecified; F02.80 Dementia in other diseases classified elsewhere, unspecified severity, without behavioral disturbance, psychotic disturbance, mood disturbance, and anxiety; J96.11 Chronic respiratory failure with hypoxia; Z88.3 Allergy status to other anti-infective agents; J84.10 Pulmonary fibrosis, unspecified; E43 Unspecified severe protein-calorie malnutrition; E53.8 Deficiency of other specified B group vitamins; F41.9 Anxiety disorder, unspecified; G30.9 Alzheimer's disease, unspecified; Z79.899 Other long term (current) drug therapy; Z79.82 Long term (current) use of aspirin; F32.9 Major depressive disorder, single episode, unspecified; M19.90 Unspecified osteoarthritis, unspecified site; Z88.6 Allergy status to analgesic agent; J18.9 Pneumonia, unspecified organism; Z88.0 Allergy status to penicillin; B34.8 Other viral infections of unspecified site; Z66 Do not resuscitate; Z88.8 Allergy status to other drugs, medicaments and biological substances; D72.829 Elevated white blood cell count, unspecified; I11.0 Hypertensive heart disease with heart failure; Z51.81 Encounter for therapeutic drug level monitoring